=== PATIENT | female | born 1985 | race Caucasian/White ===

== ENCOUNTER 2018-04-23 00:23 | Emergency (ER) | payer BC, OTHER ==
[~2018-04-23] VITALS: Ht 160 cm; Wt 58.1 kg
--- OUTSIDE RECORDS SUMMARY | 2018-04-23 00:28 | XMS REPORT ---
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 Name Role Phone JANEDANY LawsonELE Unavailable PROBLEMS Unknown Problems ALLERGIES No Known Allergies ENCOUNTERS Encounter Location Date Diagnosis [facility] [address] [facility] [id number] [place] [address] Aug, Strep pharyngitis J02.0 and Sore throat J02.9 IMMUNIZATIONS No Known Immunizations SOCIAL HISTORY Never Assessed REASON FOR VISIT sore throat started last night JStrasserRN PLAN OF CARE Activity Details Follow Up prn Reason: VITAL SIGNS Height 63.75 in 2017-09-02 Weight 150.4 lbs 2017-09-02 Temperature 97.9 degrees Fahrenheit 2017-09-02 Heart Rate 80 bpm 2017-09-02 Respiratory Rate 20 2017-09-02 BMI 26.02 kg/m2 2017-09-02 Blood pressure systolic 128 mmHg 2017-09-02 Blood pressure diastolic 80 mmHg 2017-09-02 MEDICATIONS Medication Instructions Dosage Frequency Start Date End Date Duration Status Amoxicillin 500 mg Orally every 12 hrs 1 capsule 12h 18 Aug, 2017 Aug, 10 day(s) Active RESULTS Name Result Date Reference Range STREP A (IN HOUSE) 2017-09-02 STREP A positive Control + Lot # [id number] Exp date 08-15-2018 PROCEDURES Procedure Date Ordered Result Body Site STREP A ASSAY W/OPTIC Sep 02, 2017 INSTRUCTIONS MEDICATIONS ADMINISTERED No Known Medications
[2018-04-23 00:42] LABS: BASOPHILS % (AUTO) 1 % (0-10); EOSINOPHILS # (AUTO) 0.1 10^3/uL (0.0-0.3); EOSINOPHILS % (AUTO) 1 % (0-10); HEMATOCRIT 38 % (35-52); HEMOGLOBIN 12.7 G/DL (11.5-16.0); LYMPHOCYTES # (AUTO) 2.3 X 10^3 (1.0-4.0); LYMPHOCYTES % (AUTO) 54 % (12-44); MEAN CORPUSCULAR HEMOGLOBIN 28 PG (25-34); MEAN CORPUSCULAR HGB CONC 33 G/DL (32-36); MEAN CORPUSCULAR VOLUME 84 FL (80-99); MEAN PLATELET VOLUME 9.2 FL (7.4-10.4); MONOCYTES # (AUTO) 0.4 X 10^3 (0.0-1.0); MONOCYTES % (AUTO) 10 % (0-12); NEUTROPHILS # (AUTO) 1.5 X 10^3 (1.8-7.8); NEUTROPHILS % (AUTO) 35 % (42-75); PLATELET COUNT 212 10^3/uL (130-400); RED BLOOD COUNT 4.53 10^6/uL (4.35-5.85); RED CELL DISTRIBUTION WIDTH 18.8 % (10.0-14.5); WHITE BLOOD COUNT 4.2 10^3/uL (4.3-11.0)
[2018-04-23] MEDS ORDERED: PANTOPRAZOLE 40 MG/10 ML (PROTONIX) VIAL IV ONE (00:45)
[2018-04-23] MEDS ORDERED: HYOSCYAMINE 0.125 MG (LEVSIN) TAB PO ONE (00:45)
[2018-04-23] MEDS ORDERED: KETOROLAC 30 MG/ML VIAL IVP STA (00:45)
[2018-04-23] MEDS ORDERED: LEVO75TA6 PO (00:57)
[2018-04-23 01:03] LABS: PROTHROMBIN TIME PATIENT 12.8 SEC (12.2-14.7)
[2018-04-23 01:10] LABS: ALANINE AMINOTRANSFERASE 53 U/L (0-55); ALBUMIN 4.6 GM/DL (3.2-4.5); ALKALINE PHOSPHATASE 62 U/L (40-136); AMYLASE 61 U/L (25-125); BILIRUBIN,TOTAL 0.4 MG/DL (0.1-1.0); BUN/CREATININE RATIO 11; CALCIUM 9.6 MG/DL (8.5-10.1); CARBON DIOXIDE 27 MMOL/L (21-32); CHLORIDE 101 MMOL/L (98-107); CREATINE KINASE 45 U/L (29-168); GFR ESTIMATED 57; GLUCOSE 97 MG/DL (70-105); LIPASE 40 U/L (8-78); MAGNESIUM 1.9 MG/DL (1.8-2.4); POTASSIUM 3.5 MMOL/L (3.6-5.0); SODIUM 141 MMOL/L (135-145); TOTAL PROTEIN 7.2 GM/DL (6.4-8.2)
[2018-04-23 01:18] LABS: CREATINE KINASE MB 0.7 NG/ML (<6.6); MYOGLOBIN SERUM 19.6 NG/ML (10.0-92.0)
[2018-04-23] MEDS ORDERED: NS 250 ML (IVPB) BAG IV ONE (01:30)
[2018-04-23] MEDS ORDERED: IOHEXOL 350 MG/ML 150 ML (OMNIPAQUE 350) VIAL IV ONE (01:30)
[2018-04-23] MEDS ORDERED: RX-HYOSCYAMINE 0.125 MG SL (LEVSIN) PPK#6 SL STA (02:41)
[2018-04-23] MEDS ORDERED: RX-ONDANSETRON 4 MG ODT (ZOFRAN) PPK #4 PO STA (02:41)
[2018-04-23] MEDS ORDERED: RX-HYDROCODONE/APAP 5/325 MG #4 TAB PK PO PRN (02:45)
[2018-04-23] MEDS ORDERED: ACHD5005 PO (02:47)
[2018-04-23] MEDS ORDERED: PANT40TA2 PO (02:47)
[2018-04-23] MEDS ORDERED: HYOS0.1283 SL (02:47)
[2018-04-23] MEDS ORDERED: ONDA4TAB8 PO (02:47)
--- NOTE | 2018-04-23 02:47 | ED Chest Pain ---
General Chief Complaint: Chest Pain Stated Complaint: CP Nursing Triage Note: TO ED AMB WITH REPORT OF CP STARTING AFTER EATING MEAL OF FRIED FOOD AT 2130. PT W/ SUBSTERNAL CP AND EPIGASTRIC TENDERNESS. PAIN WAS "10" AND NOW "3-4" Nursing Sepsis Screen: No Definite Risk Allergies and Home Medications Allergies Uncoded Allergies: NEOSPORIN (Adverse Reaction, Unknown, 04/23/18) Home Medications Levothyroxine Sodium 75 Mcg Tablet, 75 MCG PO DAILY, (Reported) Past Sptpwxc-Ozdapw-Mjsciz Hx Patient Social History Alcohol Use: Denies Use Recreational Drug Use: No Smoking Status: Never a Smoker Recent Foreign Travel: No Contact w/Someone Who Travel: No Recent Infectious Disease Expo: No Recent Hopitalizations: Yes ( 03/08/18) Seasonal Allergies Seasonal Allergies: No Past Medical History Surgeries: Yes (D&C, X 4) Section Respiratory: Yes (HX CHILDHOOD ASTHMA) Asthma Neurological: No : No Hx : 8 Hx Para: 5 Hx Total # of Abortions (Sp): 4 Genitourinary: No Gastrointestinal: No Musculoskeletal: No Endocrine: Yes (THYROIDITIS-TX RADIOACTIVE IODINE) HEENT: No Cancer: No Psychosocial: No Integumentary: No (STAPH INFECTION INCISION AFTER ) Blood Disorders: No Physical Exam Vital Signs Vital Signs - First Documented 04/23/18 00:26 Temp 98.4 Pulse 78 Resp 20 B/P (MAP) 157/80 (105) Pulse Ox 96 O2 Delivery Room Air Capillary Refill : Less Than 3 Seconds Height, Weight, BMI Height: 5'3.00" Weight: 128lbs. oz. 58.219430lf; BMI Method:Stated Progress/Results/Core Measures Results/Orders Lab Results Laboratory Tests Test 04/23/18 00:35 Range/Units White Blood Count 4.2 L 4.3-11.0 10^3/uL Red Blood Count 4.53 4.35-5.85 10^6/uL Hemoglobin 12.7 11.5-16.0 G/DL Hematocrit 38 35-52 % Mean Corpuscular Volume 84 80-99 FL Mean Corpuscular Hemoglobin 28 25-34 PG Mean Corpuscular Hemoglobin Concent 33 32-36 G/DL Red Cell Distribution Width 18.8 H 10.0-14.5 % Platelet Count 212 130-400 10^3/uL Mean Platelet Volume 9.2 7.4-10.4 FL Neutrophils (%) (Auto) 35 L 42-75 % Lymphocytes (%) (Auto) 54 H 12-44 % Monocytes (%) (Auto) 10 0-12 % Eosinophils (%) (Auto) 1 0-10 % Basophils (%) (Auto) 1 0-10 % Neutrophils # (Auto) 1.5 L 1.8-7.8 X 10^3 Lymphocytes # (Auto) 2.3 1.0-4.0 X 10^3 Monocytes # (Auto) 0.4 0.0-1.0 X 10^3 Eosinophils # (Auto) 0.1 0.0-0.3 10^3/uL Basophils # (Auto) 0.0 0.0-0.1 10^3/uL Prothrombin Time 12.8 12.2-14.7 SEC INR Comment 1.0 0.8-1.4 Activated Partial Thromboplast Time 28 24-35 SEC Sodium Level 141 135-145 MMOL/L Potassium Level 3.5 L 3.6-5.0 MMOL/L Chloride Level 101 98-107 MMOL/L Carbon Dioxide Level 27 21-32 MMOL/L Anion Gap 13 5-14 MMOL/L Blood Urea Nitrogen 12 7-18 MG/DL Creatinine 1.10 0.60-1.30 MG/DL Estimat Glomerular Filtration Rate 57 BUN/Creatinine Ratio 11 Glucose Level 97 70-105 MG/DL Calcium Level 9.6 8.5-10.1 MG/DL Corrected Calcium 8.5-10.1 MG/DL Magnesium Level 1.9 1.8-2.4 MG/DL Total Bilirubin 0.4 0.1-1.0 MG/DL Aspartate Amino Transf (AST/SGOT) 54 H 5-34 U/L Alanine Aminotransferase (ALT/SGPT) 53 0-55 U/L Alkaline Phosphatase 62 40-136 U/L Total Creatine Kinase 45 29-168 U/L Creatine Kinase MB 0.7 <6.6 NG/ML Myoglobin 19.6 10.0-92.0 NG/ML Troponin I < 0.30 <0.30 NG/ML B-Type Natriuretic Peptide 13.6 <100.0 PG/ML Total Protein 7.2 6.4-8.2 GM/DL Albumin 4.6 H 3.2-4.5 GM/DL Amylase Level 61 25-125 U/L Lipase 40 8-78 U/L Serum Test, Qualitative NEGATIVE NEGATIVE My Orders Orders - CARLITOS DUNNE DO Cbc With Automated Diff (04/23/18 00:34) Magnesium (04/23/18 00:34) Chest 1 View, Ap/Pa Only (04/23/18 00:34) Ekg Tracing (04/23/18:34) Cardiac Profile 1 (04/23/18:34) Comprehensive Metabolic Panel (04/23/18:34) Myoglobin Serum (04/23/18:34) Protime With Inr (04/23/18:34) Partial Thromboplastin Time (04/23/18:34) O2 (04/23/18:34) Monitor-Rhythm Ecg Trace Only (04/23/18:34) Lipid Panel (04/24/18 06:00) Saline Lock/Iv-Start (04/23/18:34) Creatine Kinase (04/23/18:34) Creatine Kinase Mb (04/23/18:34) Lipase (04/23/18 00:34) Amylase (04/23/18:34) BNP (04/23/18:34) Hcg,Qualitative Serum (04/23/18:34) Ct Angio Chst/Abd/Pelv W (04/23/18 00:45) Ketorolac Injection (Toradol Injection) (04/23/18 00:45) Hyoscyamine Sl Tablet (Levsin Sl Tablet) (04/23/18 00:45) Pantoprazole Injection (Protonix Injecti (04/23/18 00:45) Iohexol Injection (Omnipaque 350 Mg/Ml 1 (04/23/18 01:30) Ns (Ivpb) (Sodium Chloride 0.9%) (04/23/18 01:30) Rx-Hydrocodone/Apap 5-325 Mg (Rx-Vicodin (04/23/18 02:45) Rx-Hyoscyamine Tab (Rx-Levsin Sl) (04/23/18 02:41) Rx-Ondansetron Po (Rx-Zofran Po) (04/23/18 02:41) Medications Given in ED Current Medications Medications Dose Ordered Sig/Suzanna Route Start Time Stop Time Status Last Admin Dose Admin Hyoscyamine Sulfate 0.25 mg ONCE ONCE PO 04/23/18 00:45 04/23/18 00:48 DC 04/23/18 00:59 0.25 MG Iohexol 150 ml ONCE ONCE IV 04/23/18 01:30 04/23/18 01:31 DC 04/23/18 01:26 125 ML Pantoprazole 40 mg ONCE ONCE IV 04/23/18 00:45 04/23/18 00:48 DC 04/23/18 01:00 40 MG Sodium Chloride 250 ml ONCE ONCE IV 04/23/18 01:30 04/23/18 01:31 DC 04/23/18 01:26 80 ML Vital Signs/I&O 04/23/18 04/23/18 04/23/18 00:26 00:26 00:59 Temp 98.4 98.4 Pulse 78 Resp 20 B/P (MAP) 157/80 (105) Pulse Ox 96 O2 Delivery Room Air Room Air Blood Pressure Mean: 105 Departure Impression Primary Impression: Biliary colic Disposition: HOME, SELF-CARE Condition: Improved Departure-Patient Inst. Referrals: SHALA BUNN DO UNKNOWN (PCP) Primary Care Physician Patient Instructions: POSS GALLSTONE-W/BILIARY COLIC Add. Discharge Instructions: CLEAR LIQUIDS FOR 1-2 DAYS--WATER, BROTH, JELLO, GATORADE WHEN YOU ARE FEELING BETTER, ADD BRATS DIET TO CLEAR LIQUIDS--BANANAS, RICE, APPLESAUCE, TOAST. SALTINES THEN YOU MAY FOLLOW A BLAND DIET AFTER THAT FOLLOW UP WITH DR. BANKS TOMORROW SCHEDULED FOLLOW UP WITH DR. BUNN OR SURGEON OF CHOICE FOR GALLBLADDER AND POSSIBLE ABSCESS/FLUID AROUND SCAR All discharge instructions reviewed with patient and/or family. Voiced understanding. Scripts Hydrocodone Bit/Acetaminophen (Hydrocodone/Acetaminophen 5/325mg Tablet) 1 Tab Tab 1 EACH PO Q4H, #20 TAB Prov: CARLITOS DUNNE DO 04/23/18 Ondansetron (Zofran Odt) 4 Mg Tab.rapdis 4 MG PO Q4H for Nausea/Vomiting, #10 TAB Prov: KELLIE DUNNEA K DO 04/23/18 Hyoscyamine Sulfate (Levsin-Sl) 0.125 Mg Tab.subl 1-2 TAB SL Q4H for Abdominal Pain, #15 TAB Prov: CARLITOS DUNNE DO 04/23/18 Pantoprazole Sodium (Protonix) 40 Mg Tablet.dr 40 MG PO DAILY, #15 TAB Prov: CARLITOS DUNNE DO 04/23/18 CARLITOS DUNNE DO Apr 23, 2018 02:47
[2018-04-23 03:15] VITALS: BP 113/82
--- NOTE | 2018-04-23 07:41 | Diagnostic Imaging Report ---
EXAMINATION: Chest radiograph, portable AP view. DATE: April 23, 2018 at 01:30 hours. INDICATION: 33-year-old female, epigastric pain. COMPARISON: None. FINDINGS: Heart size and mediastinal contours are unremarkable. There is no identified pneumothorax. There is no large pleural effusion. There are linear opacities in the mid to lower lung zones most likely reflecting scarring and chronic lung changes. There is no focal airspace consolidation. IMPRESSION: 1. Changes of chronic lung disease which are most prominent in the xjy-xs-xwnwd lung zones. 2. No identified acute cardiopulmonary abnormality. Dictated by: Dictated on workstation # [id number]
--- NOTE | 2018-04-23 08:49 | Diagnostic Imaging Report ---
PROCEDURE: CT angiography of the chest with contrast and CT abdomen and pelvis with contrast. TECHNIQUE: Multiple contiguous axial images were obtained through the chest, abdomen and pelvis after administration of intravenous contrast. Reconstructed MIP CT angiography acquisitions of the aorta were then performed. DATE: April 23, 2018. COMPARISON: Chest radiograph April 23, 2018. INDICATION: 33-year-old female, epigastric pain after eating fried food. FINDINGS: There are linear opacities with associated distortion in the right upper lobe, right middle lobe, right lower lobe, left upper lobe, and left lower lobe compatible with areas of scarring. There are foci of bronchiectasis. There is somewhat mosaic lung attenuation. There is no pulmonary nodule or mass. There are somewhat dilated right lower lobe pulmonary artery branches. There is no additional focal airspace consolidation. There is no pneumothorax. There is no pleural effusion. The central airways are patent. There is no identified pulmonary embolus. The heart is not enlarged. There is no pericardial effusion. There is pectus excavatum. There is no abnormally enlarged mediastinal, hilar, or axillary lymph node which meets CT size criteria for adenopathy. There is no CT apparent esophageal wall thickening. There is no visible foreign body. The liver is unremarkable in size and contour. There is no identified liver lesion. The main, right, and left portal veins are patent. There is low attenuation on both sides of the portal triads likely reflecting mild periportal edema. The gallbladder is mildly distended. There is no CT apparent gallstone. There is no evidence of acute cholecystitis. There is no intrahepatic or extrahepatic bile duct dilation. The main pancreatic duct is not abnormally dilated. The pancreatic parenchyma is unremarkable. The spleen is normal in size. There is an accessory splenule on axial image 34. The adrenal glands are unremarkable. Unremarkable appearance of the renal parenchyma. The urinary collecting systems are not distended. There is no identified renal or ureteral stone. The urinary bladder is unremarkable in appearance. There is very heterogeneous attenuation of the uterus which is prominent in size. There is low attenuation within the central aspect of the uterus which may potentially reflect fluid within the endometrial canal. There is a oval fat-containing focus in the left adnexa potentially relating to a small dermoid measuring 7 mm in size on axial image 69. The intestinal tract is not distended. There are no findings to specifically suggest acute appendicitis. There is a small fat-containing umbilical hernia. There is no free intraperitoneal air. There is a akvtq-mp-slbfd amount of free pelvic fluid. There is a peripherally enhancing area of fluid in the lower anterior abdominal wall subcutaneous tissues measuring 4.0 x 1.2 cm in size. There is no identified abnormally enlarged lymph node within the abdomen or pelvis which meets CT size criteria for adenopathy. There is no identified acute bony abnormality. IMPRESSION: CT CHEST, ABDOMEN, AND PELVIS: 1. Multifocal scarring and fibrotic changes within the lungs bilaterally with areas of mild bronchiectasis in mosaic lung attenuation most likely reflecting small airways disease and air-trapping. 2. No identified acute cardiopulmonary abnormality. 3. Peripherally enhancing fluid collection within the lower anterior abdominal wall subcutaneous tissues which may potentially reflect abscess, hematoma, or seroma measuring 4.0 x 1.2 cm in size. Recommend correlation clinically. 4. Very heterogeneous appearance of the uterus which is enlarged with fluid in the endometrial canal. This is entirely nonspecific in appearance. Gynecologic evaluation may be helpful. 5. A 7 mm round fat attenuation focus in the left adnexa which may potentially reflect a small dermoid. 6. Eetsc-or-ldoqg volume of free pelvic fluid. Dictated by: Dictated on workstation # [id number]
== END 2018-04-23 03:15 | disposition home or self-care (01) ==
LOC: ER 00:24
DX: K80.50 Calculus of bile duct without cholangitis or cholecystitis without obstruction (principal); J45.909 Unspecified asthma, uncomplicated; Z88.1 Allergy status to other antibiotic agents
CPT/HCPCS: 36415; 71045; 71275; 74174; 80053; 82150; 82550; 82553; 83690; 83735; 83874; 83880; 84484; 84703; 85025; 85610; 85730; 93005; 93041; 96374; 96375

== ENCOUNTER 2018-06-20 06:41 | Outpatient (CLI) | payer BC ==
[~2018-06-20] VITALS: Ht 160 cm; Wt 59.0 kg
[~2018-06-20 06:41] MED LIST: ACHD5005 PO; HYOS0.1283 SL; LEVO75TA6 PO; ONDA4TAB8 PO; PANT40TA2 PO
[2018-06-20] MEDS ORDERED: bcp PO (12:37)
[2018-06-23] MEDS ORDERED: ACHD5005 PO (10:01)
== END 2018-06-20 12:43 | disposition home or self-care (01) ==
LOC: PREOP 06:41
PROVIDERS: ATTEND Surgery
DX: Z01.818 Encounter for other preprocedural examination (principal)

== ENCOUNTER 2018-06-23 07:20 | Day surgery (SDC) | payer BC ==
[~2018-06-23] VITALS: Ht 160 cm; Wt 59.0 kg
[~2018-06-23 07:20] MED LIST changes: +bcp PO
[2018-06-23 07:24] VITALS: BP 126/86
[2018-06-23] MEDS ORDERED: LIDOCAINE/EPI 1%-1:200,000 (XYLOCAINE) 10 ML VIAL ONE (07:28)
[2018-06-23] MEDS ORDERED: ceFAZolin 2 GM IV Premixed 50 ML IV ONE (07:30)
[2018-06-23] MEDS: LACTATED RINGERS 1,000 ML IV PRN ×2 (07:40→10:03)
[2018-06-23 07:47] LABS: BASOPHILS % (AUTO) 1 % (0-10); EOSINOPHILS # (AUTO) 0.1 10^3/uL (0.0-0.3); EOSINOPHILS % (AUTO) 1 % (0-10); HEMATOCRIT 37 % (35-52); HEMOGLOBIN 13.1 G/DL (11.5-16.0); LYMPHOCYTES # (AUTO) 1.8 X 10^3 (1.0-4.0); LYMPHOCYTES % (AUTO) 41 % (12-44); MEAN CORPUSCULAR HEMOGLOBIN 31 PG (25-34); MEAN CORPUSCULAR HGB CONC 35 G/DL (32-36); MEAN CORPUSCULAR VOLUME 89 FL (80-99); MEAN PLATELET VOLUME 9.6 FL (7.4-10.4); MONOCYTES # (AUTO) 0.4 X 10^3 (0.0-1.0); MONOCYTES % (AUTO) 9 % (0-12); NEUTROPHILS # (AUTO) 2.1 X 10^3 (1.8-7.8); NEUTROPHILS % (AUTO) 48 % (42-75); PLATELET COUNT 185 10^3/uL (130-400); RED BLOOD COUNT 4.17 10^6/uL (4.35-5.85); RED CELL DISTRIBUTION WIDTH 12.5 % (10.0-14.5); WHITE BLOOD COUNT 4.4 10^3/uL (4.3-11.0)
[2018-06-23] MEDS ORDERED: SEVOFLURANE (ULTANE) 15 ML INHAL SOLN ONE ×2 (08:33→09:41)
[2018-06-23] MEDS ORDERED: DEXAMETHASONE 10 MG/ML (DECADRON) 1 ML VIAL ONE (08:33)
[2018-06-23] MEDS ORDERED: proPOfol 200 MG/20 ML (DIPRIVAN) VIAL IV ONE (08:33)
[2018-06-23] MEDS ORDERED: ROCURONIUM 10 MG/ML 5 ML SYRINGE IV ONE (08:33)
[2018-06-23] MEDS ORDERED: ONDANSETRON 4 MG/2 ML (SDV) Z0FRAN ONE (08:33)
[2018-06-23] MEDS ORDERED: MIDAZOLAM 2 MG/2 ML (VERSED) VIAL ONE (08:33)
[2018-06-23] MEDS ORDERED: fentaNYL INJECTION 100 MCG/2 ML AMP ONE ×2 (08:33→09:26)
--- NOTE | 2018-06-23 09:01 | Progress Note-Pre Operative ---
Pre-Operative Progress Note H&P Reviewed The H&P was reviewed, patient examined and no changes noted. Time Seen by Provider: 08:56 Date H&P Reviewed: Jun 23, 2018 Time H&P Reviewed: 08:57 Pre-Operative Diagnosis: Rosalinda/Rosalinda RYLIE ARIAS DO Jun 23, 2018 09:01
[2018-06-23] MEDS ORDERED: GLYCOPYRROLATE 0.2 MG/ML (ROBINUL) 2 ML VIAL ONE ×2 (09:14→09:22)
[2018-06-23] MEDS ORDERED: NEOSTIGMINE 1 MG/ML 5 ML SYRINGE ONE (09:22)
[2018-06-23] MEDS ORDERED: KETOROLAC 30 MG/ML VIAL ONE (09:49)
--- NOTE | 2018-06-23 10:00 | Progress Note-Post Operative ---
Post-Operative Progess Note Surgeon (s)/Intermediate Manager (s) Surgeon RYLIE ARIAS DO Intermediate Manager: Miguel Pre-Operative Diagnosis Dario/Dario Post-Operative Diagnosis same pending pathology Procedure & Operative Findings Date of Procedure 06/23/18 Procedure Performed/Findings Lap dario with IOC Anesthesia Type GET Estimated Blood Loss Estimated blood loss (mL): scant Specimens/Packing Specimens Removed GB and contents RYLIE ARIAS DO Jun 23, 2018 10:00
[2018-06-23] MEDS ORDERED: ACHD5005 PO (10:01)
--- NOTE | 2018-06-23 10:03 | Discharge Inst-Surgical ---
Discharge Inst-Surgical Depart Medication/Instructions New, Converted or Re-Newed RX: RX Given to Pt/Family Patient Instructions Follow up Appt: Make appointment for 1 week; [phone]. Instructions: No lifting greater than 10 pounds. No strenuous activity. May shower in 24 hours, no tub bath or soaking. Use incentive spirometer at home as directed. No Smoking Skin/Wound Care: May remove bandages in am. You need to leave the Dermabond on over incision it will fall off on its own. Symptoms to Report: Appetite Changes, Extremity Discoloration, Numbness/Tingling, Swelling Increased , Bleeding Excessive, Eyesight Changes, Pain Increased, Urine Color Change, Constipation(Persistent), Fever over 101 degree F, Pain/Pressure in chest, Urinating Difficulty, Cough Up/Vomit Blood, Heart Beat Irreg/Pounding, Pain/ Pressure in jaw, Vaginal Bleeding Increase, Cramps in feet or legs, Lightheadedness, Pain/Pressure in shoulder, Diarrhea(Persistent), Memory Changes Suddenly, Questions/Concerns, Weight gain consecutive days, Dizziness/ Fainting, Nausea/Vomiting, Shortness of Breath, Weight gain over 2 pounds. If eyes or skin turn yellow notify physician. If questions or concerns contact your physician Or seek help at emergency department. Activity Activity Instructions: Avoid Stress to Incision Driving Instructions: No Driving/Refer to Diet Discharge Diet: Avoid Fatty Foods (no fried foods), Low Fat/Low Cholesterol Diet After 24 Hours: Clear Liquid if Nauseous If Any Problems/Questions/Issu: Contact Your Physician, Go to Emergency Room Skin/Wound Care Infection Signs and Symptoms: Increased Redness, Foul Odor of Wound, Increased Drainage, Skin Itchy or Has a Rash, Increased Swelling, Temperature Above 101 F Wound Care Comment: Heating pad to neck or shoulder tonight for pain Bathing Instructions: Shower Stitches/Juanita/Dermabond Dis: Dermabond Ice Pack: Ice On and Off Site (as needed for pain) RYLIE ARIAS DO Jun 23, 2018 10:03
[2018-06-23] MEDS ORDERED: HYDROmorphone 2 MG/ML VIAL (DILAUDID) IV ONE (10:30)
[2018-06-23] MEDS ORDERED: MEPERIDINE (DEMEROL) INJ 50 MG/ML IVP ONE (10:30)
[2018-06-23] MEDS ORDERED: ONDANSETRON 4 MG/2 ML (SDV) Z0FRAN IVP PRN (10:30)
[2018-06-23] MEDS ORDERED: fentaNYL INJECTION 100 MCG/2 ML AMP IVP ONE (10:30)
[2018-06-23 11:10] VITALS: BP 123/77
[2018-06-23 11:40] VITALS: BP 108/74
[2018-06-23] MEDS ORDERED: ONDANSETRON 4 MG/2 ML (SDV) Z0FRAN IVP ONE (12:00)
[2018-06-23] MEDS ORDERED: HYDROcodone/APAP 5 MG/325 MG (LORTAB) TAB PO ONE (12:15)
[2018-06-23 12:50] VITALS: BP 112/78
--- NOTE | 2018-06-23 13:02 | Diagnostic Imaging Report ---
INDICATION: Gallbladder disease. FINDINGS: The intraoperative cholangiogram demonstrates normal caliber of the intrahepatic and extrahepatic biliary ducts. No intrinsic or extrinsic filling defects are appreciated. There is free spill of contrast into the duodenum. There is no pathological extravasation of contrast. IMPRESSION: Unremarkable intraoperative cholangiogram status post cholecystectomy. Please correlate with the formal operative report. Dictated by: Dictated on workstation # [id number]
[2018-06-23 13:14] VITALS: BP 112/78
--- NOTE | 2018-06-23 14:52 | Anesthesia-General Post-Op ---
General Patient Condition Mental Status/LOC: Same as Preop Cardiovascular: Satisfactory Nausea/Vomiting: Absent Respiratory: Satisfactory Pain: Controlled Complications: Absent Post Op Complications Complications None Follow Up Care/Instructions Patient Instructions None needed. Anesthesia/Patient Condition Patient Condition Patient is doing well, no complaints, stable vital signs, no apparent adverse anesthesia problems. No complications reported per nursing. SIERRA STORY CRNA Jun 23, 2018 14:52
--- NOTE | 2018-06-23 19:21 | OPERATIVE REPORT ---
DATE OF SERVICE: PREOPERATIVE DIAGNOSES: Cholelithiasis, cholecystitis. POSTOPERATIVE DIAGNOSES: Cholelithiasis, cholecystitis, pending pathology. PROCEDURE: Laparoscopic cholecystectomy with intraoperative cholangiogram. SURGEON: Karel Arias DO. RN VASCULAR: Henrique Rivera DO. ANESTHESIA: General endotracheal tube. SPECIMEN: Gallbladder and contents. BLOOD LOSS: Scant. FLUIDS: Per anesthesia. POSTOPERATIVE CONDITION: Stable. INDICATION FOR PROCEDURE: The patient is a 33-year-old female who was having some right upper quadrant pain usually associated with fried and fatty foods and as an outpatient actually during a ultrasound, was found to have gallstones according to the report. The patient sounds classic for cholecystitis. Elected to have surgery. FINDINGS: The patient had some mild adhesions to the liver, none really to the gallbladder. Cholangiogram showed no stones in the duct. PROCEDURE NOTE: After informed consent was obtained, the patient was brought to the operating room, placed on the table in supine position. She was sterilely prepped and draped in normal fashion. Local lidocaine used to infiltrate the skin above the umbilicus. I made an incision with #11 blade, carried down through the skin into subcutaneous tissue and deepened down subcutaneous tissue with Bovie electrocautery down to the fascia. Fascia was incised with Bovie electrocautery and bluntly entered the abdomen, swept the finger around, placed 0 Vicryl [id number]-kzrnm suture and placed an 11 mm trocar port under direct visualization. Created pneumoperitoneum and then placed 3 more ports in normal fashion using local lidocaine, 11 blade for stab incision and Versed system, all done under direct visualization, one subxiphoid and 2 in the right upper quadrant. The patient then placed in reverse Trendelenburg and rotated to left, able to grasp the gallbladder fundus, taken in superior direction. The ghosh were mildly thickened and there were some adhesions of omentum to the liver, but not to the gallbladder. Able to grasp the gallbladder, Stewart's pouch and then noted that the artery was on top, able to get around the artery with the [place] that clipped once proximally and twice distally and then cut with Metzenbaum scissors. There was a little bleeding, looked like one of the clips was not all the way clipped down, so clipped another clip and then used a little bit of Bovie electrocautery to stop the bleeding and started dissecting out the cystic duct, able to get down to cystic duct. It was a little bit larger than normal. Placed one clip distally and then cut senior living through Metzenbaum scissors. Placed a cholangiogram catheter and shot a cholangiogram. Good spillage of dye down the cystic duct and into the common bile duct down the small intestine as well as up in the common hepatic and right and left hepatics. I then removed the cholangiogram catheter, placed 2 clips proximally on the cystic duct and cut the cystic duct with Metzenbaum. I removed the gallbladder from the bed of liver with L-hook cautery. Once this was completely removed, I placed a bag in the abdomen, placed the gallbladder in a bag and removed this through the supraumbilical incision. Placed the port back in the abdomen, copiously irrigated with normal saline, suctioned all this out, looked around. I do not see any obvious pathology. At this point, the patient was then placed supine, removed all ports under inflation visualization and allowed the pneumoperitoneum to escape. Closed the supraumbilical incision with 0 Vicryl vufiri-ba-dbgqg suture, then closed the three 5 mm incisions with a single interrupted 4-0 undyed Monocryl subcuticular stitch. Closed the supraumbilical incision with 3 interrupted 4-0 undyed Monocryl subcuticular stitches. Area was cleaned and dried and Dermabond used, Band-Aid was placed and the patient then transferred to recovery room in stable condition. Sponge and needle counts correct at the end of the case. Dr. Rivera assisted in this case helping to make incisions close incisions, hold the anatomy out of the way and identified anatomy. Job ID: [id number] DocumentID: [id number] Dictated Date: 06/23/2018 10:44:26 Line Crew Supervisor Date: 06/23/2018 17:22:14 Dictated By: KAREL ARIAS DO
== END 2018-06-23 13:14 | disposition home or self-care (01) ==
LOC: SDC 07:20
PROVIDERS: ATTEND Surgery
DX: K81.1 Chronic cholecystitis (principal); Z11.2 Encounter for screening for other bacterial diseases
CPT/HCPCS: 36415; 84703; 85025; 87081

== ENCOUNTER 2018-10-01 01:09 | Inpatient (IN) | payer BC ==
[~2018-10-01] VITALS: Ht 162.6 cm; Wt 70.8 kg
[2018-10-01] VITALS (21 sets, daily range): BP systolic 81–133; BP diastolic 55–87
--- OUTSIDE RECORDS SUMMARY | 2018-10-01 01:17 | XMS REPORT ---
Author Author RENATE RUDD [facility] Address [address] [place] [address] Care Team Providers Care Network Support Analyst Name Role Phone RENATE RUDD Unavailable PROBLEMS Unknown Problems ALLERGIES Substance Reaction Event Type Date Status Neosporin rash Drug Allergy Aug, Active ENCOUNTERS Encounter Location Date [facility] [address] [facility] [id number] [address] Aug, Dysuria R30.0 and Urinary tract infection without hematuria , site unspecified N39.0 [facility] [address] [facility] [id number] [address] Aug, Strep pharyngitis J02.0 and Sore throat J02.9 IMMUNIZATIONS No Known Immunizations SOCIAL HISTORY Never Assessed REASON FOR VISIT Burning started yesterday JStrasserRN PLAN OF CARE Activity Details Follow Up if not improving or regular follow up with pcp Reason: VITAL SIGNS Height 63.75 in 2018-08-30 Weight 137.0 lbs 2018-08-30 Temperature 98.2 degrees Fahrenheit 2018-08-30 Heart Rate 76 bpm 2018-08-30 Respiratory Rate 20 2018-08-30 BMI 23.70 kg/m2 2018-08-30 Blood pressure systolic 120 mmHg 2018-08-30 Blood pressure diastolic 80 mmHg 2018-08-30 MEDICATIONS Medication Instructions Dosage Frequency Start Date End Date Duration Status Nitrofurantoin Monohyd Macro 100 mg Orally every 12 hrs 1 capsule with food 12h Aug, 5 days Active Levothyroxine Sodium 75 MCG Orally Once a day 1 tablet on an empty stomach in the morning 24h 30 day(s) Active RESULTS No Results PROCEDURES Procedure Date Ordered Result Body Site URINALYSIS, AUTO, W/O SCOPE Aug 30, 2018 URINE CULTURE/COLONY COUNT Aug 30, 2018 INSTRUCTIONS MEDICATIONS ADMINISTERED No Known Medications MEDICAL (GENERAL) HISTORY Type Description Date Surgical History section Surgical History cholecystectomy Hospitalization History surgery
[2018-10-01] MEDS ORDERED: ACETAMINOPHEN 500 MG TAB (TYLENOL) PO ONE (02:30)
[2018-10-01] MEDS ORDERED: PIPERACILLIN SODIUM/TAZOBACTAM 4.5 GM in NS (IVPB) 100 ML IV ONE (02:30)
[2018-10-01] MEDS ORDERED: KETOROLAC 30 MG/ML VIAL IVP ONE (02:30)
[2018-10-01 02:52] LABS: BASOPHILS % (AUTO) 0 % (0-10); EOSINOPHILS % (AUTO) 0 % (0-10); HEMATOCRIT 39 % (35-52); HEMOGLOBIN 13.7 G/DL (11.5-16.0); LYMPHOCYTES # (AUTO) 0.3 X 10^3 (1.0-4.0); LYMPHOCYTES % (AUTO) 2 % (12-44); MEAN CORPUSCULAR HEMOGLOBIN 31 PG (25-34); MEAN CORPUSCULAR HGB CONC 35 G/DL (32-36); MEAN CORPUSCULAR VOLUME 89 FL (80-99); MEAN PLATELET VOLUME 9.8 FL (7.4-10.4); MONOCYTES # (AUTO) 0.8 X 10^3 (0.0-1.0); MONOCYTES % (AUTO) 4 % (0-12); NEUTROPHILS # (AUTO) 18.9 X 10^3 (1.8-7.8); NEUTROPHILS % (AUTO) 94 % (42-75); PLATELET COUNT 163 10^3/uL (130-400); RED BLOOD COUNT 4.42 10^6/uL (4.35-5.85); RED CELL DISTRIBUTION WIDTH 12.9 % (10.0-14.5); WHITE BLOOD COUNT 20.1 10^3/uL (4.3-11.0)
[2018-10-01 03:01] LABS: INR 1.3 (0.8-1.4); PROTHROMBIN TIME PATIENT 16.6 SEC (12.2-14.7)
[2018-10-01 03:08] LABS: ALBUMIN 4.2 GM/DL (3.2-4.5); BILIRUBIN,TOTAL 1.5 MG/DL (0.1-1.0); CALCIUM 8.5 MG/DL (8.5-10.1); CREATININE SERUM 1.07 MG/DL (0.60-1.30); POTASSIUM 3.8 MMOL/L (3.6-5.0); TOTAL PROTEIN 6.9 GM/DL (6.4-8.2)
[2018-10-01 03:21] LABS: BAND NEUTROPHILS 30 %; LYMPHOCYTES % (MANUAL) 2 %; MONOCYTES % (MANUAL) 1 %; NEUTROPHILS % (MANUAL) 67 %; RBC MORPH NORMAL
[2018-10-01] MEDS ORDERED: NS IV 1000 ML 1,000 ML IV ONE ×3 (03:27→04:30)
--- NOTE | 2018-10-01 04:18 | ED General ---
General Chief Complaint: Respiratory Problems Stated Complaint: BACK HURTS WHEN PT BREATHES,CHILLS Nursing Triage Note: painful inspiration x1 day, soa Nursing Sepsis Screen: No Definite Risk Source of Information: Patient Exam Limitations: No Limitations History of Present Illness Date Seen by Provider: Oct 01, 2018 Time Seen by Provider: 01:52 Initial Comments This 33-year-old woman presents to the emergency room with complaints of pain in the left lower chest especially with inspiration. She became ill on Saturday ( this is Sat) with subjective fever and chills. She had associated nausea without vomiting. She felt very weak and stayed on the couch. She took Zofran and ibuprofen yesterday to treat her symptoms. She has had minimal cough. LMP was September 07 and she denies . Patient denies ever being a smoker. She is notably tachycardic on the monitor and her oxygen saturation is 93 percent on room air. Allergies and Home Medications Allergies Uncoded Allergies: NEOSPORIN (Adverse Reaction, Unknown, 04/23/18) Home Medications Levothyroxine Sodium 75 Mcg Tablet, 75 MCG PO DAILY, (Reported) Patient Home Medication List Home Medication List Reviewed: Yes Review of Systems Review of Systems Constitutional: see HPI EENTM: no symptoms reported Respiratory: see HPI Cardiovascular: no symptoms reported Gastrointestinal: see HPI Genitourinary: no symptoms reported Musculoskeletal: no symptoms reported Skin: no symptoms reported Psychiatric/Neurological: No Symptoms Reported Hematologic/Lymphatic: No Symptoms Reported Immunological/Allergic: no symptoms reported Past Kxnimbd-Hkrltm-Pmmjmn Hx Past Med/Social Hx: Reviewed Nursing Past Med/Soc Hx Patient Social History Alcohol Use: Denies Use Recreational Drug Use: No Smoking Status: Never a Smoker 2nd Hand Smoke Exposure: No Recent Foreign Travel: No Contact w/Someone Who Travel: No Recent Infectious Disease Expo: No Recent Hopitalizations: No Immunizations Up To Date Tetanus Booster (TDap): Unknown Seasonal Allergies Seasonal Allergies: No Past Medical History Surgeries: Yes (D&C, X 4) Section, Gallbladder Respiratory: Yes (HX CHILDHOOD ASTHMA) Asthma Cardiac: No Neurological: No : No Last Menstrual Period: Sep 07, 2018 Reproductive Disorders: No Female Reproductive Disorders: Denies Genitourinary: No Gastrointestinal: Yes Gall Bladder Disease Musculoskeletal: No Endocrine: Yes Hypothyroidsim HEENT: No Cancer: No Psychosocial: No Integumentary: No Blood Disorders: No Physical Exam-Suspected Sepsis Physical Exam Vital Signs Vital Signs - First Documented 10/01/18 01:41 Temp 98.6 Pulse 139 Resp 18 B/P (MAP) 105/74 (84) Pulse Ox 94 O2 Delivery Nasal Cannula O2 Flow Rate 2.00 Capillary Refill : Less Than 3 Seconds Blood Pressure Mean: 84 Height, Weight, BMI Height: 5'4.00" Weight: 130lbs. 0.0oz. 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 Norm as Tested Skin: normal color, warm/dry Focused Exam Sepsis Stage: Septic Shock Possible Source: Pulmonary Lactate Level 10/01/18 02:40: Lactic Acid Level 3.51*H 10/01/18 05:17: Lactic Acid Level 2.07*H Time of Focused Exam: 04:55 Respiratory: No Accessory Muscle Use, No Respiratory Distress, Crackles ( bilateral bases, left greater than right) Cardiovascular: Regular Rate, Rhythm, No Edema, No Murmur, Normal Peripheral Pulses Capillary Refill: Less Than 3 Seconds Skin: normal color, warm/dry Lactic Acid Level Laboratory Tests Test 10/01/18 05:17 Lactic Acid Level 2.07 MMOL/L (0.50-2.00) *H Within 3hrs of presentation: Admin fluids, Admin ABX, Blood cultures prior to ABX's, Focus exam, Lactate level Progress/Results/Core Measures Suspected Sepsis Recent Fever Within 48 Hours: No Infection Criteria Present: None New/Unexplained Altered Menta: No Sepsis Screen: No Definite Risk SIRS Temperature:98.6 Pulse: 139 Respiratory Rate: 18 Laboratory Tests 10/01/18 02:40: White Blood Count 20.1H Blood Pressure 105 /74 Mean: 84 10/01/18 02:40: Lactic Acid Level 3.51*H 10/01/18 05:17: Lactic Acid Level 2.07*H Laboratory Tests 10/01/18 02:40: Creatinine 1.07, INR Comment 1.3, Platelet Count 163, Total Bilirubin 1.5H Results/Orders Lab Results Laboratory Tests Test 10/01/18 02:40 10/01/18 04:25 10/01/18 05:17 Range/Units White Blood Count 20.1 H 4.3-11.0 10^3/uL Red Blood Count 4.42 4.35-5.85 10^6/uL Hemoglobin 13.7 11.5-16.0 G/DL Hematocrit 39 35-52 % Mean Corpuscular Volume 89 80-99 FL Mean Corpuscular Hemoglobin 31 25-34 PG Mean Corpuscular Hemoglobin Concent 35 32-36 G/DL Red Cell Distribution Width 12.9 10.0-14.5 % Platelet Count 163 130-400 10^3/uL Mean Platelet Volume 9.8 7.4-10.4 FL Neutrophils (%) (Auto) 94 H 42-75 % Lymphocytes (%) (Auto) 2 L 12-44 % Monocytes (%) (Auto) 4 0-12 % Eosinophils (%) (Auto) 0 0-10 % Basophils (%) (Auto) 0 0-10 % Neutrophils # (Auto) 18.9 H 1.8-7.8 X 10^3 Lymphocytes # (Auto) 0.3 L 1.0-4.0 X 10^3 Monocytes # (Auto) 0.8 0.0-1.0 X 10^3 Eosinophils # (Auto) 0.0 0.0-0.3 10^3/uL Basophils # (Auto) 0.0 0.0-0.1 10^3/uL Neutrophils % (Manual) 67 % Lymphocytes % (Manual) 2 % Monocytes % (Manual) 1 % Band Neutrophils 30 % Blood Morphology Comment NORMAL Prothrombin Time 16.6 H 12.2-14.7 SEC INR Comment 1.3 0.8-1.4 Activated Partial Thromboplast Time 35 24-35 SEC Sodium Level 135 135-145 MMOL/L Potassium Level 3.8 3.6-5.0 MMOL/L Chloride Level 100 98-107 MMOL/L Carbon Dioxide Level 21 21-32 MMOL/L Anion Gap 14 5-14 MMOL/L Blood Urea Nitrogen 16 7-18 MG/DL Creatinine 1.07 0.60-1.30 MG/DL Estimat Glomerular Filtration Rate 59 BUN/Creatinine Ratio 15 Glucose Level 147 H 70-105 MG/DL Lactic Acid Level 3.51 *H 2.07 *H 0.50-2.00 MMOL/L Calcium Level 8.5 8.5-10.1 MG/DL Corrected Calcium 8.3 L 8.5-10.1 MG/DL Total Bilirubin 1.5 H 0.1-1.0 MG/DL Aspartate Amino Transf (AST/SGOT) 16 5-34 U/L Alanine Aminotransferase (ALT/SGPT) 20 0-55 U/L Alkaline Phosphatase 60 40-136 U/L Total Protein 6.9 6.4-8.2 GM/DL Albumin 4.2 3.2-4.5 GM/DL Thyroid Stimulating Hormone (TSH) 2.71 0.35-4.94 UIU/ML Free Thyroxine 0.79 0.70-1.48 NG/DL Serum Test, Qualitative NEGATIVE NEGATIVE Urine Color YELLOW Urine Clarity CLEAR Urine pH 5 5-9 Urine Specific [place] 1.015 L 1.016-1.022 Urine Protein 2+ H NEGATIVE Urine Glucose (UA) NEGATIVE NEGATIVE Urine Ketones NEGATIVE NEGATIVE Urine Nitrite NEGATIVE NEGATIVE Urine Bilirubin NEGATIVE NEGATIVE Urine Urobilinogen NORMAL NORMAL MG/DL Urine Leukocyte Esterase NEGATIVE NEGATIVE Urine RBC (Auto) 1+ H NEGATIVE Urine RBC 0-2 /HPF Urine WBC NONE /HPF Urine Squamous Epithelial Cells 10-25 H /HPF Urine Crystals NONE /LPF Urine Bacteria TRACE /HPF Urine Casts PRESENT /LPF Urine Hyaline Casts 10-25 H /LPF Urine Mucus NEGATIVE /LPF Urine Culture Indicated CULTURE PENDING My Orders Orders - SP DIXON MD Chest Pa/Lat (2 View) (10/01/18 01:52) Cbc With Automated Diff (10/01/18 02:28) Comprehensive Metabolic Panel (10/01/18 02:28) Blood Culture (10/01/18 02:28) Sputum Culture (10/01/18 02:28) Urinalysis (10/01/18 02:28) Urine Culture (10/01/18 02:28) Protime With Inr (10/01/18 02:28) Partial Thromboplastin Time (10/01/18 02:28) Saline Lock/Iv-Start (10/01/18 02:28) Saline Lock/Iv-Start (10/01/18 02:28) Vital Signs Adult Sepsis Patie Q15M (10/01/18 02:28) O2 (10/01/18 02:28) Remove Rings In Anticipation O (10/01/18 02:28) Lactic Acid Analyzer (10/01/18 02:28) Piperacillin Sodium/Tazobactam (Zosyn Vi (10/01/18 02:30) Ketorolac Injection (Toradol Injection) (10/01/18 02:30) Acetaminophen Tablet (Tylenol Tablet) (10/01/18 02:30) Hcg,Qualitative Serum (10/01/18 02:50) Manual Differential (10/01/18 02:40) Ns Iv 1000 Ml (Sodium Chloride 0.9%) (10/01/18 03:27) Ns Iv 1000 Ml (Sodium Chloride 0.9%) (10/01/18 03:29) Saline Lock/Iv-Start (10/01/18 04:30) Ns Iv 1000 Ml (Sodium Chloride 0.9%) (10/01/18 04:30) Ct Chest W (10/01/18 04:30) Thyroid Stimulating Hormone (10/01/18 06:05) Free T4 (Free Thyroxine) (10/01/18 06:05) Medications Given in ED Current Medications Medications Dose Ordered Sig/Suzanna Route Start Time Stop Time Status Last Admin Dose Admin Acetaminophen 1,000 mg ONCE ONCE PO 10/01/18 02:30 10/01/18 02:31 DC 10/01/18 02:41 1,000 MG Ketorolac Tromethamine 15 mg ONCE ONCE IVP 10/01/18 02:30 10/01/18 02:31 DC 10/01/18 02:41 15 MG Piperacillin Sod/ Tazobactam Sod 4.5 gm/Sodium Chloride 100 ml @ 200 mls/hr ONCE ONCE IV 10/01/18 02:30 10/01/18 02:59 DC 10/01/18 03:04 200 MLS/HR Sodium Chloride 1,000 ml @ 0 mls/hr Q0M ONCE IV 10/01/18 03:27 10/01/18 03:28 DC 10/01/18 03:31 0 MLS/HR Sodium Chloride 1,000 ml @ 0 mls/hr Q0M ONCE IV 10/01/18 03:29 10/01/18 03:30 DC 10/01/18 03:33 0 MLS/HR Sodium Chloride 1,000 ml @ 0 mls/hr Q0M ONCE IV 10/01/18 04:30 10/01/18 04:31 DC 10/01/18 04:39 0 MLS/HR Vital Signs/I&O 10/01/18 10/01/18 10/01/18 10/01/18 01:41 01:41 06:05 06:15 Temp 98.6 98.8 98.2 Pulse 139 105 121 Resp 18 18 26 B/P (MAP) 105/74 (84) 84/56 (65) 85/61 (69) Pulse Ox 94 94 97 97 O2 Delivery Nasal Cannula Nasal Cannula Nasal Cannula Nasal Cannula O2 Flow Rate 2.00 2.00 2.00 2.00 10/01/18 10/01/18 10/01/18 10/01/18 06:17 06:30 06:40 06:45 Pulse 122 117 112 Resp 23 22 B/P (MAP) 84/55 (65) 85/61 (69) Pulse Ox 96 95 O2 Delivery Nasal Cannula Nasal Cannula Nasal Cannula O2 Flow Rate 2.00 2.00 2.00 10/01/18 07:00 Pulse 112 Resp 26 B/P (MAP) 82/58 (66) Pulse Ox 95 O2 Delivery Nasal Cannula O2 Flow Rate 2.00 Capillary Refill : Less Than 3 Seconds Blood Pressure Mean: 84 Progress Note #1: Time: 04:12 Progress Note Patient was worked up for sepsis after assessment. Patient does meet sepsis criteria with left lower lobe pneumonia as the source. So far, patient has not met severe sepsis criteria although she has had marginal oxygen saturation on room air and marginal blood pressure. She did have one hypotensive blood pressure measurement with a systolic blood pressure of 88, but her arm was bent over her chest at the time of the blood pressure. Blood pressure was normal after her arm was straightened. Toradol was given for pain. Tylenol was given for subjective fever. 2 L of IV fluids are infusing. Zosyn was given for initial antibiotic therapy. I will await a brief time longer to see how patient responds to antibiotics and IV fluids. Disposition to stepdown status versus ICU has yet to be determined. Patient is wearing oxygen by nasal cannula at 2 L/m for comfort. Progress Note #2: Time: 04:25 Progress Note Patient just completed 2 L of IV fluid. She had a systolic blood pressure measurement of 89. Patient now meets criteria for septic shock and will need ICU admission. If she has recurrent hypertensive measurements, we will start Levophed. Progress Note #3: Time: 05:14 Progress Note A second look at the chest x-ray raised concern for a possible cavitary area in the left lower lobe. X-ray was reviewed with Dr. Perez who agrees this area should be assessed further. CT of the chest with contrast was ordered and compared with prior. Patient has diffuse chronic lung changes including blebs. This area of concern appears to be a progression of bleb rather than a true cavitary lesion. Additionally, patient was screened for risk factors for tuberculosis. She denies foreign travel, incarceration, international service, drug or alcohol abuse, or exposure to known travelers or known carriers of tuberculosis. Her sister lives in [place] but has not been to visit in over a year and a half. CT was reviewed also by Dr. Perez. He intends to pursue a cystic lung disease workup. Progress Note #4: Time: 05:27 Progress Note Patient is still hypotensive after a third liter of IV fluid. Pressors will need to be initiated. We will start this in her peripheral IV and establish a central line. Progress Note #5: Progress Note Dr. Perez agreed to place a central line in the ICU. Patient was transferred to the ICU. Blood pressures rallied to a low-normal range in the meantime. Patient's CT scan was unusual for a nonsmoker of her age. There were fibrotic changes with blebs present. Dr. Perez will perform a cystic lung workup. Diagnostic Imaging Diagonstic Imaging: Xray Plain Films/CT/US/NM/MRI: chest Comments Chest x-ray viewed by me and report not yet available. There is a significant consolidation in the left lower lung with concern for cavitary lesion just above the diaphragm on the left. Diagonstic Imaging: CT Plain Films/CT/US/NM/MRI: chest Comments CT chest viewed by me and [facility] report reviewed. Compared with prior. Previously noted fibrotic changes involving both lungs with scattered areas of presumed air trapping is similar to exam in April. There are areas of consolidative airspace disease involving the inferior left upper lobe and the left lower lobe with suggestion of internal air bronchograms noted. Primary considerations are pneumonia or aspiration. Departure Communication (Admissions) Time/Spoke to Admitting Phy: 05:35 Dr. Pederson Time/Spoke to Consulting Phy: 04:15 Dr. Perez Impression Primary Impression: Septic shock Additional Impression: Left lower lobe pneumonia Qualified Codes: J18.1 - Lobar pneumonia, unspecified organism Disposition: ADMITTED INPATIENT Condition: Improved Admissions Decision to Admit Reason: Admit from ER (General) Decision to Admit/Date: Oct 01, 2018 Time/Decision to Admit Time: 02:30 Departure-Patient Inst. Referrals: SABA BANKS MD (PCP/Family) Primary Care Physician SP DIXON MD Oct 01, 2018 04:18
[2018-10-01 04:47] LABS: BACTERIA,URINE TRACE /HPF; BILIRUBIN,URINE NEGATIVE (NEGATIVE); CLARITY,URINE CLEAR; COLOR,URINE YELLOW; GLUCOSE, URINE (UA) NEGATIVE (NEGATIVE); KETONES,URINE NEGATIVE (NEGATIVE); LEUKOCYTE ESTERASE ,URINE NEGATIVE (NEGATIVE); NITRITE,URINE NEGATIVE (NEGATIVE); PH,URINE 5 (5-9); PROTEIN,URINE 2+ (NEGATIVE); RBC,URINE 0-2 /HPF; UROBILINOGEN,URINE NORMAL (NORMAL)
[2018-10-01 06:43] LABS: FREE T4 (FREE THYROXINE) 0.79 NG/DL (0.70-1.48)
[2018-10-01] MEDS ORDERED: NS IV 1000 ML 1,000 ML ONE (06:43)
--- NOTE | 2018-10-01 06:50 | NUR ---
ALBERT GARCES admitted to room CU5-1, with an admitting diagnosis of Sepsis, Pneumonia, on 10/01/18 from ED via stretcher, accompanied by staff.ALBERT GARCES introduced to surroundings, call light, bed controls, phone, TV, temperature control, lights, meal times, smoking policy, visitor policy, side rail policy, bathrooms and showers. Patient Rights given to patient in the handbook. ALBERT GARCES verbalizes understanding that [facility] is not responsible for the loss or damage to any personal effects or valuables that are kept in the patients possession during their hospitalization. The following Patient Care Plans were discussed with the patient: Discharge Planning, pain management, and activity intolerance. ALBERT GARCES verbalizes understanding of Interdisciplinary Patient Education. Patient and/or family were informed about the Rapid Response Team and its purpose.
[2018-10-01] MEDS ORDERED: MIDAZOLAM 5 MG/5 ML (VERSED) VIAL ONE (06:53)
[2018-10-01] MEDS ORDERED: fentaNYL INJECTION 100 MCG/2 ML AMP ONE (06:53)
[2018-10-01] MEDS ORDERED: NS IV ONE (07:00)
[2018-10-01] MEDS ORDERED: EPINEPHrine 1 MG INJECTION 5 MG in NS (IVPB) 250 ML IV SCH (07:00)
[2018-10-01] MEDS ORDERED: fentaNYL INJECTION 100 MCG/2 ML AMP IV PRN (07:00)
[2018-10-01] MEDS ORDERED: ACETAMINOPHEN 500 MG TAB (TYLENOL) PO PRN (07:00)
[2018-10-01] MEDS ORDERED: MIDAZOLAM 10 MG/2 ML (VERSED) VIAL IVP PRN (07:00)
[2018-10-01] MEDS ORDERED: fentaNYL INJECTION 100 MCG/2 ML AMP IVP PRN (07:00)
--- NOTE | 2018-10-01 07:19 | Diagnostic Imaging Report ---
INDICATION: Chest pain. Comparison with 04/23/2018. FINDINGS: There is a dense consolidated infiltrate in the left lower lung which has developed since previous exam. Right lung shows mild hyperaeration. The upper lungs are clear. The heart is not enlarged. There is no evidence of pulmonary edema. No pneumothorax or pleural effusion. IMPRESSION: 1. Dense consolidated pneumonia present left lower lung. This has developed since previous exam. Dictated by: Dictated on workstation # [id number]
[2018-10-01] MEDS ORDERED: NS IV 500 ML 500 ML IV SCH (07:30)
[2018-10-01] MEDS: NOREPINEPHRINE 4 MG in NS (IVPB) 250 ML IV SCH ×2 (08:11→18:55)
--- NOTE | 2018-10-01 08:13 | Diagnostic Imaging Report ---
PROCEDURE: CT chest with contrast only. TECHNIQUE: Multiple contiguous axial images were obtained through the chest after administration of intravenous contrast. INDICATION: Chest pain and shortness of air. Comparison is made with prior CT chest from 04/23/2018. No axillary lymphadenopathy is detected. No definite mediastinal or hilar lymphadenopathy is seen. No pericardial or pleural fluid is detected. Previously noted regions of linear parenchymal density bilateral upper lobes and lower lobes are again noted consistent with fibrotic scarring. Patient has developed areas of airspace consolidation in the posterior left upper lobe and left lower lobe since prior exam suggestive of pneumonia. Mosaic attenuation similar to prior exam, suggestive of air trapping and small airway disease. Upper abdomen is unremarkable. IMPRESSION: Chronic fibrotic changes in both lungs, similar to exam from 04/23/2018, however, patient has developed airspace consolidation in the posterior left upper lobe and portions of the left lower lobe, likely on the basis of pneumonia. No pleural fluid is seen. No other significant abnormality is detected. Dictated by: Dictated on workstation # [id number]
--- NOTE | 2018-10-01 08:19 | Diagnostic Imaging Report ---
INDICATION: Central line placement. Frontal chest obtained at 7:39 a.m. and compared to same day at 2:36 a.m. FINDINGS: There is a new right IJ central catheter tip overlying the low SVC. There is no pneumothorax following line placement. There is worsening consolidation in the left midlung and base with unchanged infiltrate in the right base. There is no other new finding. IMPRESSION: New right IJ central catheter tip overlies low SVC. There is no pneumothorax following line placement. There is worsening consolidation in the left midlung and base. There is unchanged infiltrate in the right base. Dictated by: Dictated on workstation # [id number]
--- NOTE | 2018-10-01 08:29 | History & Physical-Hospitalist ---
History of Present Illness HPI/Chief Complaint Pt is a 33yoCF with a PMH of hypothyroidism who presented to the ER due to difficulty breathing and shortness of breath. She states it started yesterday. She was very tried with decreased appetite all day yesterday and had a mild cough without sputum production. This progressed and she started to developed left sided chest pain with inspiration prompting her to seek evaluation in the ER. She was found to have LLL pneumonia with cystic appearances and possible cavitary lesion. Review by lisa Cooper, and not felt to be consistent with TB. Unfortunately she developed profound hypotension in the ER despite fluid resuscitation and was admitted to the ICU for further management of septic shock. Source: patient Date Seen 10/01/18 Time Seen by a Provider: 08:26 Attending Physician Shila Pederson MD PCP Roselyn Hobson MD Referring Physician Date of Admission Oct 01, 2018 at 05:52 Home Medications & Allergies Home Medications Reviewed patient Home Medication Reconciliation performed by pharmacy medication reconciliations submarine cable equipment technician and/or nursing. Patients Allergies have been reviewed. Allergies Allergies Uncoded Allergies NEOSPORIN ( Adverse Reaction, Unknown, 04/23/18) Past Lplqacx-Fppnmc-Dnazif Hx Past Med/Social Hx: Reviewed Nursing Past Med/Soc Hx Patient Social History Marrital Status: Employed/Student: employed Alcohol Use: Denies Use Recreational Drug Use: No Smoking Status: Never a Smoker 2nd Hand Smoke Exposure: No Physical Abuse Screen: No Sexual Abuse: No Recent Foreign Travel: No Contact w/other who traveled: No Recent Hopitalizations: No Recent Infectious Disease Expo: No Immunizations Up To Date Tetanus Booster (TDap): Unknown Pediatric: No Date of Influenza Vaccine: Jul 01, 2018 Seasonal Allergies Seasonal Allergies: No Past Medical History Surgeries: Section, Gallbladder, Thyroidectomy Currently Using CPAP: No Currently Using BIPAP: No : No Reproductive: No Female Reproductive Disorders: Denies Gastrointestinal: Gall Bladder Disease Endocrine: Hypothyroidsim Loss of Vision: Denies Hearing Impairment: Denies History of Blood Disorders: No Family History Reviewed and Corrections made Cardiovascular disease 19 MOTHER, Onset:50's - 60 Diabetes mellitus 19 FATHER, Onset:25's - 30 FH: prostate cancer 19 FATHER, Onset:50's - 60 Myocardial infarction 19 MOTHER, Onset:50's - 60 Heart Disease, Diabetes Review of Systems Constitutional: chills, fever, malaise, weakness Respiratory: cough; No phlegm Cardiovascular: chest pain Gastrointestinal: No abdominal pain; loss of appetite; No nausea, No vomiting All Other Systems Reviewed Negative Unless Noted: Yes (Negative excepted noted.) Physical Exam Physical Exam Vital Signs Vital Signs - First Documented 10/01/18 10/01/18 01:41 12:37 Temp 98.6 Pulse 139 Resp 18 B/P (MAP) 105/74 (84) Pulse Ox 94 O2 Delivery Nasal Cannula O2 Flow Rate 2.00 FiO2 32 Capillary Refill : Less Than 3 Seconds Height, Weight, BMI Height: 5'4.00" Weight: 144lbs. 0.0oz. [id number]; 24.7 BMI Method:Stated General Appearance: No Apparent Distress, WD/WN HEENT: PERRL/EOMI, Moist Mucous Membranes Neck: Non Tender, Supple Respiratory: No Respiratory Distress, Crackles (Left base) Cardiovascular: Regular Rate, Rhythm, No Murmur Gastrointestinal: Normal Bowel Sounds, Non Tender, Soft Extremity: Normal Capillary Refill, No Calf Tenderness Neurologic/Psychiatric: Alert, Oriented x3, Normal Mood/Affect Skin: Normal Color, Warm/Dry Comments Focused exam done Results Results/Procedures Labs Laboratory Tests 10/02/18 03:20 10/03/18 04:45 Patient resulted labs reviewed. Imaging: Reviewed Imaging Report Assessment/Plan Admission Diagnosis Septic Shock Admission Status: Inpatient Order (span 2 midnights) Reason for Inpatient Admission: Needs ICU admission for treatment of pna and vasopressors for BP support Diagnosis/Problems Diagnosis/Problems (1) Septic shock Status: Resolved Assessment & Plan: Tachycardia, tachypnea, and leukocytosis with left sided infiltrate on CT chest Hypotensive on arrival with lactic acidosis Received 30cc/kg bolus and remianed hypotension Central line placed by Dr Perez Start on Pressors Continue IV abx Await cultures Resolution Date/Time: 10/03/18 @ 12:59 (2) Left lower lobe pneumonia Status: Acute Assessment & Plan: Continue Zosyn as above Dr Perez consulted given appearance of CT chest may need bronchoscopy Qualifiers: Pneumonia type: due to unspecified organism Qualified Codes: J18.1 - Lobar pneumonia, unspecified organism (3) Hypothyroidism Status: Chronic Assessment & Plan: Continue home supplement TSH WNL Qualifiers: Hypothyroidism type: postablative Qualified Codes: E89.0 - Postprocedural hypothyroidism Clinical Quality Measures DVT/VTE Risk/Contraindication: RFS Level Per Nursing on Admit: 1=Low/No VTE PPX HSILA PEDERSON MD Oct 01, 2018 08:29
--- NOTE | 2018-10-01 09:18 | Pulmonary Consultation ---
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 She has had a nonproductive cough and left sided pleuritic nonradiating CP. Upon ED admission she was found to have a LLL pneumonia and hypoxia. While in the ICU she received 30cc/kg of IVF per severe sepsis protocol however she became hypotensive. She was transferred to ICU with IV Abx. Allergies and Home Medications Allergies Uncoded Allergies: NEOSPORIN (Adverse Reaction, Unknown, 04/23/18) Home Medications Levothyroxine Sodium 75 Mcg Tablet, 75 MCG PO DAILY, (Reported) Past Ffdkptc-Quatir-Xklrdv Hx Past Med/Social Hx: Reviewed Nursing Past Med/Soc Hx Patient Social History Alcohol Use: Denies Use Recreational Drug Use: No Smoking Status: Never a Smoker 2nd Hand Smoke Exposure: No Recent Foreign Travel: No Contact w/Someone Who Travel: No Recent Infectious Disease Expo: No Recent Hopitalizations: No Immunizations Up To Date Tetanus Booster (TDap): Unknown PED Vaccines UTD: No Date of Influenza Vaccine: Jul 01, 2018 Seasonal Allergies Seasonal Allergies: No Past Medical History Surgeries: Yes (D&C, X 4) Section, Gallbladder, Thyroidectomy Respiratory: Yes (HX CHILDHOOD ASTHMA) Asthma Currently Using CPAP: No Currently Using BIPAP: No Cardiac: No Neurological: No : No Last Menstrual Period: Sep 07, 2018 Reproductive Disorders: No Female Reproductive Disorders: Denies Genitourinary: No Gastrointestinal: Yes Gall Bladder Disease Musculoskeletal: No Endocrine: Yes Hypothyroidsim HEENT: No Loss of Vision: Denies Hearing Impairment: Denies Cancer: No Psychosocial: No Integumentary: No Blood Disorders: No Family Medical History Reviewed and Corrections made Cardiovascular disease 19 MOTHER, Onset:50's - 60 Diabetes mellitus 19 FATHER, Onset:25's - 30 FH: prostate cancer 19 FATHER, Onset:50's - 60 Myocardial infarction 19 MOTHER, Onset:50's - 60 Heart Disease, Diabetes Sepsis Event Evaluation Height, Weight, BMI Height: 5'4.00" Weight: 144lbs. 0.0oz. 65.573638mp; 24.7 BMI Method:Stated Exam Exam Vital Signs Date Time Temp Pulse Resp B/P (MAP) Pulse Ox O2 Delivery O2 Flow Rate FiO2 10/01/18 07:53 97.9 Nasal Cannula 3.00 10/01/18 07:47 94 Nasal Cannula 3.00 10/01/18 07:00 112 26 82/58 (66) 95 Nasal Cannula 2.00 10/01/18 06:45 112 22 85/61 (69) 95 Nasal Cannula 2.00 10/01/18 06:40 Nasal Cannula 2.00 10/01/18 06:30 117 23 84/55 (65) 96 Nasal Cannula 2.00 10/01/18 06:17 122 10/01/18 06:15 98.2 121 26 85/61 (69) 97 Nasal Cannula 2.00 10/01/18 06:05 98.8 105 18 84/56 (65) 97 Nasal Cannula 2.00 10/01/18 01:41 98.6 139 18 105/74 (84) 94 Nasal Cannula 2.00 10/01/18 01:41 94 Nasal Cannula 2.00 I & O 10/01/18 07:00 Intake Total 3100 ml Balance 3100 ml Height & Weight Height: 5'4.00" Weight: 144lbs. 0.0oz. 65.910732rb; 24.7 BMI Method:Stated General Appearance: No Apparent Distress, WD/WN HEENT: PERRL/EOMI, Moist Mucous Membranes Neck: Non Tender, Supple Respiratory: No Respiratory Distress, Crackles (Left base) Cardiovascular: Regular Rate, Rhythm, No Murmur Capillary Refill: Less Than 3 Seconds Extremity: Normal Capillary Refill, No Calf Tenderness Neurologic/Psychiatric: Alert, Oriented x3, Normal Mood/Affect Skin: Normal Color, Warm/Dry Results Lab Laboratory Tests 10/01/18 02:40 Assessment/Plan Assessment/Plan LLL PNA with severe septic shock -Continue Zosyn -MRSA nose swab -Levophed -I placed central line upon arrival to ICU -CVP monitoring -Start Solucortef 100mg IV Q 8 -may need bronchoscopy Metabolic lactic acidosis -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
--- NOTE | 2018-10-01 09:44 | NUR ---
PATIENT STATES THE ONLY MEDICATION SHE IS CURRENTLY TAKING IS THE LEVOTHYROXINE. SHE DOES NOT TAKE ANYTHING OTC.
[2018-10-01] MEDS: NS IV 1000 ML 1,000 ML IV SCH ×5 (09:59→21:41)
[2018-10-01] MEDS: PIPERACILLIN SODIUM/TAZOBACTAM 4.5 GM in NS (IVPB) 100 ML IV SCH ×3 (10:13→23:49)
[2018-10-01] MEDS: HYDROCORTISONE 100 MG/2 ML (Solu-CORTEF) VIAL IV SCH ×2 (11:07→21:38)
[2018-10-01] MEDS: VASOPRESSIN INJECTION 20 UNIT in NS (IVPB) 100 ML IV SCH ×3 (11:35→23:41)
[2018-10-01] MEDS ORDERED: RT-ALBUTEROL/IPRATROPIUM 3 ML (DUONEB) VIAL INH PRN (12:45)
--- NOTE | 2018-10-01 14:31 | NUR ---
Pt is [employer]. declines sacraments but open to prayer. Women Specialist prayed w/ t and her parents.
[2018-10-01] MEDS: RT-ALBUTEROL/IPRATROPIUM 3 ML (DUONEB) VIAL INH SCH ×2 (15:21→21:43)
[2018-10-01] MEDS: IBUPROFEN 600 MG (MOTRIN) TAB PO PRN (19:00)
[2018-10-01] MEDS: ONDANSETRON 4 MG/2 ML (SDV) Z0FRAN IV PRN (23:47)
[2018-10-02] VITALS (17 sets, daily range): BP systolic 92–136; BP diastolic 64–86
[2018-10-02] MEDS: NS IV 1000 ML 1,000 ML IV SCH ×3 (01:22→16:55)
[2018-10-02] MEDS: RT-ALBUTEROL/IPRATROPIUM 3 ML (DUONEB) VIAL INH SCH ×3 (01:57→20:16)
[2018-10-02 03:26] LABS: BASOPHILS % (AUTO) 0 % (0-10); EOSINOPHILS % (AUTO) 0 % (0-10); HEMATOCRIT 32 % (35-52); HEMOGLOBIN 10.8 G/DL (11.5-16.0); LYMPHOCYTES # (AUTO) 0.4 X 10^3 (1.0-4.0); LYMPHOCYTES % (AUTO) 3 % (12-44); MEAN CORPUSCULAR HEMOGLOBIN 31 PG (25-34); MEAN CORPUSCULAR HGB CONC 34 G/DL (32-36); MEAN CORPUSCULAR VOLUME 91 FL (80-99); MEAN PLATELET VOLUME 9.9 FL (7.4-10.4); MONOCYTES # (AUTO) 0.4 X 10^3 (0.0-1.0); MONOCYTES % (AUTO) 2 % (0-12); NEUTROPHILS # (AUTO) 17.1 X 10^3 (1.8-7.8); NEUTROPHILS % (AUTO) 95 % (42-75); PLATELET COUNT 139 10^3/uL (130-400); RED BLOOD COUNT 3.53 10^6/uL (4.35-5.85); RED CELL DISTRIBUTION WIDTH 13.1 % (10.0-14.5); WHITE BLOOD COUNT 17.9 10^3/uL (4.3-11.0)
[2018-10-02 03:46] LABS: ALANINE AMINOTRANSFERASE 15 U/L (0-55); ALKALINE PHOSPHATASE 47 U/L (40-136); BILIRUBIN,TOTAL 0.9 MG/DL (0.1-1.0); BUN/CREATININE RATIO 11; CALCIUM 7.1 MG/DL (8.5-10.1); CARBON DIOXIDE 19 MMOL/L (21-32); CHLORIDE 111 MMOL/L (98-107); CREATININE SERUM 0.64 MG/DL (0.60-1.30); GFR ESTIMATED > 60; GLUCOSE 121 MG/DL (70-105); MAGNESIUM 1.5 MG/DL (1.8-2.4); PHOSPHORUS 1.5 MG/DL (2.3-4.7); POTASSIUM 3.4 MMOL/L (3.6-5.0); SODIUM 139 MMOL/L (135-145)
[2018-10-02] MEDS: VASOPRESSIN INJECTION 20 UNIT in NS (IVPB) 100 ML IV SCH (04:11)
[2018-10-02] MEDS ORDERED: KCL 20 MEQ TAB (K-DUR) PO ONE (04:15)
[2018-10-02] MEDS: LEVOTHYROXINE 75 MCG (LEVOTHROID) TABLET PO SCH (04:17)
[2018-10-02] MEDS: HYDROCORTISONE 100 MG/2 ML (Solu-CORTEF) VIAL IV SCH ×3 (04:17→22:37)
[2018-10-02] MEDS: MAGNESIUM 1 GM/100 ML IVPB 100 ML IV SCH ×2 (04:18→05:11)
--- NOTE | 2018-10-02 04:28 | Pulmonary Progress Note ---
Sepsis Event Evaluation Height, Weight, BMI Height: 5'4.00" Weight: 144lbs. 0.0oz. 65.321912lu; 24.7 BMI Method:Stated Focused Exam Lactate Level 10/01/18 02:40: Lactic Acid Level 3.51*H 10/01/18 05:17: Lactic Acid Level 2.07*H 10/01/18 08:55: Lactic Acid Level 1.19 Time of Focused Exam: 04:55 Exam Exam Vital Signs Date Time Temp Pulse Resp B/P (MAP) Pulse Ox O2 Delivery O2 Flow Rate FiO2 10/02/18 04:00 92 17 98/68 (78) 92 Room Air 10/02/18 03:11 98.0 10/02/18 03:10 93 Room Air 10/02/18 03:00 92 15 103/76 (85) 91 Room Air 10/02/18 02:00 69 12 102/74 (83) 99 Room Air 10/02/18 01:57 93 Room Air 10/02/18 01:00 87 10/02/18 01:00 87 21 101/69 (80) 93 Room Air 10/02/18 00:15 99 27 100/68 (79) 90 Room Air 10/01/18 23:50 93 Room Air 10/01/18 23:40 99.0 10/01/18 23:00 91 16 106/71 (83) 93 Room Air 10/01/18 22:00 88 30 107/78 (88) 92 Room Air 10/01/18 21:43 93 Room Air 10/01/18 21:00 75 28 110/70 (83) 94 Room Air 10/01/18 20:00 99.8 79 21 103/72 (82) 95 Room Air 10/01/18 20:00 95 Room Air 10/01/18 19:00 92 10/01/18 19:00 92 22 120/82 (95) 97 Room Air 10/01/18 18:00 80 27 112/77 (89) 97 Room Air 10/01/18 17:00 80 22 112/80 (91) 92 Room Air 10/01/18 16:00 95 Room Air 10/01/18 16:00 80 28 119/85 (96) 91 Room Air 10/01/18 16:00 98.6 10/01/18 15:21 92 Room Air 10/01/18 15:00 80 22 116/82 (93) 91 Room Air 10/01/18 14:00 96 18 133/87 (102) 90 Room Air 10/01/18 13:00 82 10/01/18 13:00 80 14 103/72 (82) 97 Nasal Cannula 3.00 10/01/18 12:37 103 97 32 10/01/18 12:00 89 16 97/66 (76) 96 Nasal Cannula 3.00 10/01/18 12:00 94 Nasal Cannula 3.00 10/01/18 11:00 103 19 89/66 (74) 97 Nasal Cannula 3.00 10/01/18 10:00 94 24 95/70 (78) 97 Nasal Cannula 3.00 10/01/18 09:00 109 21 86/61 (69) 97 Nasal Cannula 3.00 10/01/18 08:00 109 15 81/63 (69) 97 Nasal Cannula 3.00 10/01/18 07:53 97.9 Nasal Cannula 3.00 10/01/18 07:47 94 Nasal Cannula 3.00 10/01/18 07:00 112 26 82/58 (66) 95 Nasal Cannula 2.00 10/01/18 07:00 112 10/01/18 06:45 112 22 85/61 (69) 95 Nasal Cannula 2.00 10/01/18 06:40 Nasal Cannula 2.00 10/01/18 06:30 117 23 84/55 (65) 96 Nasal Cannula 2.00 10/01/18 06:17 122 10/01/18 06:15 98.2 121 26 85/61 (69) 97 Nasal Cannula 2.00 10/01/18 06:05 98.8 105 18 84/56 (65) 97 Nasal Cannula 2.00 I & O 10/02/18 07:00 Intake Total 5491 ml Output Total 1950 ml Balance 3541 ml Height & Weight Height: 5'4.00" Weight: 144lbs. 0.0oz. 65.896563zr; 24.7 BMI Method:Stated General Appearance: No Apparent Distress, WD/WN HEENT: PERRL/EOMI, Moist Mucous Membranes Neck: Non Tender, Supple Respiratory: No Respiratory Distress, Crackles (Left base) Cardiovascular: Regular Rate, Rhythm, No Murmur Capillary Refill: Less Than 3 Seconds Extremity: Normal Capillary Refill, No Calf Tenderness Neurologic/Psychiatric: Alert, Oriented x3, Normal Mood/Affect Skin: Normal Color, Warm/Dry Results Lab Laboratory Tests 10/01/18 02:40 10/02/18 03:20 Assessment/Plan Assessment/Plan LLL PNA with severe septic shock -Continue Zosyn -MRSA nose swab -Levophed -I placed central line upon arrival to ICU -CVP monitoring -Start Solucortef 100mg IV Q 8 -may need bronchoscopy Metabolic lactic acidosis -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
--- NOTE | 2018-10-02 05:49 | Pulmonary Progress Note ---
Subjective Time Seen by a Provider: 08:57 Subjective/Events-last exam PT is doing better. NO complications noted. Sepsis Event Evaluation Height, Weight, BMI Height: 5'4.00" Weight: 155lbs. 2.0oz. 70.312172cp; 24.7 BMI Method:Stated Focused Exam Lactate Level 10/01/18 02:40: Lactic Acid Level 3.51*H 10/01/18 05:17: Lactic Acid Level 2.07*H 10/01/18 08:55: Lactic Acid Level 1.19 Time of Focused Exam: 04:55 Exam Exam Vital Signs Date Time Temp Pulse Resp B/P (MAP) Pulse Ox O2 Delivery O2 Flow Rate FiO2 10/02/18 04:00 92 17 98/68 (78) 92 Room Air 10/02/18 03:11 98.0 10/02/18 03:10 93 Room Air 10/02/18 03:00 92 15 103/76 (85) 91 Room Air 10/02/18 02:00 69 12 102/74 (83) 99 Room Air 10/02/18 01:57 93 Room Air 10/02/18 01:00 87 10/02/18 01:00 87 21 101/69 (80) 93 Room Air 10/02/18 00:15 99 27 100/68 (79) 90 Room Air 10/01/18 23:50 93 Room Air 10/01/18 23:40 99.0 10/01/18 23:00 91 16 106/71 (83) 93 Room Air 10/01/18 22:00 88 30 107/78 (88) 92 Room Air 10/01/18 21:43 93 Room Air 10/01/18 21:00 75 28 110/70 (83) 94 Room Air 10/01/18 20:00 99.8 79 21 103/72 (82) 95 Room Air 10/01/18 20:00 95 Room Air 10/01/18 19:00 92 10/01/18 19:00 92 22 120/82 (95) 97 Room Air 10/01/18 18:00 80 27 112/77 (89) 97 Room Air 10/01/18 17:00 80 22 112/80 (91) 92 Room Air 10/01/18 16:00 95 Room Air 10/01/18 16:00 80 28 119/85 (96) 91 Room Air 10/01/18 16:00 98.6 10/01/18 15:21 92 Room Air 10/01/18 15:00 80 22 116/82 (93) 91 Room Air 10/01/18 14:00 96 18 133/87 (102) 90 Room Air 10/01/18 13:00 82 10/01/18 13:00 80 14 103/72 (82) 97 Nasal Cannula 3.00 10/01/18 12:37 103 97 32 10/01/18 12:00 89 16 97/66 (76) 96 Nasal Cannula 3.00 10/01/18 12:00 94 Nasal Cannula 3.00 10/01/18 11:00 103 19 89/66 (74) 97 Nasal Cannula 3.00 10/01/18 10:00 94 24 95/70 (78) 97 Nasal Cannula 3.00 10/01/18 09:00 109 21 86/61 (69) 97 Nasal Cannula 3.00 10/01/18 08:00 109 15 81/63 (69) 97 Nasal Cannula 3.00 10/01/18 07:53 97.9 Nasal Cannula 3.00 10/01/18 07:47 94 Nasal Cannula 3.00 10/01/18 07:00 112 26 82/58 (66) 95 Nasal Cannula 2.00 10/01/18 07:00 112 10/01/18 06:45 112 22 85/61 (69) 95 Nasal Cannula 2.00 10/01/18 06:40 Nasal Cannula 2.00 10/01/18 06:30 117 23 84/55 (65) 96 Nasal Cannula 2.00 10/01/18 06:17 122 10/01/18 06:15 98.2 121 26 85/61 (69) 97 Nasal Cannula 2.00 10/01/18 06:05 98.8 105 18 84/56 (65) 97 Nasal Cannula 2.00 I & O 10/02/18 07:00 Intake Total 5641 ml Output Total 2200 ml Balance 3441 ml Height & Weight Height: 5'4.00" Weight: 155lbs. 2.0oz. 70.107917tg; 24.7 BMI Method:Stated General Appearance: No Apparent Distress, WD/WN HEENT: PERRL/EOMI, Moist Mucous Membranes Neck: Non Tender, Supple Respiratory: No Respiratory Distress, Crackles (Left base) Cardiovascular: Regular Rate, Rhythm, No Murmur Capillary Refill: Less Than 3 Seconds Extremity: Normal Capillary Refill, No Calf Tenderness Neurologic/Psychiatric: Alert, Oriented x3, Normal Mood/Affect Skin: Normal Color, Warm/Dry Results Lab Laboratory Tests 10/01/18 02:40 10/02/18 03:20 Assessment/Plan Assessment/Plan LLL PNA with severe septic shock -Continue Zosyn -D/C vanco -CVP monitoring -D/c Solucortef 100mg IV Q 8 -CXR - repeat -may need bronchoscopy Metabolic lactic acidosis -Monitoring -repeat LA Hypotension-resolved cystic lung disease -PT will need full pulmonary out patient workup -Bronchoscopy inpatient vs out patient Hypothyroid -Synthroid SAPNA LATHAM DO Oct 02, 2018 05:49
[2018-10-02] MEDS ORDERED: MAGNESIUM 1 GM/100 ML IVPB 100 ML IV SCH (06:00)
[2018-10-02] MEDS ORDERED: KCL 20 MEQ TAB (K-DUR) PO SCH (06:00)
[2018-10-02] MEDS ORDERED: POTASSIUM CL 10MEQ/50ML IVPB 50 ML IV SCH (06:00)
[2018-10-02] MEDS ORDERED: VANCOMYCIN INJECTION 1,000 MG in NS (IVPB) 250 ML IV ONE (06:00)
[2018-10-02] MEDS ORDERED: NS (IVPB) 250 ML ONE (06:04)
[2018-10-02] MEDS ORDERED: VANCOMYCIN 1000 MG/VIAL ONE (06:04)
[2018-10-02] MEDS: PANTOPRAZOLE 40 MG (PROTONIX) VIAL IV SCH (06:14)
[2018-10-02] MEDS: ENOXAPARIN 40 MG/0.4 ML (LOVENOX) SYR SC SCH (06:14)
[2018-10-02] MEDS ORDERED: PHARMACY TO DOSE IV SCH (06:15)
--- NOTE | 2018-10-02 07:13 | Diagnostic Imaging Report ---
INDICATION: Septic shock. Portable chest 3:56 a.m. FINDINGS: Right IJ central line tip projects over the SVC. There is a consolidating infiltrate present in the left lower lung. There could be a small associated effusion. There is minimal right basilar infiltrate or atelectasis. IMPRESSION: Minimal right basilar infiltrate. Left basilar consolidation with questionable effusion. No change in appearance of chest compared to the previous day. Dictated by: Dictated on workstation # [id number]
[2018-10-02] MEDS: PIPERACILLIN SODIUM/TAZOBACTAM 4.5 GM in NS (IVPB) 100 ML IV SCH ×2 (08:05→16:54)
--- NOTE | 2018-10-02 08:40 | Progress Note-Hospitalist ---
Subjective HPI/CC On Admission Date Seen by Provider: Oct 02, 2018 Time Seen by Provider: 08:35 Pt is a 33yoCF with a PMH of hypothyroidism who presented to the ER due to difficulty breathing and shortness of breath. She states it started yesterday. She was very tried with decreased appetite all day yesterday and had a mild cough without sputum production. This progressed and she started to developed left sided chest pain with inspiration prompting her to seek evaluation in the ER. She was found to have LLL pneumonia with cystic appearances and possible cavitary lesion. Review by Dr Perez, pulm, and not felt to be consistent with TB. Unfortunately she developed profound hypotension in the ER despite fluid resuscitation and was admitted to the ICU for further management of septic shock. Subjective/Events-last exam Pt reports feeling better. Off pressors since last night. Focused Exam Lactate Level 10/01/18 05:17: Lactic Acid Level 2.07*H 10/01/18 08:55: Lactic Acid Level 1.19 10/02/18 06:20: Lactic Acid Level 1.57 Time of Focused Exam: 04:55 Lactic Acid Level Objective Exam Vital Signs Vital Signs Date Time Temp Pulse Resp B/P (MAP) Pulse Ox O2 Delivery O2 Flow Rate FiO2 10/03/18 14:13 95 Room Air 10/03/18 09:41 97.3 61 20 176/89 (118) 10/02/18 13:00 2.00 10/01/18 12:37 32 Capillary Refill : Less Than 3 Seconds General Appearance: No Apparent Distress, WD/WN Respiratory: Lungs Clear, No Respiratory Distress Cardiovascular: Regular Rate, Rhythm, No Murmur Gastrointestinal: Normal Bowel Sounds, Non Tender, Soft Extremity: No Calf Tenderness, No Pedal Edema Neurologic/Psychiatric: Alert, Oriented x3 Results/Procedures Lab Laboratory Tests 10/03/18 04:45 Patient resulted labs reviewed. Imaging: Reviewed Imaging Report Assessment/Plan Assessment and Plan Assess & Plan/Chief Complaint Septic Shock Diagnosis/Problems Diagnosis/Problems (1) Septic shock Status: Resolved Assessment & Plan: Resolving, now off pressors still on solu-cortef Continue Zosyn, vanc added this morning Blood cultures with NGTD transfer to the floor as cardiac stepdown Resolution Date/Time: 10/03/18 @ 12:59 (2) Left lower lobe pneumonia Status: Acute Assessment & Plan: Continue Zosyn as above Dr Perez consulted given appearance of CT chest may need bronchoscopy- could be done as an outpatient Qualifiers: Pneumonia type: due to unspecified organism Qualified Codes: J18.1 - Lobar pneumonia, unspecified organism (3) Hypothyroidism Status: Chronic Assessment & Plan: Continue home supplement TSH WNL Qualifiers: Hypothyroidism type: postablative Qualified Codes: E89.0 - Postprocedural hypothyroidism Clinical Quality Measures DVT/VTE Risk/Contraindication: RFS Level Per Nursing on Admit: 1=Low/No VTE PPX SHILA SILVA MD Oct 02, 2018 08:39
--- NOTE | 2018-10-02 14:00 | NUR ---
TRANSFERRED FROM ICU PER W/C. ALERT AND COOPERATIVE. AT BEDSIDE. RESP. REGULAR NON-PRODUCTIVE COUGH. RALES IN LLL LUNG AREA. DENIES SOA. ON R/A. NE=520/58 P=88 R-18 DENIES PAIN. TEMP=98 O2 SAT=98 % ON R/A. RIGHT IJ WITH NORMAL SALINE INFUSING AT 150 CC/HR. SITE CLEAR. LEFT F/A SITE CLEAR. UP TO BATHROOM, C/O OF LOOSE STOOL.
[2018-10-02] MEDS: VANCOMYCIN 750 MG/NS 250 ML IVPB IV SCH ×4 (15:21→22:37)
[2018-10-02] MEDS: LACTOBACILLUS ACIDOPHILUS (PROBIOTIC) CAPSULE PO SCH (17:11)
[2018-10-03] VITALS (8 sets, daily range): BP systolic 111–176; BP diastolic 71–89
[2018-10-03] MEDS: PIPERACILLIN SODIUM/TAZOBACTAM 4.5 GM in NS (IVPB) 100 ML IV SCH ×3 (00:25→17:06)
[2018-10-03] MEDS: NS IV 1000 ML 1,000 ML IV SCH (00:57)
[2018-10-03] MEDS: RT-ALBUTEROL/IPRATROPIUM 3 ML (DUONEB) VIAL INH SCH ×4 (02:34→19:31)
[2018-10-03] MEDS ORDERED: TROUGH ORDER-PHARMACY XX ONE (05:00)
[2018-10-03 05:09] LABS: BASOPHILS % (AUTO) 0 % (0-10); EOSINOPHILS % (AUTO) 0 % (0-10); HEMATOCRIT 30 % (35-52); HEMOGLOBIN 10.1 G/DL (11.5-16.0); LYMPHOCYTES # (AUTO) 0.5 X 10^3 (1.0-4.0); LYMPHOCYTES % (AUTO) 4 % (12-44); MEAN CORPUSCULAR HEMOGLOBIN 31 PG (25-34); MEAN CORPUSCULAR HGB CONC 34 G/DL (32-36); MEAN CORPUSCULAR VOLUME 91 FL (80-99); MEAN PLATELET VOLUME 10.2 FL (7.4-10.4); MONOCYTES # (AUTO) 0.2 X 10^3 (0.0-1.0); MONOCYTES % (AUTO) 2 % (0-12); NEUTROPHILS # (AUTO) 11.1 X 10^3 (1.8-7.8); NEUTROPHILS % (AUTO) 94 % (42-75); PLATELET COUNT 163 10^3/uL (130-400); RED BLOOD COUNT 3.28 10^6/uL (4.35-5.85); RED CELL DISTRIBUTION WIDTH 13.3 % (10.0-14.5); WHITE BLOOD COUNT 11.8 10^3/uL (4.3-11.0)
[2018-10-03 05:40] LABS: ALANINE AMINOTRANSFERASE 20 U/L (0-55); ALKALINE PHOSPHATASE 44 U/L (40-136); BILIRUBIN,TOTAL 0.3 MG/DL (0.1-1.0); BUN/CREATININE RATIO 10; CALCIUM 7.1 MG/DL (8.5-10.1); CARBON DIOXIDE 20 MMOL/L (21-32); CHLORIDE 112 MMOL/L (98-107); CREATININE SERUM 0.62 MG/DL (0.60-1.30); GFR ESTIMATED > 60; GLUCOSE 130 MG/DL (70-105); POTASSIUM 3.3 MMOL/L (3.6-5.0); SODIUM 141 MMOL/L (135-145); TOTAL PROTEIN 5.1 GM/DL (6.4-8.2)
[2018-10-03] MEDS: VANCOMYCIN 750 MG/NS 250 ML IVPB IV SCH ×2 (06:37)
[2018-10-03] MEDS: ENOXAPARIN 40 MG/0.4 ML (LOVENOX) SYR SC SCH (06:38)
[2018-10-03] MEDS: LACTOBACILLUS ACIDOPHILUS (PROBIOTIC) CAPSULE PO SCH ×3 (06:38→17:06)
[2018-10-03] MEDS: LEVOTHYROXINE 75 MCG (LEVOTHROID) TABLET PO SCH (06:38)
[2018-10-03] MEDS: HYDROCORTISONE 100 MG/2 ML (Solu-CORTEF) VIAL IV SCH (06:38)
--- NOTE | 2018-10-03 08:00 | NUR ---
DR. SILVA NOTIFIED OF PT. FEELING " PALPITATIONS " DURING THE NIGHT. TELEMETRY ORDERED.
[2018-10-03] MEDS: PANTOPRAZOLE 40 MG (PROTONIX) VIAL IV SCH (08:54)
[2018-10-03] MEDS: PANTOPRAZOLE 40 MG (PROTONIX) TAB PO SCH (08:55)
--- NOTE | 2018-10-03 10:31 | Diagnostic Imaging Report ---
EXAMINATION: Portable erect AP chest at 0914 hours. INDICATION: Respiratory distress. FINDINGS: As noted on the prior exam of 10/02/2018, there is a sizable area of pneumonia/atelectasis involving the left midlung and left lung base. I suspect that there is also fluid in the left lung base. These findings seem similar to the prior study. The alveolar/interstitial densities in the right lower lobe seen previously are also unchanged. The upper lungs remain clear. The heart is stable in size. The mediastinum is not widened. The osseous structures are intact. The central venous catheter on the right is unchanged in position. IMPRESSION: There is persistent involvement of both lungs by pneumonia/atelectasis and fluid, particularly in the left lung base. There has been no significant change when compared to the prior exam. A followup study would be recommended for continued evaluation. Dictated by: Dictated on workstation # [id number]
[2018-10-03] MEDS ORDERED: FUROSEMIDE 40 MG/4 ML INJ (LASIX) IVP NR (11:30)
--- NOTE | 2018-10-03 13:00 | Progress Note-Hospitalist ---
Subjective HPI/CC On Admission Date Seen by Provider: Oct 03, 2018 Time Seen by Provider: 12:57 Pt is a 33yoCF with a PMH of hypothyroidism who presented to the ER due to difficulty breathing and shortness of breath. She states it started yesterday. She was very tried with decreased appetite all day yesterday and had a mild cough without sputum production. This progressed and she started to developed left sided chest pain with inspiration prompting her to seek evaluation in the ER. She was found to have LLL pneumonia with cystic appearances and possible cavitary lesion. Review by Dr Perez, pulm, and not felt to be consistent with TB. Unfortunately she developed profound hypotension in the ER despite fluid resuscitation and was admitted to the ICU for further management of septic shock. Subjective/Events-last exam Pt reports feeling better today. Still pretty short of breath with ambulation. Focused Exam Lactate Level 10/01/18 05:17: Lactic Acid Level 2.07*H 10/01/18 08:55: Lactic Acid Level 1.19 10/02/18 06:20: Lactic Acid Level 1.57 Time of Focused Exam: 04:55 Objective Exam Vital Signs Vital Signs Date Time Temp Pulse Resp B/P (MAP) Pulse Ox O2 Delivery O2 Flow Rate FiO2 10/03/18 14:13 95 Room Air 10/03/18 09:41 97.3 61 20 176/89 (118) 10/02/18 13:00 2.00 10/01/18 12:37 32 Capillary Refill : Less Than 3 Seconds General Appearance: No Apparent Distress, WD/WN Respiratory: Lungs Clear, No Respiratory Distress Cardiovascular: Regular Rate, Rhythm, No Murmur Gastrointestinal: Normal Bowel Sounds, Non Tender, Soft Neurologic/Psychiatric: Alert, Oriented x3, Normal Mood/Affect Results/Procedures Lab Laboratory Tests 10/03/18 04:45 Patient resulted labs reviewed. Imaging: Reviewed Imaging Report Assessment/Plan Assessment and Plan Assess & Plan/Chief Complaint Septic Shock Diagnosis/Problems Diagnosis/Problems (1) Septic shock Status: Resolved Assessment & Plan: Off pressors and solu-cortef Continue Zosyn, Vanc DC-ed and MRSA screen negative Blood cultures with NGTD Resolution Date/Time: 10/03/18 @ 12:59 (2) Left lower lobe pneumonia Status: Acute Assessment & Plan: Continue Zosyn as above Dr Ana consulted given appearance of CT chest may need bronchoscopy- could be done as an outpatient MAT protocol Qualifiers: Pneumonia type: due to unspecified organism Qualified Codes: J18.1 - Lobar pneumonia, unspecified organism (3) Hypothyroidism Status: Chronic Assessment & Plan: Continue home supplement TSH WNL Qualifiers: Hypothyroidism type: postablative Qualified Codes: E89.0 - Postprocedural hypothyroidism (4) Hypokalemia Status: Acute Assessment & Plan: Replaced this AM Clinical Quality Measures DVT/VTE Risk/Contraindication: RFS Level Per Nursing on Admit: 1=Low/No VTE PPX SHILA SILVA MD Oct 03, 2018 13:00
[2018-10-03] MEDS ORDERED: KCL 20 MEQ TAB (K-DUR) PO NR (13:15)
[2018-10-04] MEDS: PIPERACILLIN SODIUM/TAZOBACTAM 4.5 GM in NS (IVPB) 100 ML IV SCH ×3 (00:12→15:56)
[2018-10-04] MEDS: RT-ALBUTEROL/IPRATROPIUM 3 ML (DUONEB) VIAL INH SCH ×4 (02:30→20:54)
[2018-10-04 04:41] VITALS: BP 135/77
[2018-10-04] MEDS: ENOXAPARIN 40 MG/0.4 ML (LOVENOX) SYR SC SCH (05:34)
[2018-10-04] MEDS: LACTOBACILLUS ACIDOPHILUS (PROBIOTIC) CAPSULE PO SCH ×3 (05:34→16:48)
[2018-10-04] MEDS: LEVOTHYROXINE 75 MCG (LEVOTHROID) TABLET PO SCH (05:34)
[2018-10-04 05:44] LABS: BASOPHILS % (AUTO) 0 % (0-10); EOSINOPHILS # (AUTO) 0.1 10^3/uL (0.0-0.3); EOSINOPHILS % (AUTO) 1 % (0-10); HEMATOCRIT 33 % (35-52); HEMOGLOBIN 11.2 G/DL (11.5-16.0); LYMPHOCYTES # (AUTO) 1.8 X 10^3 (1.0-4.0); LYMPHOCYTES % (AUTO) 17 % (12-44); MEAN CORPUSCULAR HEMOGLOBIN 30 PG (25-34); MEAN CORPUSCULAR HGB CONC 34 G/DL (32-36); MEAN CORPUSCULAR VOLUME 89 FL (80-99); MEAN PLATELET VOLUME 9.3 FL (7.4-10.4); MONOCYTES # (AUTO) 0.6 X 10^3 (0.0-1.0); MONOCYTES % (AUTO) 6 % (0-12); NEUTROPHILS # (AUTO) 7.9 X 10^3 (1.8-7.8); NEUTROPHILS % (AUTO) 76 % (42-75); PLATELET COUNT 195 10^3/uL (130-400); RED BLOOD COUNT 3.71 10^6/uL (4.35-5.85); RED CELL DISTRIBUTION WIDTH 12.8 % (10.0-14.5); WHITE BLOOD COUNT 10.4 10^3/uL (4.3-11.0)
[2018-10-04 06:05] LABS: ALANINE AMINOTRANSFERASE 25 U/L (0-55); ALBUMIN 3.1 GM/DL (3.2-4.5); ALKALINE PHOSPHATASE 46 U/L (40-136); BILIRUBIN,TOTAL 0.5 MG/DL (0.1-1.0); BUN/CREATININE RATIO 9; CALCIUM 7.7 MG/DL (8.5-10.1); CARBON DIOXIDE 28 MMOL/L (21-32); CHLORIDE 103 MMOL/L (98-107); CREATININE SERUM 0.69 MG/DL (0.60-1.30); GFR ESTIMATED > 60; GLUCOSE 89 MG/DL (70-105); POTASSIUM 2.6 MMOL/L (3.6-5.0); SODIUM 139 MMOL/L (135-145); TOTAL PROTEIN 5.6 GM/DL (6.4-8.2)
[2018-10-04 08:00] VITALS: BP 126/77
[2018-10-04] MEDS: PANTOPRAZOLE 40 MG (PROTONIX) TAB PO SCH (08:45)
--- NOTE | 2018-10-04 09:10 | Pulmonary Progress Note ---
Subjective Time Seen by a Provider: 09:10 Sepsis Event Evaluation Height, Weight, BMI Height: 5'4.00" Weight: 156lbs. 2.0oz. 70.517015gd; 24.7 BMI Method:Stated Focused Exam Lactate Level 10/02/18 06:20: Lactic Acid Level 1.57 Time of Focused Exam: 04:55 Exam Exam Vital Signs Date Time Temp Pulse Resp B/P (MAP) Pulse Ox O2 Delivery O2 Flow Rate FiO2 10/04/18 07:03 73 10/04/18 04:41 98.9 67 18 135/77 (96) 91 Room Air 10/04/18 02:30 93 Room Air 10/04/18 01:00 68 10/03/18 23:21 98.9 57 18 125/73 (90) 93 Room Air 10/03/18 20:00 98.9 59 18 126/72 (90) 95 Room Air 10/03/18 19:32 96 Room Air 10/03/18 19:28 Nasal Cannula 2.00 10/03/18 19:00 63 10/03/18 16:00 98.8 76 18 136/78 (97) 93 Room Air 10/03/18 14:13 95 Room Air 10/03/18 13:00 65 10/03/18 12:00 97.0 56 20 129/76 (93) 94 Room Air 10/03/18 09:41 97.3 61 20 176/89 (118) 93 Room Air I & O 10/04/18 07:00 Intake Total 3440 ml Output Total 6000 ml Balance -2560 ml Height & Weight Height: 5'4.00" Weight: 156lbs. 2.0oz. 70.293849xx; 24.7 BMI Method:Stated General Appearance: No Apparent Distress, WD/WN HEENT: PERRL/EOMI, Moist Mucous Membranes Neck: Non Tender, Supple Respiratory: Lungs Clear, No Respiratory Distress Cardiovascular: Regular Rate, Rhythm, No Murmur Capillary Refill: Less Than 3 Seconds Extremity: No Calf Tenderness, No Pedal Edema Neurologic/Psychiatric: Alert, Oriented x3, Normal Mood/Affect Skin: Normal Color, Warm/Dry Results Lab Laboratory Tests 10/03/18 04:45 10/04/18 05:35 Assessment/Plan Assessment/Plan LLL PNA with severe septic shock -Continue Zosyn -may need bronchoscopy -Urine strep and legionella ag are negative cystic lung disease -PT will need full pulmonary out patient workup -Bronchoscopy inpatient vs out patient Hypothyroid -Synthroid SAPNA LATHAM DO Oct 04, 2018 09:10
[2018-10-04] MEDS ORDERED: NS IV 500 ML 500 ML ONE (09:40)
[2018-10-04] MEDS ORDERED: NS IV 500 ML 500 ML IV NR (09:45)
[2018-10-04] MEDS: POTASSIUM CL 10MEQ/50ML IVPB 50 ML IV SCH ×4 (09:48→12:57)
--- NOTE | 2018-10-04 10:18 | Progress Note-Hospitalist ---
Subjective HPI/CC On Admission Date Seen by Provider: Oct 04, 2018 Time Seen by Provider: 10:15 Pt is a 33yoCF with a PMH of hypothyroidism who presented to the ER due to difficulty breathing and shortness of breath. She states it started yesterday. She was very tried with decreased appetite all day yesterday and had a mild cough without sputum production. This progressed and she started to developed left sided chest pain with inspiration prompting her to seek evaluation in the ER. She was found to have LLL pneumonia with cystic appearances and possible cavitary lesion. Review by Dr Perez, pulm, and not felt to be consistent with TB. Unfortunately she developed profound hypotension in the ER despite fluid resuscitation and was admitted to the ICU for further management of septic shock. Focused Exam Lactate Level 10/02/18 06:20: Lactic Acid Level 1.57 Time of Focused Exam: 04:55 Objective Exam Vital Signs Vital Signs Date Time Temp Pulse Resp B/P (MAP) Pulse Ox O2 Delivery O2 Flow Rate FiO2 10/04/18 08:00 98.8 70 20 126/77 (93) 91 Nasal Cannula 1.00 10/01/18 12:37 32 Capillary Refill : Less Than 3 Seconds General Appearance: No Apparent Distress, WD/WN Respiratory: Lungs Clear, No Respiratory Distress Cardiovascular: Regular Rate, Rhythm, No Murmur Gastrointestinal: Normal Bowel Sounds, Non Tender, Soft Neurologic/Psychiatric: Alert, Oriented x3 Results/Procedures Lab Laboratory Tests 10/04/18 05:35 Patient resulted labs reviewed. Imaging: Reviewed Imaging Report Assessment/Plan Assessment and Plan Assess & Plan/Chief Complaint Septic Shock Diagnosis/Problems Diagnosis/Problems (1) Left lower lobe pneumonia Status: Acute Assessment & Plan: Continue Zosyn as above Dr Perez consulted given appearance of CT chest may need bronchoscopy- could be done as an outpatient Will need to follow up with Dr Perez as an outpatient for repeat imaging and bronch MAT protocol Home oxygen qualification Qualifiers: Pneumonia type: due to unspecified organism Qualified Codes: J18.1 - Lobar pneumonia, unspecified organism (2) Septic shock Status: Resolved Assessment & Plan: Off pressors and solu-cortef Continue Zosyn Blood cultures with NGTD Resolution Date/Time: 10/03/18 @ 12:59 (3) Hypokalemia Status: Acute Assessment & Plan: Replace again this AM (4) Hypothyroidism Status: Chronic Assessment & Plan: Continue home supplement TSH WNL Qualifiers: Hypothyroidism type: postablative Qualified Codes: E89.0 - Postprocedural hypothyroidism Clinical Quality Measures DVT/VTE Risk/Contraindication: RFS Level Per Nursing on Admit: 1=Low/No VTE PPX SHILA SILVA MD Oct 04, 2018 10:18
[2018-10-04 11:08] VITALS: BP 126/77
[2018-10-04] MEDS: ONDANSETRON 4 MG/2 ML (SDV) Z0FRAN IV PRN (11:58)
[2018-10-04 12:00] VITALS: BP 124/80
[2018-10-04 16:04] VITALS: BP 119/77
[2018-10-04 19:53] VITALS: BP 108/65
[2018-10-04] MEDS: IBUPROFEN 600 MG (MOTRIN) TAB PO PRN (19:59)
[2018-10-05 00:10] VITALS: BP 123/82
[2018-10-05] MEDS: PIPERACILLIN SODIUM/TAZOBACTAM 4.5 GM in NS (IVPB) 100 ML IV SCH ×2 (00:30→08:43)
[2018-10-05] MEDS: RT-ALBUTEROL/IPRATROPIUM 3 ML (DUONEB) VIAL INH SCH ×2 (03:06→07:28)
[2018-10-05 04:06] VITALS: BP 118/74
[2018-10-05] MEDS: LACTOBACILLUS ACIDOPHILUS (PROBIOTIC) CAPSULE PO SCH (06:25)
[2018-10-05] MEDS: LEVOTHYROXINE 75 MCG (LEVOTHROID) TABLET PO SCH (06:26)
[2018-10-05] MEDS: ENOXAPARIN 40 MG/0.4 ML (LOVENOX) SYR SC SCH (06:30)
--- NOTE | 2018-10-05 06:30 | NUR ---
PATIENT HAS BLOODY URINE CONTACTED PEGGY HAY TO HOLD LOVENOX. AFTER CALL PATIENT CONFIRMED SHE HAS STARTED HER PERIOD.
[2018-10-05 06:42] LABS: BASOPHILS % (AUTO) 1 % (0-10); EOSINOPHILS # (AUTO) 0.1 10^3/uL (0.0-0.3); EOSINOPHILS % (AUTO) 2 % (0-10); HEMATOCRIT 37 % (35-52); HEMOGLOBIN 13.1 G/DL (11.5-16.0); LYMPHOCYTES # (AUTO) 1.5 X 10^3 (1.0-4.0); LYMPHOCYTES % (AUTO) 22 % (12-44); MEAN CORPUSCULAR HEMOGLOBIN 31 PG (25-34); MEAN CORPUSCULAR HGB CONC 35 G/DL (32-36); MEAN CORPUSCULAR VOLUME 88 FL (80-99); MEAN PLATELET VOLUME 9.3 FL (7.4-10.4); MONOCYTES # (AUTO) 0.6 X 10^3 (0.0-1.0); MONOCYTES % (AUTO) 9 % (0-12); NEUTROPHILS # (AUTO) 4.6 X 10^3 (1.8-7.8); NEUTROPHILS % (AUTO) 67 % (42-75); PLATELET COUNT 222 10^3/uL (130-400); RED BLOOD COUNT 4.23 10^6/uL (4.35-5.85); RED CELL DISTRIBUTION WIDTH 12.8 % (10.0-14.5); WHITE BLOOD COUNT 6.9 10^3/uL (4.3-11.0)
[2018-10-05 07:11] LABS: ALANINE AMINOTRANSFERASE 21 U/L (0-55); ALBUMIN 3.2 GM/DL (3.2-4.5); ALKALINE PHOSPHATASE 44 U/L (40-136); BILIRUBIN,TOTAL 0.4 MG/DL (0.1-1.0); BUN/CREATININE RATIO 10; CALCIUM 7.7 MG/DL (8.5-10.1); CARBON DIOXIDE 29 MMOL/L (21-32); CHLORIDE 103 MMOL/L (98-107); CREATININE SERUM 0.78 MG/DL (0.60-1.30); GFR ESTIMATED > 60; GLUCOSE 89 MG/DL (70-105); SODIUM 141 MMOL/L (135-145); TOTAL PROTEIN 5.4 GM/DL (6.4-8.2)
[2018-10-05 08:00] VITALS: BP 126/80
--- NOTE | 2018-10-05 08:11 | NUR ---
HOME OXYGEN STUDY PT DROPPED DOWN TO 86% WHILE WALKING ON ROOM AIR, PT AT REST IN ROOM SPO2 RETURNED TO 92%. PT PLACED ON 2 LPM NASAL OXYGEN AND SPO2 REMAINED ABOVE 90% WHILE WALKING, PT WILL REQUIRE 2LPM NASAL CANNULA WHILE EXERTING HER SELF.
[2018-10-05] MEDS: PANTOPRAZOLE 40 MG (PROTONIX) TAB PO SCH (08:43)
[2018-10-05] MEDS ORDERED: AMOX-358 PO (08:53)
[2018-10-05] MEDS ORDERED: LACT1CAP62 PO (08:53)
--- NOTE | 2018-10-05 08:56 | Discharge Inst-Simple/Standard ---
Discharge Inst-Standard Discharge Medications New, Converted or Re-Newed RX: Transmitted to Pharmacy Patient Instructions/Follow Up Plan of Care/Instructions/FU: Please continue to take your medications as written. Please follow up with your PCP and with Dr Perez to follow up this hospital stay. Activity as Tolerated: Yes Discharge Diet: No Restrictions Return to The Hospital For: Shortness of breath, chest pain, fever, confusion, if you feel you are getting worse. SHILA SILVA MD Oct 05, 2018 08:56
[2018-10-05] MEDS ORDERED: KCL 20 MEQ TAB (K-DUR) PO NR (09:00)
--- NOTE | 2018-10-05 09:19 | Discharge Summary-Hospitalist ---
Diagnosis/Chief Complaint Date of Admission Oct 01, 2018 at 05:52 Date of Discharge Discharge Date: Oct 05, 2018 Admission Diagnosis Septic Shock Discharge Diagnosis (1) Left lower lobe pneumonia Status: Acute Assessment & Plan: Treated with Zosyn while inpatient Dr Perez consulted given appearance of CT chest may need bronchoscopy- could be done as an outpatient Will need to follow up with Dr Perez as an outpatient for repeat imaging and bronch MAT protocol Home oxygen qualification reveals 2lpm need on exertion (2) Septic shock Status: Resolved Assessment & Plan: Off pressors and solu-cortef Zosyn while inpatient Blood cultures with NGTD Urine strep pneumo and legionella negative (3) Hypokalemia Status: Acute Assessment & Plan: Replace again this AM (4) Hypothyroidism Status: Chronic Assessment & Plan: Continue home supplement TSH WNL Discharge Summary Procedures/Consulations Dr Perez- Pulm Discharge Physical Exam Allergies: Uncoded Allergies: NEOSPORIN (Adverse Reaction, Unknown, 04/23/18) Vitals & I&Os Vital Signs Date Time Temp Pulse Resp B/P (MAP) Pulse Ox O2 Delivery O2 Flow Rate FiO2 10/05/18 07:00 83 10/05/18 04:06 98.1 16 118/74 (89) 93 Room Air 10/04/18 20:00 1.00 10/04/18 11:08 24 General Appearance: No Apparent Distress, WD/WN Respiratory: Lungs Clear, No Respiratory Distress Cardiovascular: Regular Rate, Rhythm, No Murmur Gastrointestinal: Normal Bowel Sounds, Soft Neurologic/Psychiatric: Alert, Oriented x3 Hospital Course Pt presented to the ER for evaluation of chest pain and was found to have a LLL pneumonia and subsequently developed septic shock. She was admitted to the ICU and supported with vasopressors, antibiotics, and high volume fluid resuscitation. She responded well and was titrate off vasopressors and transitioned to med/surg floor. Her CT chest revealed cystic appearing lungs and Dr Perez was consulted to assist with pulmonary management. She is to follow up with him for outpatient bronchoscopy and repeat imaging. On day of discharge she was requesting DC home. She underwent oxygen testing which revealed a 2lpm exertional needed. This was ordered. She was discharged home in stable condition to follow up with her PCP and Dr Perez. Labs (last 24 hrs) Laboratory Tests 10/05/18 06:29: White Blood Count 6.9, Red Blood Count 4.23L, Hemoglobin 13.1, Hematocrit 37, Mean Corpuscular Volume 88, Mean Corpuscular Hemoglobin 31, Mean Corpuscular Hemoglobin Concent 35, Red Cell Distribution Width 12.8, Platelet Count 222, Mean Platelet Volume 9.3, Neutrophils (%) (Auto) 67, Lymphocytes (%) (Auto) 22, Monocytes (%) (Auto) 9, Eosinophils (%) (Auto) 2, Basophils (%) (Auto) 1, Neutrophils # (Auto) 4.6, Lymphocytes # (Auto) 1.5, Monocytes # (Auto) 0.6, Eosinophils # (Auto) 0.1, Basophils # (Auto) 0.0, Sodium Level 141, Potassium Level 3.0L, Chloride Level 103, Carbon Dioxide Level 29, Anion Gap 9, Blood Urea Nitrogen 8, Creatinine 0.78, Estimat Glomerular Filtration Rate > 60, BUN/ Creatinine Ratio 10, Glucose Level 89, Calcium Level 7.7L, Corrected Calcium 8.3L, Total Bilirubin 0.4, Aspartate Amino Transf (AST/SGOT) 15, Alanine Aminotransferase (ALT/SGPT) 21, Alkaline Phosphatase 44, Total Protein 5.4L, Albumin 3.2 Microbiology 10/01/18 Blood Culture - Preliminary, Resulted No growth 10/01/18 MRSA Screen - Final, Complete MRSA not isolated 10/01/18 Urine Culture - Final, Complete NO GROWTH Patient resulted labs reviewed. Pending Labs Laboratory Tests 10/05/18 06:29: White Blood Count 6.9, Red Blood Count 4.23, Hemoglobin 13.1, Hematocrit 37, Mean Corpuscular Volume 88, Mean Corpuscular Hemoglobin 31, Mean Corpuscular Hemoglobin Concent 35, Red Cell Distribution Width 12.8, Platelet Count 222, Mean Platelet Volume 9.3, Neutrophils (%) (Auto) 67, Lymphocytes (%) (Auto) 22, Monocytes (%) (Auto) 9, Eosinophils (%) (Auto) 2, Basophils (%) (Auto) 1, Neutrophils # (Auto) 4.6, Lymphocytes # (Auto) 1.5, Monocytes # (Auto) 0.6, Eosinophils # (Auto) 0.1, Basophils # (Auto) 0.0, Sodium Level 141, Potassium Level 3.0, Chloride Level 103, Carbon Dioxide Level 29, Anion Gap 9, Blood Urea Nitrogen 8, Creatinine 0.78, Estimat Glomerular Filtration Rate > 60, BUN/ Creatinine Ratio 10, Glucose Level 89, Calcium Level 7.7, Corrected Calcium 8.3 , Total Bilirubin 0.4, Aspartate Amino Transf (AST/SGOT) 15, Alanine Aminotransferase (ALT/SGPT) 21, Alkaline Phosphatase 44, Total Protein 5.4, Albumin 3.2 Imaging: Reviewed Imaging Report Discussion & Recommendations Discharge Planning: >30 minutes discharge planning Discharge Home Medications: Active Scripts Active Probiotic (Lactobacillus Acidophilus) 1 Each Capsule 1 Each PO AC Augmentin 875-125 Tablet (Amoxicillin/Potassium Clav) 1 Each Tablet 1 Each PO BID Reported Levothyroxine Sodium 75 Mcg Tablet 75 Mcg PO DAILY Instructions to patient/family Please see electronic discharge instructions given to patient. Clinical Quality Measures DVT/VTE Risk/Contraindication: RFS Level Per Nursing on Admit: 1=Low/No VTE PPX Copy Copies To 1: SAPNA PEREZ DO; SABA BANKS MD Problem Qualifiers (1) Left lower lobe pneumonia: Pneumonia type: due to unspecified organism Qualified Codes: J18.1 - Lobar pneumonia, unspecified organism (2) Hypothyroidism: Hypothyroidism type: postablative Qualified Codes: E89.0 - Postprocedural hypothyroidism SHILA SILVA MD Oct 05, 2018 09:19
[2018-10-05 12:27] VITALS: BP 126/80
== END 2018-10-05 11:55 | disposition home or self-care (01) | DRG 871 ==
LOC: EDUNIT# 01:09 → ER 01:14 → ICU 05:52 → 4TH 10-02 13:55
PROVIDERS: ADMIT Family Medicine; ATTEND Family Medicine
PROC: 02HV33Z Insertion of Infusion Device into Superior Vena Cava, Percutaneous Approach (ICD-10-PCS; principal; 2018-10-01)
DX: A41.9 Sepsis, unspecified organism (principal); R65.21 Severe sepsis with septic shock; J18.1 Lobar pneumonia, unspecified organism; E87.2 Acidosis; E89.0 Postprocedural hypothyroidism; J45.909 Unspecified asthma, uncomplicated; J98.4 Other disorders of lung; E87.6 Hypokalemia
CPT/HCPCS: 36415; 71045; 71046; 71260; 80053; 80202; 81000; 83605; 83735; 84100; 84439; 84443; 84703; 85007; 85025; 85027; 85610; 85730; 87040; 87081; 87088; 87449; 87899; 93041; 94640; 94760; 94761

== ENCOUNTER → 2018-10-29 | Outpatient (CLI) | payer BC ==
[~2018-10-29] MED LIST changes: +AMOX-358 PO; +LACT1CAP62 PO; +RT-ALBUTEROL SULF 2.5 MG/3 ML PRE-MIX VIAL INH ONE; +RT-ALBUTEROL SULF 2.5 MG/3 ML PRE-MIX VIAL ONE
== END ==
LOC: RT 13:37
PROVIDERS: ATTEND Nurse Practitioner Family
DX: J45.909 Unspecified asthma, uncomplicated (principal); J18.9 Pneumonia, unspecified organism; Z86.19 Personal history of other infectious and parasitic diseases
CPT/HCPCS: 94060; 94726; 94729

== ENCOUNTER → 2018-11-13 | Outpatient (CLI) | payer BC ==
[~2018-11-13] MED LIST changes: -RT-ALBUTEROL SULF 2.5 MG/3 ML PRE-MIX VIAL INH ONE; -RT-ALBUTEROL SULF 2.5 MG/3 ML PRE-MIX VIAL ONE
--- NOTE | 2018-11-13 16:43 | Diagnostic Imaging Report ---
EXAMINATION: PA and lateral chest at 10:56 a.m. INDICATION: Pneumonia. FINDINGS: The appearance of the chest has improved since the prior exam of 10/03/2018. The previous study did show bibasilar pneumonia/atelectasis and fluid particularly involving the left lung base. On this study, both lungs are much better aerated. There still appears to be a small amount of residual atelectasis/infiltrate in each lower lobe, however. A follow-up exam will be recommended for continued evaluation. The lung apices remain clear. The heart size is stable. The mediastinum is not widened. The osseous structures are intact. The central venous catheter on the right seen previously has been removed. IMPRESSION: The appearance of the chest has improved considerably since the prior exam as both lung bases are much better aerated. There is only a small amount of residual pneumonia/atelectasis still present. Clinical follow-up is recommended. Dictated by: Dictated on workstation # [id number]
== END ==
LOC: RAD 10:32
PROVIDERS: ATTEND Nurse Practitioner Family
DX: J45.909 Unspecified asthma, uncomplicated (principal); J18.9 Pneumonia, unspecified organism; Z86.19 Personal history of other infectious and parasitic diseases
CPT/HCPCS: 71046

== ENCOUNTER → 2018-11-18 | Outpatient (CLI) | payer BC ==
[~2018-11-18] MED LIST changes: +IOHEXOL 350 MG/ML 150 ML (OMNIPAQUE 350) VIAL IV ONE; +NS 100 ML (IVPB) BAG IV ONE; +RECEIVED CONTRAST 20 ML VIAL IV SCH
--- NOTE | 2018-11-18 16:50 | Diagnostic Imaging Report ---
PROCEDURE: CT chest with contrast only. TECHNIQUE: Multiple contiguous axial images were obtained through the chest after administration of intravenous contrast. INDICATION: Pneumonia six weeks ago. Study is performed for followup. Correlation is made with prior CT from 10/01/2018. No axillary lymphadenopathy is identified. No definite mediastinal or hilar lymphadenopathy is detected. No pericardial or pleural fluid is identified. Previously noted fibrotic changes in both lungs is again seen. There has been significant improvement in the airspace consolidation involving the left upper lobe and left lower lobe noted on prior exam consistent with resolving pneumonia. No residual infiltrate is seen. There is some scarring in the left lower lobe. There is a tiny left apical spiculated density measuring 6 mm which appears stable when compared with CT dating back to 04/23/2018. Upper abdomen is unremarkable. IMPRESSION: Near complete resolution of left upper and left lower lobe consolidated pneumonia when compared with CT chest from 10/01/2018. Dictated by: Dictated on workstation # [id number]
== END ==
LOC: RAD 12:18
PROVIDERS: ATTEND Nurse Practitioner Family
DX: J18.1 Lobar pneumonia, unspecified organism (principal); J44.9 Chronic obstructive pulmonary disease, unspecified
CPT/HCPCS: 71260

== ENCOUNTER → 2018-11-19 | Outpatient (CLI) | payer BC ==
[~2018-11-19] MED LIST changes: +FLUT1BLS IH; -IOHEXOL 350 MG/ML 150 ML (OMNIPAQUE 350) VIAL IV ONE; -NS 100 ML (IVPB) BAG IV ONE; -RECEIVED CONTRAST 20 ML VIAL IV SCH; +pro-air
== END | disposition home or self-care (01) ==
LOC: PREOP 05:55
PROVIDERS: ATTEND Internal Medicine Critical Care Medicine
DX: Z01.818 Encounter for other preprocedural examination (principal)

== ENCOUNTER → 2018-11-20 | Day surgery (SDC) | payer BC ==
[~2018-11-20] VITALS: Ht 162.6 cm; Wt 70.8 kg
[~2018-11-20] MED LIST changes: +LIDOCAINE PF 1% 2 ML VIAL (OR ONLY) IJ ONE; +LIDOCAINE PF 2% 5 ML (XYLOCAINE) VIAL INJ ONE; +LIDOCAINE UROJET 2% GEL 10 ML PKG TOP ONE; +MIDAZOLAM 2 MG/2 ML (VERSED) VIAL IVP ONE; +NS IV 500 ML 500 ML IV PRN; +NS IV 500 ML 500 ML ONE; +fentaNYL INJECTION 100 MCG/2 ML AMP IVP ONE
--- NOTE | 2018-11-20 08:20 | Pulmonary Procedures ---
Pulmonary Procedures Date of Procedure Date of Service: Nov 20, 2018 Bronch Bronchoscopy with RML bronchoalveolar lavage (BAL), transbronchial washes and, brushes. Preop DX cystic lung disease Postop DX: same. No endobronchial mass Complications: none After informed consent obtained and formal time out pt was sedated using Fentanyl and Versed. Bronchoscope was advanced through the nare and vocal cords. 1% lidocaine was used to anesthetize vocal cords, epiglottis, nicole, and left/right main stem bronchus. An anatomical tour was undertaken down to the segmental bronchi bilaterally. No endobronchial lesions noted. From the RML a bronchoalveolar lavage (BAL), transbronchial washes and, brushes were obtained. Pt tolerated procedure well. No complications noted. Stat CXR is pending. SAPNA LATHAM DO Nov 20, 2018 08:20
[2018-11-20 08:35] VITALS: BP 127/67
[2018-11-20 09:05] VITALS: BP 117/77
[2018-11-20 09:16] VITALS: BP 117/77
[2018-11-20 09:23] VITALS: BP 117/77
--- NOTE | 2018-11-20 09:34 | Diagnostic Imaging Report ---
INDICATION: Post bronchoscopy. TECHNIQUE: Single view chest 8:29 AM. CORRELATION STUDY: 11/13/2018 FINDINGS: Heart size and mediastinum are stable. Scattered somewhat linear parenchymal density about the right lung base lesser degree the left lung base are present. Findings relatively stable. No new areas of consolidation or infiltrate. No pneumothorax or significant effusion. IMPRESSION: 1. Generally stable chest post bronchoscopy. Dictated by: Dictated on workstation # [id number]
--- NOTE | 2018-11-20 13:07 | Diagnostic Imaging Report ---
INDICATION: Pneumonia.. TECHNIQUE: Single intraprocedural images right chest CORRELATION STUDY: None FINDINGS: Intraprocedure fluoroscopy utilized by Dr. Perez. No radiologist present. Single image over the right lower chest demonstrates bronchoscope to be present over the right mid to lower chest. Fluoroscopy Time: 15 seconds IMPRESSION: 1. Fluoroscopy utilized for assistance during bronchoscopy. Dictated by: Dictated on workstation # [id number]
[2018-11-20 15:00] LABS: BODY FLUID APPEARENCE SLT CLDY; BODY FLUID COLOR COLORLESS; BODY FLUID SOURCE OTHER; LYMPHOCYTES,BODY FLUID 10 %
[2018-11-20 15:01] LABS: BF OTHER CELLS 90 %
== END | disposition home or self-care (01) ==
LOC: ENDO 07:07
PROVIDERS: ATTEND Internal Medicine Critical Care Medicine
DX: J98.4 Other disorders of lung (principal); J45.909 Unspecified asthma, uncomplicated; R09.02 Hypoxemia; R94.2 Abnormal results of pulmonary function studies; Z87.01 Personal history of pneumonia (recurrent); Z79.899 Other long term (current) drug therapy
CPT/HCPCS: 71045; 84703; 87015; 87070; 87101; 87116; 87205; 87206; 89051; 94640

== ENCOUNTER → 2018-12-03 | Outpatient (CLI) | payer BC ==
[~2018-12-03] MED LIST changes: -LIDOCAINE PF 1% 2 ML VIAL (OR ONLY) IJ ONE; -LIDOCAINE PF 2% 5 ML (XYLOCAINE) VIAL INJ ONE; -LIDOCAINE UROJET 2% GEL 10 ML PKG TOP ONE; -MIDAZOLAM 2 MG/2 ML (VERSED) VIAL IVP ONE; -NS IV 500 ML 500 ML IV PRN; -NS IV 500 ML 500 ML ONE; -fentaNYL INJECTION 100 MCG/2 ML AMP IVP ONE
--- NOTE | 2018-12-03 09:53 | Diagnostic Imaging Report ---
PROCEDURE: CT chest without contrast. TECHNIQUE: Multiple contiguous axial images were obtained through the chest without the use of intravenous contrast. Supine and prone imaging was performed. High-resolution protocol was utilized. Auto Exposure Controls were utilized during the CT exam to meet ALARA standards for radiation dose reduction. INDICATION: Abnormal pulmonary function tests. Correlation made with CT chest from 11/18/2018. FINDINGS: There are linear parenchymal densities throughout both lungs as suggestive of fibrotic scarring. This is similar to CT of 2 weeks earlier. There appears to be some mild bronchiectatic changes in the upper and lower lobes bilaterally. No air cyst formation is identified. No groundglass opacities are seen. Slightly irregular densities in the apices are noted bilaterally which may represent some scarring. Peribronchial interstitium is unremarkable. IMPRESSION: Fibrotic changes bilaterally as well as some mild bronchiectatic changes. No significant infiltrates or groundglass opacities are seen. No air cyst formation is identified. Dictated by: Dictated on workstation # [id number]
== END ==
LOC: RAD 08:33
PROVIDERS: ATTEND Nurse Practitioner Family
DX: J44.9 Chronic obstructive pulmonary disease, unspecified (principal); J84.10 Pulmonary fibrosis, unspecified
CPT/HCPCS: 36415; 71250; 82784; 86038

== ENCOUNTER → 2018-12-11 | Outpatient (CLI) | payer BC | LOC: LAB 12:24 | PROVIDERS: ATTEND Internal Medicine Critical Care Medicine | DX: R91.8 Other nonspecific abnormal finding of lung field (principal); J44.9 Chronic obstructive pulmonary disease, unspecified; R06.00 Dyspnea, unspecified; J84.9 Interstitial pulmonary disease, unspecified; R94.2 Abnormal results of pulmonary function studies | CPT/HCPCS: 36415; 82164; 85652; 86141; 86430 ==

== ENCOUNTER → 2019-05-28 | Outpatient (CLI) | payer BC ==
[~2019-05-28] MED LIST changes: +RT-ALBUTEROL SULF 2.5 MG/3 ML PRE-MIX VIAL INH ONE; +RT-ALBUTEROL SULF 2.5 MG/3 ML PRE-MIX VIAL ONE
== END ==
LOC: RT 12:48
PROVIDERS: ATTEND Internal Medicine Pulmonary Disease
DX: J84.9 Interstitial pulmonary disease, unspecified (principal)
CPT/HCPCS: 94640

== ENCOUNTER 2019-06-04 01:22 | Emergency (ER) | payer BC ==
[~2019-06-04] VITALS: Ht 160 cm; Wt 68.8 kg
[~2019-06-04 01:22] MED LIST changes: -RT-ALBUTEROL SULF 2.5 MG/3 ML PRE-MIX VIAL INH ONE; -RT-ALBUTEROL SULF 2.5 MG/3 ML PRE-MIX VIAL ONE
[2019-06-04] MEDS ORDERED: AZITHROMYCIN 250 MG TAB (ZITHROMAX) PO ONE (02:30)
[2019-06-04] MEDS ORDERED: LIDOCAINE 1% INJ 20 ML 20 ML VIAL INJ ONE (02:45)
[2019-06-04] MEDS ORDERED: cefTRIAXone 1,000 MG/2.86 ml vial (IM ONLY) IM ONE (02:45)
[2019-06-04] MEDS ORDERED: AZIT250T12 PO (02:52)
--- NOTE | 2019-06-04 02:52 | ED General ---
General Chief Complaint: Cough/Cold/Flu Symptoms Stated Complaint: POSS PNEUMONIA,LEFT CHEST PAIN,SOB Nursing Triage Note: PT AMBULATES TO ROOM SEVEN, C/O EXERTIONAL SOB FOR THE LAST TWO WEEKS THAT WORSENED TONIGHT. PT VERBALIZES AN EXTENSIVE HX OF ASTHMA AND RESPIRATORY ISSUES. Nursing Sepsis Screen: Possible Severe Sepsis Risk Source of Information: Patient Exam Limitations: No Limitations History of Present Illness Date Seen by Provider: Jun 04, 2019 Time Seen by Provider: 01:32 Initial Comments This 34-year-old woman presents to the emergency room with shortness of breath, fever, and pain in the left chest with inspiration. It feels similar to prior episodes of pneumonia. She has a history of interstitial lung disease and sees Dr. Perez. She is also presently approximately [address] MIGUEL for her . Temperature is 101.2 on assessment. She denies any lower extremity symptoms. Symptoms just started within the last 24 hours. Allergies and Home Medications Allergies Uncoded Allergies: NEOSPORIN (Adverse Reaction, Unknown, 04/23/18) Home Medications Azithromycin 250 Mg Tablet, 250 MG PO DAILY Prescribed by: SP MCRAE on 06/04/19 0252 Levothyroxine Sodium 75 Mcg Tablet, 75 MCG PO DAILY, (Reported) Patient Home Medication List Home Medication List Reviewed: Yes Review of Systems Review of Systems Constitutional: no symptoms reported EENTM: no symptoms reported Respiratory: see HPI Cardiovascular: no symptoms reported Gastrointestinal: no symptoms reported Genitourinary: no symptoms reported : Yes Musculoskeletal: no symptoms reported Skin: no symptoms reported Psychiatric/Neurological: No Symptoms Reported Hematologic/Lymphatic: No Symptoms Reported Immunological/Allergic: no symptoms reported Past Pnosdra-Evonus-Gesaqh Hx Past Med/Social Hx: Reviewed Nursing Past Med/Soc Hx Patient Social History Alcohol Use: Denies Use Recreational Drug Use: No Smoking Status: Never a Smoker 2nd Hand Smoke Exposure: No Recent Foreign Travel: No Contact w/Someone Who Travel: No Recent Infectious Disease Expo: No Recent Hopitalizations: No Physical Abuse: No Sexual Abuse: No Mistreated: No Fear: No Immunizations Up To Date Tetanus Booster (TDap): Unknown PED Vaccines UTD: No Date of Influenza Vaccine: Jul 01, 2018 Seasonal Allergies Seasonal Allergies: No Past Medical History Surgeries: Yes (D&C, X 4) Section, Gallbladder, Thyroidectomy Respiratory: Yes (HX CHILDHOOD ASTHMA. BROCHIAL DYSPLASIA or interstitial lung disease) Asthma Currently Using CPAP: No Currently Using BIPAP: No Cardiac: No Neurological: No : Yes Last Menstrual Period: Feb 14, 2019 Reproductive Disorders: No Female Reproductive Disorders: Denies Genitourinary: No Gastrointestinal: Yes Gall Bladder Disease Musculoskeletal: No Endocrine: Yes Hypothyroidsim HEENT: No Loss of Vision: Denies Hearing Impairment: Denies Cancer: No Psychosocial: No Integumentary: No Blood Disorders: No Family Medical History Cardiovascular disease 19 MOTHER, Onset:50 - Diabetes mellitus 19 FATHER, Onset:25 - FH: prostate cancer 19 FATHER, Onset: Myocardial infarction 19 MOTHER, Onset: Heart Disease, Diabetes Physical Exam Vital Signs Vital Signs - First Documented 06/04/19 01:31 Temp 38.4 Pulse 116 Resp 22 B/P (MAP) 135/92 (106) Pulse Ox 96 O2 Delivery Room Air Capillary Refill : Less Than 3 Seconds Height, Weight, BMI Height: 5'4.00" Weight: 156lbs. 2.0oz. 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 Skin: Normal Color, Warm/Dry Progress/Results/Core Measures Suspected Sepsis Recent Fever Within 48 Hours: Yes Infection Criteria Present: Suspected New Infection New/Unexplained Altered Menta: No Sepsis Screen: Possible Severe Sepsis Risk SIRS Temperature: Pulse: 116 Respiratory Rate: 22 Blood Pressure 135 /92 Mean: 106 Results/Orders Micro Results Microbiology 06/04/19 Influenza Types A,B Antigen (NURY) - Final, Complete My Orders Orders - SP DIXON MD Influenza A And B Antigens (06/04/19 01:42) Azithromycin Tablet (Zithromax Tablet) (06/04/19 02:30) Ceftriaxone For Im Use (Rocephin For Im (06/04/19 02:45) Lidocaine 1% Inj 20 Ml (Xylocaine 1% Inj (06/04/19 02:45) Medications Given in ED Current Medications Medications Dose Ordered Sig/Suzanna Route Start Time Stop Time Status Last Admin Dose Admin Azithromycin 500 mg ONCE ONCE PO 06/04/19 02:30 06/04/19 02:31 DC 06/04/19 02:50 500 MG Ceftriaxone Sodium 1,000 mg ONCE ONCE IM 06/04/19 02:45 06/04/19 02:46 DC 06/04/19 02:51 1,000 MG Lidocaine HCl 2.1 ml ONCE ONCE INJ 06/04/19 02:45 06/04/19 02:46 DC 06/04/19 02:51 2.1 ML Vital Signs/I&O 06/04/19 06/04/19 01:31 01:31 Temp 38.4 Pulse 116 Resp 22 B/P (MAP) 135/92 (106) Pulse Ox 96 O2 Delivery Room Air Room Air Capillary Refill : Less Than 3 Seconds Blood Pressure Mean: 106 Progress Note : Progress Note We discussed workup including chest x-ray. Patient declines chest x-ray given the . She would like empiric treatment for pneumonia since this feels very similar to her prior pneumonia episode. She was empirically treated with Rocephin IM of and oral azithromycin. Departure Impression Primary Impression: Pleuritic chest pain Additional Impression: Fever Qualified Codes: R50.9 - Fever, unspecified Disposition: 01 HOME, SELF-CARE Condition: Improved Departure-Patient Inst. Decision time for Depature: 02:50 Referrals: JM MCINTYRE MD (PCP) Primary Care Physician JEFF JOYA (Family) Primary Care Physician Patient Instructions: Pneumonia, Adult (DC) Add. Discharge Instructions: Complete your antibiotic as prescribed. Take your next dose either late tonight or early tomorrow morning. You may take Tylenol (acetaminophen) up to 1000 mg every 6 hours as needed for pain or fever. Drink lots of clear liquids. Use your inhaler as previously prescribed. Return to the emergency room if you have worsening symptoms. If not improving as expected, please contact your primary care provider. All discharge instructions reviewed with patient and/or family. Voiced understanding. Scripts Azithromycin (Azithromycin) 250 Mg Tablet 250 MG PO DAILY, #4 TAB Prov: SP DIXON MD 06/04/19 Copy Copies To 1: GEORGI MIGUEL DO Copies To 2: SAPNA PEREZ JOSHUA T MD Jun 04, 2019 02:52
[2019-06-04 02:57] VITALS: BP 112/77
== END 2019-06-04 02:58 | disposition home or self-care (01) ==
LOC: EDUNIT# 01:22 → ER 01:26
DX: O99.89 Other specified diseases and conditions complicating pregnancy, childbirth and the puerperium (principal); R09.1 Pleurisy; O26.891 Other specified pregnancy related conditions, first trimester; R50.9 Fever, unspecified; O99.511 Diseases of the respiratory system complicating pregnancy, first trimester; J45.909 Unspecified asthma, uncomplicated; O99.281 Endocrine, nutritional and metabolic diseases complicating pregnancy, first trimester; E03.9 Hypothyroidism, unspecified; Z3A.13 13 weeks gestation of pregnancy; Z88.1 Allergy status to other antibiotic agents; Z82.49 Family history of ischemic heart disease and other diseases of the circulatory system
CPT/HCPCS: 87804

== ENCOUNTER → 2019-07-15 | Outpatient (CLI) | payer BC ==
[~2019-07-15] MED LIST changes: +AZIT250T12 PO
--- NOTE | 2019-07-15 16:42 | Diagnostic Imaging Report ---
INDICATION: , anatomic survey. TECHNIQUE: Multiple real-time grayscale images were obtained over the gravid uterus. COMPARISON: None during this / FINDINGS: A single live intrauterine fetus is seen measuring 20 weeks 1 day in size by composite measurements. The fetus is in cephalic presentation. Placenta is anterior with no evidence of previa. Amniotic fluid is qualitatively normal. heart beat is 130 BPM. Cervical length is 3.8 cm. survey showed normal-appearing kidneys and bladder. Normal-appearing stomach. No intracranial structures are noted. Four-chamber heart view and three-vessel cord and cord insertion were normal. spine appeared unremarkable. Maternal adnexa could not be visualized. Biometrical measurements are as follows: Biparietal 4.6 cm, age 20 weeks 0 days. Head circumference 17.58 cm, age 20 weeks 1 days. Abdominal circumference 14.79 cm, age 20 weeks 1 days. Femur length 3.20 cm, age 20 weeks 0 days. Sonographic estimate age: 20 weeks 1 days. Sonographic estimated date of delivery: 12/01/2019. Estimated Weight: 327 gm (+/- 48 gm). LMP percentile: 72%. heart rate: 130 beats per minute. number: 1 of 1. IMPRESSION: Single live intrauterine fetus measuring 20 weeks 1 day in size. There were no detectable abnormalities. Dictated by: Dictated on workstation # [id number]
== END ==
LOC: RAD 15:38
PROVIDERS: ATTEND Nurse Practitioner Women's Health
DX: Z36.89 Encounter for other specified antenatal screening (principal); Z3A.20 20 weeks gestation of pregnancy
CPT/HCPCS: 76805

== ENCOUNTER → 2019-10-29 | Outpatient (CLI) | payer BC, MEDICAID | LOC: CARD 14:18 | PROVIDERS: ATTEND Internal Medicine Pulmonary Disease | DX: J44.9 Chronic obstructive pulmonary disease, unspecified (principal) | CPT/HCPCS: 93306 ==

== ENCOUNTER 2019-11-23 09:35 | Outpatient (CLI) | payer MEDICAID ==
[~2019-11-23] VITALS: Ht 161 cm; Wt 71.7 kg
[2019-11-23] MEDS ORDERED: FLUT200B IH (10:04)
[2019-11-23] MEDS ORDERED: TIOT18CA2 IH (10:04)
[2019-11-23] MEDS ORDERED: PREN-8 PO (10:04)
[2019-11-23] MEDS ORDERED: CETI10TA21 PO (10:04)
[2019-11-23 10:07] VITALS: BP 115/70
== END 2019-11-23 10:18 | disposition home or self-care (01) ==
LOC: PREOP 09:35
PROVIDERS: ATTEND Obstetrics & Gynecology
DX: Z01.818 Encounter for other preprocedural examination (principal)
CPT/HCPCS: 87081

== ENCOUNTER 2019-11-30 06:03 | Inpatient (IN) | payer MEDICAID ==
[2019-11-30] VITALS (11 sets, daily range): BP systolic 115–135; BP diastolic 59–111
[~2019-11-30] VITALS: Ht 160 cm; Wt 72.3 kg
[~2019-11-30 06:03] MED LIST changes: +CETI10TA21 PO; +CITRIC ACID/SOB CIT (BICITRA) 30 ML UDC ONE; +FAMOTIDINE 20MG/2ML IV (PEPCID) ONE; +FLUT200B IH; +LACTATED RINGERS 1,000 ML IV ONE; +METOCLOPRAMIDE INJ 10 MG/2 ML (REGLAN) ONE; +PREN-8 PO; +TIOT18CA2 IH
[2019-11-30] MEDS ORDERED: LACTATED RINGERS 1,000 ML IV SCH (06:05)
--- NOTE | 2019-11-30 06:09 | NUR ---
ALBERT GARCES presented to unit via ambulation from home, accompanied by , for PREVIOUS SECTION. ALBERT GARCES weighed, gowned, voided, and to bed. EFHM and TOCO applied, VS taken. ALBERT GARCES oriented to bed controls, call light, TV, heat, and A/C controls.
[2019-11-30] MEDS ORDERED: FAMOTIDINE 20MG/2ML IV (PEPCID) IV ONE (06:15)
[2019-11-30] MEDS ORDERED: ceFAZolin 2 GM IV Premixed 50 ML IV ONE (06:15)
[2019-11-30] MEDS ORDERED: METOCLOPRAMIDE INJ 10 MG/2 ML (REGLAN) IV ONE (06:15)
[2019-11-30] MEDS ORDERED: CITRIC ACID/SOB CIT (BICITRA) 30 ML UDC PO ONE (06:15)
--- OUTSIDE RECORDS SUMMARY | 2019-11-30 06:28 | XMS REPORT | Continuity of Care Document ---
Author Organization Unknown Address Unknown Phone Unavailable Allergies Active Description Code Type Severity Reaction Onset Reported/Identified Relationship to Patient Clinical Status Yes NEOSPORIN NEOSPORIN Unknown N/A 04/23/2018 Yes bacitracin [id number] Drug Allerg y Unknown Rash 11/23/2019 Yes neomycin [id number] Drug Allergy Unknown Rash 11/23/2019 Yes polymyxin B [id number] Drug Aller gy Unknown Rash 11/23/2019 Medications There is no data. Problems Date Dx Coded Attending Type Code Diagnosis Diagnosed By 04/23/2018 Ot J45.909 UN SPECIFIED ASTHMA, UNCOMPLICATED 04/23/2018 Ot K80.50 LAINA CULUS OF BILE DUCT W/O CHOLANGITIS OR 04/23/2018 Ot R07.2 PREC ORDIAL PAIN 04/23/2018 Ot Z88.1 ENRIQUETA RGY STATUS TO OTHER ANTIBIOTIC AGENT 06/20/2018 HUGO RHOAEDS, RYLIE B Ot Z01.8 18 ENCOUNTER FOR OTHER PREPROCEDURAL EXAMIN 06/23/2018 HUGO RHOADES RYLIE B Ot K81.1 CHRONIC CHOLECYSTITIS 06/23/2018 HUGO RHOADES RYLIE B Ot Z11.2 ENCOUNTER FOR SCREENING FOR OTHER BACTER 06/25/2018 HUGO RHOADES RYLIE B Ot K81.1 CHRONIC CHOLECYSTITIS 06/25/2018 RAMIRO ARIAS DOIC B Ot Z11.2 ENCOUNTER FOR SCREENING FOR OTHER BACTER 06/26/2018 HUGO RHOADES, RYLIE B Ot Z01.8 18 ENCOUNTER FOR OTHER PREPROCEDURAL EXAMIN 06/26/2018 HUGO RHOADES RYLIE B Ot K81.1 CHRONIC CHOLECYSTITIS 06/26/2018 RAMIRO ARIAS DOIC B Ot Z11.2 ENCOUNTER FOR SCREENING FOR OTHER BACTER 10/05/2018 SHIRA UREÑA, SHILA Luna Ot A41. 9 SEPSIS, UNSPECIFIED ORGANISM 10/05/2018 SHIRA UREÑA, SHILA Luna Ot E87. 2 ACIDOSIS 10/05/2018 SHILA SILVA MD Ot E87. 6 HYPOKALEMIA 10/05/2018 SHIRA UREÑA, SHILA Luna Ot E89. 0 POSTPROCEDURAL HYPOTHYROIDISM 10/05/2018 SHIRA UREÑA, SHILA Luna Ot J18. 1 LOBAR PNEUMONIA, UNSPECIFIED ORGANISM 10/05/2018 SHIRA UREÑA, SHILA Luna Ot J45.909 UNSPECIFIED ASTHMA, UNCOMPLICATED 10/05/2018 SHIRA UREÑA, SHILA Luna Ot J98. 4 OTHER DISORDERS OF LUNG 10/05/2018 SHIRA UREÑA, SHILA Luna Ot R65. 21 SEVERE SEPSIS WITH SEPTIC SHOCK 10/30/2018 ROSHAN TRONCOSOINE Herbert INSOLE TAPER Ot J18.9 PNEUMONIA, UNSPECIFIED ORGANISM 10/30/2018 ROSHAN TRONCOSOINE Herbert INSOLE TAPER Ot J45.909 UNSPECIFIED ASTHMA, UNCOMPLICATED 10/30/2018 ROSHAN TRONCOSOINE Herbert INSOLE TAPER Ot Z86.19 PERSONAL HISTORY OF OTHER INFECTIOUS AND 11/14/2018 BETTY TRONCOSO INSOLE TAPER Ot J18.9 PNEUMONIA, UNSPECIFIED ORGANISM 11/14/2018 BETTY TRONCOSO APRN Ot J45.909 UNSPECIFIED ASTHMA, UNCOMPLICATED 11/14/2018 BETTY TRONCOSO INSOLE TAPER Ot Z86.19 PERSONAL HISTORY OF OTHER INFECTIOUS AND 11/18/2018 BETTY TRONCOSO INSOLE TAPER Ot J18.1 LOBAR PNEUMONIA, UNSPECIFIED ORGANISM 11/18/2018 BETTY TRONCOSO APRN Ot J44.9 CHRONIC OBSTRUCTIVE PULMONARY DISEASE, U 11/24/2018 SAPNA LATHAM DO Ot J45.909 UNSPECIFIED ASTHMA, UNCOMPLICATED 11/24/2018 SAPNA LATHAM DO Ot J98. 4 OTHER DISORDERS OF LUNG 11/24/2018 SAPNA LATHAM DO Ot R09. 02 HYPOXEMIA 11/24/2018 SAPNA LATHAM DO Ot R94. 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 01 PERSONAL HISTORY OF PNEUMONIA (RECURRENT 11/25/2018 BETTY TRONCOSO APRN Ot J18.1 LOBAR PNEUMONIA, UNSPECIFIED ORGANISM 11/25/2018 BETTY TRONCOSO APRN Ot J44.9 CHRONIC OBSTRUCTIVE PULMONARY DISEASE, U 12/01/2018 BETTY TRONCOSO APRN Ot J18.9 PNEUMONIA, UNSPECIFIED ORGANISM 12/01/2018 BETTY TRONCOSO APRN Ot J45.909 UNSPECIFIED ASTHMA, UNCOMPLICATED 12/01/2018 BETTY TRONCOSO APRN Ot Z86.19 PERSONAL HISTORY OF OTHER INFECTIOUS AND 12/03/2018 BETTY TRONCOSO APRN Ot J18.1 LOBAR PNEUMONIA, UNSPECIFIED ORGANISM 12/03/2018 BETTY TRONCOSO APRN Ot J44.9 CHRONIC OBSTRUCTIVE PULMONARY DISEASE, U 12/03/2018 SAPNA LATHAM DO Ot J45.909 UNSPECIFIED ASTHMA, UNCOMPLICATED 12/03/2018 SAPNA LATHAM DO Ot J98. 4 OTHER DISORDERS OF LUNG 12/03/2018 SAPNA LATHAM DO Ot R09. 02 HYPOXEMIA 12/03/2018 SAPNA LATHAM DO Ot R94. 2 ABNORMAL RESULTS OF PULMONARY FUNCTION S 12/03/2018 SAPNA LATHAM DO Ot Z79.899 OTHER LONGTERM (CURRENT) DRUG THERAPY 12/03/2018 SAPNA LATHAM DO Ot Z87. 01 PERSONAL HISTORY OF PNEUMONIA (RECURRENT 12/05/2018 BETTY TRONCOSO APRN Ot J44.9 CHRONIC OBSTRUCTIVE PULMONARY DISEASE, U 12/05/2018 BETTY RTONCOSO APRN Ot J84.10 PULMONARY FIBROSIS, UNSPECIFIED 12/11/2018 SAPNA LATHAM DO Ot J45.909 UNSPECIFIED ASTHMA, UNCOMPLICATED 12/11/2018 SAPNA LATHAM DO Ot J98. 4 OTHER DISORDERS OF LUNG 12/11/2018 SAPNA LATHAM DO Ot R09. 02 HYPOXEMIA 12/11/2018 SAPNA LATHAM DO Ot R94. 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 01 PERSONAL HISTORY OF PNEUMONIA (RECURRENT 12/11/2018 BETTY TRONCOSO APRN Ot J44.9 CHRONIC OBSTRUCTIVE PULMONARY DISEASE, U 12/11/2018 BETTY TRONCOSO APRN Ot J84.10 PULMONARY FIBROSIS, UNSPECIFIED 12/15/2018 SAPNA LATHAM DO Ot J44. 9 CHRONIC OBSTRUCTIVE PULMONARY DISEASE, U 12/15/2018 SAPNA LATHAM DO Ot J84. 9 INTERSTITIAL PULMONARY DISEASE, UNSPECIF 12/15/2018 YEISON DOSAPNA M Ot R06. 00 DYSPNEA, UNSPECIFIED 12/15/2018 SAPNA LATHAM DO M Ot R91. 8 OTHER NONSPECIFIC ABNORMAL FINDING OF MEKHI 12/15/2018 SAPNA LATHAM DO M Ot R94. 2 ABNORMAL RESULTS OF PULMONARY FUNCTION S 12/17/2018 SAPNA LATHAM DO M Ot J44. 9 CHRONIC OBSTRUCTIVE PULMONARY DISEASE, U 12/17/2018 SAPNA LATHAM DO M Ot J84. 9 INTERSTITIAL PULMONARY DISEASE, UNSPECIF 12/17/2018 SAPNA LATHAM DO M Ot R06. 00 DYSPNEA, UNSPECIFIED 12/17/2018 YEISON DOSAPNA M Ot R91. 8 OTHER NONSPECIFIC ABNORMAL FINDING OF MEKHI 12/17/2018 SAPNA LATHAM DO M Ot R94. 2 ABNORMAL RESULTS OF PULMONARY FUNCTION S 12/26/2018 SAPNA LATHAM DO M Ot J44. 9 CHRONIC OBSTRUCTIVE PULMONARY DISEASE, U 12/26/2018 SAPNA LATHAM DO Ot J84. 9 INTERSTITIAL PULMONARY DISEASE, UNSPECIF 12/26/2018 SAPNA LATHAM DO M Ot R06. 00 DYSPNEA, UNSPECIFIED 12/26/2018 SAPNA LATHAM DO M Ot R91. 8 OTHER NONSPECIFIC ABNORMAL FINDING OF MEKHI 12/26/2018 SAPNA LATHAM DO M Ot R94. 2 ABNORMAL RESULTS OF PULMONARY FUNCTION S 06/04/2019 ZACK UREÑA, SP Lockhart Ot E03.9 HYPOTHYROIDISM, UNSPECIFIED 06/04/2019 ZACK UREÑA, SP Lockhart Ot J45.909 UNSPECIFIED ASTHMA, UNCOMPLICATED 06/04/2019 ZACK UREÑA, SP Lockhart Ot O26.891 OTH RELATED CONDITIONS, FIRST 06/04/2019 SP DIXON MD Ot O99.281 ENDO, NUTRITIONAL AND METAB DISEASES COM 06/04/2019 SP DIXON MD Ot O99.511 DISEASES OF THE RESP SYS COMP , 06/04/2019 SP DIXON MD Ot O99.89 OTH DISEASES AND CONDITIONS COMPL PREG/C 06/04/2019 SP DIXON MD Ot R09.1 PLEURISY 06/04/2019 SP DIXON MD Ot R50.9 FEVER, UNSPECIFIED 06/04/2019 SP DIXON MD Ot Z3A.13 13 WEEKS GESTATION OF 06/04/2019 SP DIXON MD Ot Z82.49 FAMILY HX OF ISCHEM HEART DIS AND OTH DI 06/04/2019 SP DIXON MD Ot Z88.1 ALLERGY STATUS TO OTHER ANTIBIOTIC AGENT 06/08/2019 SP DIXON MD Ot E03.9 HYPOTHYROIDISM, UNSPECIFIED 06/08/2019 SP DIXON MD Ot J45.909 UNSPECIFIED ASTHMA, UNCOMPLICATED 06/08/2019 SP DIXON MD Ot O26.891 OTH RELATED CONDITIONS, FIRST 06/08/2019 SP DIXON MD Ot O99.281 ENDO, NUTRITIONAL AND METAB DISEASES COM 06/08/2019 SP DIXON MD Ot O99.511 DISEASES OF THE RESP SYS COMP , 06/08/2019 SP DIXON MD Ot O99.89 OTH DISEASES AND CONDITIONS COMPL PREG/C 06/08/2019 SP DIXON MD Ot R09.1 PLEURISY 06/08/2019 SP DIXON MD Ot R50.9 FEVER, UNSPECIFIED 06/08/2019 SP DIXON MD Ot Z3A.13 13 WEEKS GESTATION OF 06/08/2019 SP DIXON MD Ot Z82.49 FAMILY HX OF ISCHEM HEART DIS AND OTH DI 06/08/2019 SP DIXON MD Ot Z88.1 ALLERGY STATUS TO OTHER ANTIBIOTIC AGENT 06/11/2019 BUBBA UREÑA, KIRSTIE Dailey Ot J84.9 INTERSTITIAL PULMONARY DISEASE, UNSPECIF 07/20/2019 DARWIN MORENO INSOLE TAPER Ot Z36.89 ENCOUNTER FOR OTHER SPECIFIED 07/20/2019 DARWIN MORENO INSOLE TAPER Ot Z3A.20 20 WEEKS GESTATION OF 07/31/2019 DARWIN MORENO INSOLE TAPER Ot Z36.89 ENCOUNTER FOR OTHER SPECIFIED 07/31/2019 DARWIN MORENO INSOLE TAPER Ot Z3A.20 20 WEEKS GESTATION OF 10/30/2019 KIRSTIE MAC MD S Ot J44.9 CHRONIC OBSTRUCTIVE PULMONARY DISEASE, U 11/23/2019 GEORGI MIGUEL DO S Ot Z01.818 ENCOUNTER FOR OTHER PREPROCEDURAL EXAMIN Procedures Code Description Performed By Per mine On IN SERTION OF INFUSION DEV INTO SUP VENA 10/01/2018 Results Test Result Range Complete blood count (CBC) with automate d white blood cell (WBC) differential - 04/23/18 00:35 Blood leukocytes automated count (number/volume) 4.2 10*3/uL 4.3-11.0 Blood erythrocytes automated count (number/volume) 4.53 10*6/uL 4.35-5.85 Venous blood hemoglobin measurement (mass/volume) 12.7 g/dL 11.5-16.0 Blood hematocrit (volume fraction) 38 % 35-52 Automated erythrocyte mean corpuscular volume 84 [ foz_us] 80-99 Automated erythrocyte mean corpuscular h emoglobin (mass per erythrocyte) 28 pg 25-34 Automated erythrocyte mean corpuscular h emoglobin concentration measurement (mass/volume) 33 g/dL 32-36 Automated erythrocyte distribution width ratio 18. 8 % 10.0- 14.5 Automated blood platelet count (count/volume) 212 10*3/uL 130-400 Automated blood platelet mean volume measurement 9.2 [foz_us] 7.4-10.4 Automated blood neutrophils/100 leukocytes 35 % 42-75 Automated blood lymphocytes/100 leukocytes 54 % 12-44 Blood monocytes/100 leukocytes 10 % 0-12 Automated blood eosinophils/100 leukocytes 1 % 0-10 Automated blood basophils/100 leukocytes 1 % 0-10 Blood neutrophils automated count (number/volume) 1.5 10*3 1.8-7.8 Blood lymphocytes automated count (number/volume) 2.3 10*3 1.0-4.0 Blood monocytes automated count (number/volume) 0. 4 10*3 0.0-1.0 Automated eosinophil count 0.1 10*3/uL 0 .0-0.3 Automated blood basophil count (count/volume) 0.0 10*3/uL 0.0-0.1 Serum or plasma choriogonadotropin (preg ofelia test) detection - 04/23/18 00:35 Serum or plasma choriogonadotropin ( test) de tection NEGATIVE NEGATIVE PT panel in platelet poor plasma by coag ulation assay - 04/23/18 00:35 Prothrombin time (PT) in platelet poor plasma by coagu lation assay 12.8 s 12.2-14.7 INR in platelet poor plasma or blood by coagulation as say 1.0 0.8-1.4 Activated partial thromboplastin time (a PTT) in platelet poor plasma bycoagulation assay - 04/23/18 00:35 Activated partial thromboplastin time (a PTT) in platelet poor plasma bycoagulation assay 28 s 24-35 Comprehensive metabolic panel - 04/23/18 00:35 Serum or plasma sodium measurement (moles/volume) 141 mmol/L 135-145 Serum or plasma potassium measurement (moles/volume) 3.5 mmol/L 3.6-5.0 Serum or plasma chloride measurement (moles/volume) 101 mmol/L 98-107 Carbon dioxide 27 mmol/L 21-32 Serum or plasma anion gap determination (moles/volume) 13 mmol/L 5-14 Serum or plasma urea nitrogen measurement (mass/volume ) 12 mg/dL 7-18 Serum or plasma creatinine measurement (mass/volume) 1.10 mg/dL 0.60-1.30 Serum or plasma urea nitrogen/creatinine mass ratio 11 NRG Serum or plasma creatinine measurement w ith calculation of estimated glomerular filtration rate 57 NRG Serum or plasma glucose measurement (mass/volume) 97 mg/dL 70-105 Serum or plasma calcium measurement (mass/volume) 9.6 mg/dL 8.5-10.1 Serum or plasma total bilirubin measurement (mass/volu me) 0.4 mg/dL 0.1-1.0 Serum or plasma alkaline phosphatase salvador surement (enzymatic activity/volume) 62 U/L 40-136 Serum or plasma aspartate aminotransfera se measurement (enzymatic activity/volume) 54 U/L 5-34 Serum or plasma alanine aminotransferase measurement (enzymatic activity/volume) 53 U/L 0-55 Serum or plasma protein measurement (mass/volume) 7.2 g/dL 6.4-8.2 Serum or plasma albumin measurement (mass/volume) 4.6 g/dL 3.2-4.5 Magnesium - 04/23/18 00:35 Magnesium 1.9 mg/dL 1.8-2.4 Serum or plasma creatine kinase measurem ent (enzymatic activity/volume) - 04/23/18 00:35 Serum or plasma creatine kinase measurem ent (enzymatic activity/volume) 45 U/L 29-168 Serum or plasma creatine kinase MB measu rement (enzymatic activity/volume) - 04/23/18 00:35 Serum or plasma creatine kinase MB measu rement (enzymatic activity/volume) 0.7 ng/mL <6.6 Serum or plasma troponin i.cardiac measu rement (mass/volume) - 04/23/18 00:35 Serum or plasma troponin i.cardiac measurement (mass/v olume) < ng/mL <0.30 Myoglobin, serum - 04/23/18 00:35 Myoglobin, serum 19.6 ng/mL 10.0-92.0 Serum or plasma amylase measurement (enz ymatic activity/volume) - 04/23/18 00:35 Serum or plasma amylase measurement (enzymatic activit y/volume) 61 U/L 25-125 Serum or plasma lithium measurement (mol es/volume) - 04/23/18 00:35 BNP level 13.6 pg/mL <100.0 Lipase - 04/23/18 00:35 Lipase 40 U/L 8-78 Urine beta human chorionic gonadotropin (hCG) measurement - 06/23/18 07:25 Urine beta human chorionic gonadotropin (hCG) measurem ent NEGATIVE NEGATIVE Methicillin resistant Staphylococcus aur eus (MRSA) screening culture - 06/23/18 07:25 Methicillin resistant Staphylococcus aureus (MRSA) scr eening culture NEG NRG Complete blood count (CBC) with automate d white blood cell (WBC) differential - 06/23/18 07:40 Blood leukocytes automated count (number/volume) 4.4 10*3/uL 4.3-11.0 Blood erythrocytes automated count (number/volume) 4.17 10*6/uL 4.35-5.85 Venous blood hemoglobin measurement (mass/volume) 13.1 g/dL 11.5-16.0 Blood hematocrit (volume fraction) 37 % 35-52 Automated erythrocyte mean corpuscular volume 89 [ foz_us] 80-99 Automated erythrocyte mean corpuscular h emoglobin (mass per erythrocyte) 31 pg 25-34 Automated erythrocyte mean corpuscular h emoglobin concentration measurement (mass/volume) 35 g/dL 32-36 Automated erythrocyte distribution width ratio 12. 5 % 10.0- 14.5 Automated blood platelet count (count/volume) 185 10*3/uL 130-400 Automated blood platelet mean volume measurement 9.6 [foz_us] 7.4-10.4 Automated blood neutrophils/100 leukocytes 48 % 42-75 Automated blood lymphocytes/100 leukocytes 41 % 12-44 Blood monocytes/100 leukocytes 9 % 0-12 Automated blood eosinophils/100 leukocytes 1 % 0-10 Automated blood basophils/100 leukocytes 1 % 0-10 Blood neutrophils automated count (number/volume) 2.1 10*3 1.8-7.8 Blood lymphocytes automated count (number/volume) 1.8 10*3 1.0-4.0 Blood monocytes automated count (number/volume) 0. 4 10*3 0.0-1.0 Automated eosinophil count 0.1 10*3/uL 0 .0-0.3 Automated blood basophil count (count/volume) 0.0 10*3/uL 0.0-0.1 CULTURE, URINE - 08/30/18 16:16 CULTURE, URINE, ROUTINE SEE NOTE NRG Complete blood count (CBC) with automate d white blood cell (WBC) differential - 10/01/18 02:40 Blood leukocytes automated count (number/volume) 20.1 10*3/uL 4.3-11.0 Blood erythrocytes automated count (number/volume) 4.42 10*6/uL 4.35-5.85 Venous blood hemoglobin measurement (mass/volume) 13.7 g/dL 11.5-16.0 Blood hematocrit (volume fraction) 39 % 35-52 Automated erythrocyte mean corpuscular volume 89 [ foz_us] 80-99 Automated erythrocyte mean corpuscular h emoglobin (mass per erythrocyte) 31 pg 25-34 Automated erythrocyte mean corpuscular h emoglobin concentration measurement (mass/volume) 35 g/dL 32-36 Automated erythrocyte distribution width ratio 12. 9 % 10.0- 14.5 Automated blood platelet count (count/volume) 163 10*3/uL 130-400 Automated blood platelet mean volume measurement 9.8 [foz_us] 7.4-10.4 Automated blood neutrophils/100 leukocytes 94 % 42-75 Automated blood lymphocytes/100 leukocytes 2 % 12-44 Blood monocytes/100 leukocytes 4 % 0-12 Automated blood eosinophils/100 leukocytes 0 % 0-10 Automated blood basophils/100 leukocytes 0 % 0-10 Blood neutrophils automated count (number/volume) 18.9 10*3 1.8-7.8 Blood lymphocytes automated count (number/volume) 0.3 10*3 1.0-4.0 Blood monocytes automated count (number/volume) 0. 8 10*3 0.0-1.0 Automated eosinophil count 0.0 10*3/uL 0 .0-0.3 Automated blood basophil count (count/volume) 0.0 10*3/uL 0.0-0.1 Comprehensive metabolic panel - 10/01/18 02:40 Serum or plasma sodium measurement (moles/volume) 135 mmol/L 135-145 Serum or plasma potassium measurement (moles/volume) 3.8 mmol/L 3.6-5.0 Serum or plasma chloride measurement (moles/volume) 100 mmol/L 98-107 Carbon dioxide 21 mmol/L 21-32 Serum or plasma anion gap determination (moles/volume) 14 mmol/L 5-14 Serum or plasma urea nitrogen measurement (mass/volume ) 16 mg/dL 7-18 Serum or plasma creatinine measurement (mass/volume) 1.07 mg/dL 0.60-1.30 Serum or plasma urea nitrogen/creatinine mass ratio 15 NRG Serum or plasma creatinine measurement w ith calculation of estimated glomerular filtration rate 59 NRG Serum or plasma glucose measurement (mass/volume) 147 mg/dL 70-105 Serum or plasma calcium measurement (mass/volume) 8.5 mg/dL 8.5-10.1 Serum or plasma total bilirubin measurement (mass/volu me) 1.5 mg/dL 0.1-1.0 Serum or plasma alkaline phosphatase salvador surement (enzymatic activity/volume) 60 U/L 40-136 Serum or plasma aspartate aminotransfera se measurement (enzymatic activity/volume) 16 U/L 5-34 Serum or plasma alanine aminotransferase measurement (enzymatic activity/volume) 20 U/L 0-55 Serum or plasma protein measurement (mass/volume) 6.9 g/dL 6.4-8.2 Serum or plasma albumin measurement (mass/volume) 4.2 g/dL 3.2-4.5 CALCIUM CORRECTED 8.3 mg/dL 8.5-10.1 PT panel in platelet poor plasma by coag ulation assay - 10/01/18 02:40 Prothrombin time (PT) in platelet poor plasma by coagu lation assay 16.6 s 12.2-14.7 INR in platelet poor plasma or blood by coagulation as say 1.3 0.8-1.4 Activated partial thromboplastin time (a PTT) in platelet poor plasma bycoagulation assay - 10/01/18 02:40 Activated partial thromboplastin time (a PTT) in platelet poor plasma bycoagulation assay 35 s 24-35 Serum or plasma choriogonadotropin (preg ofelia test) detection - 10/01/18 02:40 Serum or plasma choriogonadotropin ( test) de tection NEGATIVE NEGATIVE Blood lactic acid measurement (moles/vol ume) - 10/01/18 02:40 Blood lactic acid measurement (moles/volume) 3.51 mmol/L 0.50-2.00 Blood manual differential performed dete ction - 10/01/18 02:40 Blood monocytes/100 leukocytes 1 % NRG Manual blood segmented neutrophils/100 leukocytes 67 % NRG Blood band neutrophils/100 leukocytes 30 % NRG Manual blood lymphocytes/100 leukocytes 2 % NRG Blood erythrocyte morphology finding identification NORMAL NRG THYROID STIMULATING HORMONE - 10/01/18 0 2:40 THYROID STIMULATING HORMONE 2.71 u[iU]/mL 0.35-4.94 Serum or plasma thyroxine (T4) free keysha urement (mass/volume) - 10/01/18 02:40 Serum or plasma thyroxine (T4) free measurement (mass/ volume) 0.79 ng/dL 0.70-1.48 Bacterial blood culture - 10/01/18 02:40 Bacterial blood culture NG NRG Bacterial blood culture - 10/01/18 03:01 Bacterial blood culture NG NRG Complete urinalysis with reflex to cultu re - 10/01/18 04:25 Urine color determination YELLOW NRG Urine clarity determination CLEAR NR G Urine pH measurement by test strip 5 5-9 Specific gravity of urine by test strip 1.015 1.016-1.022 Urine protein assay by test strip, semi-quantitative 2+ NEGATIVE Urine glucose detection by automated test strip NE GATIVE NEGATIVE Erythrocytes detection in urine sediment by light micr oscopy 1+ NEGATIVE Urine ketones detection by automated test strip NE GATIVE NEGATIVE Urine nitrite detection by test strip NEGATIVE NEGATIVE Urine total bilirubin detection by test strip NEGA TIVE NEGATIVE Urine urobilinogen measurement by automated test strip (mass/volume) NORMAL NORMAL Urine leukocyte esterase detection by dipstick NEG ATIVE NEGATIVE Automated urine sediment erythrocyte cou nt by microscopy (number/high power field) [HPF] NRG Automated urine sediment leukocyte count by microscopy (number/high power field) NONE NRG Bacteria detection in urine sediment by light microsco py TRACE NRG Squamous epithelial cells detection in u rine sediment by light microscopy 10-25 NRG Crystals detection in urine sediment by light microsco py NONE NRG Casts detection in urine sediment by light microscopy PRESENT NRG Mucus detection in urine sediment by light microscopy NEGATIVE NRG Complete urinalysis with reflex to culture CULTURE PENDING NRG Hyaline casts detection in urine sediment by light ian roscopy 10-25 NRG Urine Legionella pneumophila antigen ass ay - 10/01/18 04:25 Urine Legionella pneumophila antigen assay Negativ e NRG Streptococcus pneumoniae antigen detecti on - 10/01/18 04:25 Streptococcus pneumoniae antigen detection Negativ e NRG Bacterial urine culture - 10/01/18 04:25 Bacterial urine culture NG NRG Serum or plasma lactate measurement (mol es/volume) - 10/01/18 05:17 Serum or plasma lactate measurement (moles/volume) 2.07 mmol/L 0.50-2.00 Methicillin resistant Staphylococcus aur eus (MRSA) screening culture - 10/01/18 06:15 Methicillin resistant Staphylococcus aureus (MRSA) scr eening culture NEG NRG Blood lactic acid measurement (moles/vol ume) - 10/01/18 08:55 Blood lactic acid measurement (moles/volume) 1.19 mmol/L 0.50-2.00 Complete blood count (CBC) with automate d white blood cell (WBC) differential - 10/02/18 03:20 Blood leukocytes automated count (number/volume) 17.9 10*3/uL 4.3-11.0 Blood erythrocytes automated count (number/volume) 3.53 10*6/uL 4.35-5.85 Venous blood hemoglobin measurement (mass/volume) 10.8 g/dL 11.5-16.0 Blood hematocrit (volume fraction) 32 % 35-52 Automated erythrocyte mean corpuscular volume 91 [ foz_us] 80-99 Automated erythrocyte mean corpuscular h emoglobin (mass per erythrocyte) 31 pg 25-34 Automated erythrocyte mean corpuscular h emoglobin concentration measurement (mass/volume) 34 g/dL 32-36 Automated erythrocyte distribution width ratio 13. 1 % 10.0- 14.5 Automated blood platelet count (count/volume) 139 10*3/uL 130-400 Automated blood platelet mean volume measurement 9.9 [foz_us] 7.4-10.4 Automated blood neutrophils/100 leukocytes 95 % 42-75 Automated blood lymphocytes/100 leukocytes 3 % 12-44 Blood monocytes/100 leukocytes 2 % 0-12 Automated blood eosinophils/100 leukocytes 0 % 0-10 Automated blood basophils/100 leukocytes 0 % 0-10 Blood neutrophils automated count (number/volume) 17.1 10*3 1.8-7.8 Blood lymphocytes automated count (number/volume) 0.4 10*3 1.0-4.0 Blood monocytes automated count (number/volume) 0. 4 10*3 0.0-1.0 Automated eosinophil count 0.0 10*3/uL 0 .0-0.3 Automated blood basophil count (count/volume) 0.0 10*3/uL 0.0-0.1 Comprehensive metabolic panel - 10/02/18 03:20 Serum or plasma sodium measurement (moles/volume) 139 mmol/L 135-145 Serum or plasma potassium measurement (moles/volume) 3.4 mmol/L 3.6-5.0 Serum or plasma chloride measurement (moles/volume) 111 mmol/L 98-107 Carbon dioxide 19 mmol/L 21-32 Serum or plasma anion gap determination (moles/volume) 9 mmol/L 5-14 Serum or plasma urea nitrogen measurement (mass/volume ) 7 mg/dL 7-18 Serum or plasma creatinine measurement (mass/volume) 0.64 mg/dL 0.60-1.30 Serum or plasma urea nitrogen/creatinine mass ratio 11 NRG Serum or plasma creatinine measurement w ith calculation of estimated glomerular filtration rate > NRG Serum or plasma glucose measurement (mass/volume) 121 mg/dL 70-105 Serum or plasma calcium measurement (mass/volume) 7.1 mg/dL 8.5-10.1 Serum or plasma total bilirubin measurement (mass/volu me) 0.9 mg/dL 0.1-1.0 Serum or plasma alkaline phosphatase salvador surement (enzymatic activity/volume) 47 U/L 40-136 Serum or plasma aspartate aminotransfera se measurement (enzymatic activity/volume) 18 U/L 5-34 Serum or plasma alanine aminotransferase measurement (enzymatic activity/volume) 15 U/L 0-55 Serum or plasma protein measurement (mass/volume) 5.0 g/dL 6.4-8.2 Serum or plasma albumin measurement (mass/volume) 3.0 g/dL 3.2-4.5 CALCIUM CORRECTED 7.9 mg/dL 8.5-10.1 Serum or plasma phosphate measurement (m ass/volume) - 10/02/18 03:20 Serum or plasma phosphate measurement (mass/volume) 1.5 mg/dL 2.3-4.7 Magnesium - 10/02/18 03:20 Magnesium 1.5 mg/dL 1.8-2.4 Blood lactic acid measurement (moles/vol ume) - 10/02/18 06:20 Blood lactic acid measurement (moles/volume) 1.57 mmol/L 0.50-2.00 Complete blood count (CBC) with automate d white blood cell (WBC) differential - 10/03/18 04:45 Blood leukocytes automated count (number/volume) 11.8 10*3/uL 4.3-11.0 Blood erythrocytes automated count (number/volume) 3.28 10*6/uL 4.35-5.85 Venous blood hemoglobin measurement (mass/volume) 10.1 g/dL 11.5-16.0 Blood hematocrit (volume fraction) 30 % 35-52 Automated erythrocyte mean corpuscular volume 91 [ foz_us] 80-99 Automated erythrocyte mean corpuscular h emoglobin (mass per erythrocyte) 31 pg 25-34 Automated erythrocyte mean corpuscular h emoglobin concentration measurement (mass/volume) 34 g/dL 32-36 Automated erythrocyte distribution width ratio 13. 3 % 10.0- 14.5 Automated blood platelet count (count/volume) 163 10*3/uL 130-400 Automated blood platelet mean volume measurement 10.2 [foz_us] 7.4-10.4 Automated blood neutrophils/100 leukocytes 94 % 42-75 Automated blood lymphocytes/100 leukocytes 4 % 12-44 Blood monocytes/100 leukocytes 2 % 0-12 Automated blood eosinophils/100 leukocytes 0 % 0-10 Automated blood basophils/100 leukocytes 0 % 0-10 Blood neutrophils automated count (number/volume) 11.1 10*3 1.8-7.8 Blood lymphocytes automated count (number/volume) 0.5 10*3 1.0-4.0 Blood monocytes automated count (number/volume) 0. 2 10*3 0.0-1.0 Automated eosinophil count 0.0 10*3/uL 0 .0-0.3 Automated blood basophil count (count/volume) 0.0 10*3/uL 0.0-0.1 Vancomycin trough - 10/03/18 04:45 Vancomycin trough 9.4 ug/mL 10.0-20.0 Comprehensive metabolic panel - 10/03/18 04:45 Serum or plasma sodium measurement (moles/volume) 141 mmol/L 135-145 Serum or plasma potassium measurement (moles/volume) 3.3 mmol/L 3.6-5.0 Serum or plasma chloride measurement (moles/volume) 112 mmol/L 98-107 Carbon dioxide 20 mmol/L 21-32 Serum or plasma anion gap determination (moles/volume) 9 mmol/L 5-14 Serum or plasma urea nitrogen measurement (mass/volume ) 6 mg/dL 7-18 Serum or plasma creatinine measurement (mass/volume) 0.62 mg/dL 0.60-1.30 Serum or plasma urea nitrogen/creatinine mass ratio 10 NRG Serum or plasma creatinine measurement w ith calculation of estimated glomerular filtration rate > NRG Serum or plasma glucose measurement (mass/volume) 130 mg/dL 70-105 Serum or plasma calcium measurement (mass/volume) 7.1 mg/dL 8.5-10.1 Serum or plasma total bilirubin measurement (mass/volu me) 0.3 mg/dL 0.1-1.0 Serum or plasma alkaline phosphatase salvador surement (enzymatic activity/volume) 44 U/L 40-136 Serum or plasma aspartate aminotransfera se measurement (enzymatic activity/volume) 17 U/L 5-34 Serum or plasma alanine aminotransferase measurement (enzymatic activity/volume) 20 U/L 0-55 Serum or plasma protein measurement (mass/volume) 5.1 g/dL 6.4-8.2 Serum or plasma albumin measurement (mass/volume) 3.0 g/dL 3.2-4.5 CALCIUM CORRECTED 7.9 mg/dL 8.5-10.1 Complete blood count (CBC) with automate d white blood cell (WBC) differential - 10/04/18 05:35 Blood leukocytes automated count (number/volume) 10.4 10*3/uL 4.3-11.0 Blood erythrocytes automated count (number/volume) 3.71 10*6/uL 4.35-5.85 Venous blood hemoglobin measurement (mass/volume) 11.2 g/dL 11.5-16.0 Blood hematocrit (volume fraction) 33 % 35-52 Automated erythrocyte mean corpuscular volume 89 [ foz_us] 80-99 Automated erythrocyte mean corpuscular h emoglobin (mass per erythrocyte) 30 pg 25-34 Automated erythrocyte mean corpuscular h emoglobin concentration measurement (mass/volume) 34 g/dL 32-36 Automated erythrocyte distribution width ratio 12. 8 % 10.0- 14.5 Automated blood platelet count (count/volume) 195 10*3/uL 130-400 Automated blood platelet mean volume measurement 9.3 [foz_us] 7.4-10.4 Automated blood neutrophils/100 leukocytes 76 % 42-75 Automated blood lymphocytes/100 leukocytes 17 % 12-44 Blood monocytes/100 leukocytes 6 % 0-12 Automated blood eosinophils/100 leukocytes 1 % 0-10 Automated blood basophils/100 leukocytes 0 % 0-10 Blood neutrophils automated count (number/volume) 7.9 10*3 1.8-7.8 Blood lymphocytes automated count (number/volume) 1.8 10*3 1.0-4.0 Blood monocytes automated count (number/volume) 0. 6 10*3 0.0-1.0 Automated eosinophil count 0.1 10*3/uL 0 .0-0.3 Automated blood basophil count (count/volume) 0.0 10*3/uL 0.0-0.1 Comprehensive metabolic panel - 10/04/18 05:35 Serum or plasma sodium measurement (moles/volume) 139 mmol/L 135-145 Serum or plasma potassium measurement (moles/volume) 2.6 mmol/L 3.6-5.0 Serum or plasma chloride measurement (moles/volume) 103 mmol/L 98-107 Carbon dioxide 28 mmol/L 21-32 Serum or plasma anion gap determination (moles/volume) 8 mmol/L 5-14 Serum or plasma urea nitrogen measurement (mass/volume ) 6 mg/dL 7-18 Serum or plasma creatinine measurement (mass/volume) 0.69 mg/dL 0.60-1.30 Serum or plasma urea nitrogen/creatinine mass ratio 9 NRG Serum or plasma creatinine measurement w ith calculation of estimated glomerular filtration rate > NRG Serum or plasma glucose measurement (mass/volume) 89 mg/dL 70-105 Serum or plasma calcium measurement (mass/volume) 7.7 mg/dL 8.5-10.1 Serum or plasma total bilirubin measurement (mass/volu me) 0.5 mg/dL 0.1-1.0 Serum or plasma alkaline phosphatase salvador surement (enzymatic activity/volume) 46 U/L 40-136 Serum or plasma aspartate aminotransfera se measurement (enzymatic activity/volume) 22 U/L 5-34 Serum or plasma alanine aminotransferase measurement (enzymatic activity/volume) 25 U/L 0-55 Serum or plasma protein measurement (mass/volume) 5.6 g/dL 6.4-8.2 Serum or plasma albumin measurement (mass/volume) 3.1 g/dL 3.2-4.5 CALCIUM CORRECTED 8.4 mg/dL 8.5-10.1 Complete blood count (CBC) with automate d white blood cell (WBC) differential - 10/05/18 06:29 Blood leukocytes automated count (number/volume) 6.9 10*3/uL 4.3-11.0 Blood erythrocytes automated count (number/volume) 4.23 10*6/uL 4.35-5.85 Venous blood hemoglobin measurement (mass/volume) 13.1 g/dL 11.5-16.0 Blood hematocrit (volume fraction) 37 % 35-52 Automated erythrocyte mean corpuscular volume 88 [ foz_us] 80-99 Automated erythrocyte mean corpuscular h emoglobin (mass per erythrocyte) 31 pg 25-34 Automated erythrocyte mean corpuscular h emoglobin concentration measurement (mass/volume) 35 g/dL 32-36 Automated erythrocyte distribution width ratio 12. 8 % 10.0- 14.5 Automated blood platelet count (count/volume) 222 10*3/uL 130-400 Automated blood platelet mean volume measurement 9.3 [foz_us] 7.4-10.4 Automated blood neutrophils/100 leukocytes 67 % 42-75 Automated blood lymphocytes/100 leukocytes 22 % 12-44 Blood monocytes/100 leukocytes 9 % 0-12 Automated blood eosinophils/100 leukocytes 2 % 0-10 Automated blood basophils/100 leukocytes 1 % 0-10 Blood neutrophils automated count (number/volume) 4.6 10*3 1.8-7.8 Blood lymphocytes automated count (number/volume) 1.5 10*3 1.0-4.0 Blood monocytes automated count (number/volume) 0. 6 10*3 0.0-1.0 Automated eosinophil count 0.1 10*3/uL 0 .0-0.3 Automated blood basophil count (count/volume) 0.0 10*3/uL 0.0-0.1 Comprehensive metabolic panel - 10/05/18 06:29 Serum or plasma sodium measurement (moles/volume) 141 mmol/L 135-145 Serum or plasma potassium measurement (moles/volume) 3.0 mmol/L 3.6-5.0 Serum or plasma chloride measurement (moles/volume) 103 mmol/L 98-107 Carbon dioxide 29 mmol/L 21-32 Serum or plasma anion gap determination (moles/volume) 9 mmol/L 5-14 Serum or plasma urea nitrogen measurement (mass/volume ) 8 mg/dL 7-18 Serum or plasma creatinine measurement (mass/volume) 0.78 mg/dL 0.60-1.30 Serum or plasma urea nitrogen/creatinine mass ratio 10 NRG Serum or plasma creatinine measurement w ith calculation of estimated glomerular filtration rate > NRG Serum or plasma glucose measurement (mass/volume) 89 mg/dL 70-105 Serum or plasma calcium measurement (mass/volume) 7.7 mg/dL 8.5-10.1 Serum or plasma total bilirubin measurement (mass/volu me) 0.4 mg/dL 0.1-1.0 Serum or plasma alkaline phosphatase salvador surement (enzymatic activity/volume) 44 U/L 40-136 Serum or plasma aspartate aminotransfera se measurement (enzymatic activity/volume) 15 U/L 5-34 Serum or plasma alanine aminotransferase measurement (enzymatic activity/volume) 21 U/L 0-55 Serum or plasma protein measurement (mass/volume) 5.4 g/dL 6.4-8.2 Serum or plasma albumin measurement (mass/volume) 3.2 g/dL 3.2-4.5 CALCIUM CORRECTED 8.3 mg/dL 8.5-10.1 Urine beta human chorionic gonadotropin (hCG) measurement - 11/20/18 07:10 Urine beta human chorionic gonadotropin (hCG) measurem ent NEGATIVE NEGATIVE BODY FLUID DIFFERENTIAL - 11/20/18 08:02 Specimen source identification of body fluid OTHER NRG Evaluation of color of body fluid COLORLESS NRG Determination of appearance of body fluid SLT CLDY NRG Manual body fluid lymphocytes/100 leukocytes 10 % NRG Other cells/100 leukocytes in body fluid by manual cou nt 90 % NRG Sputum Gram stain - 11/20/18 08:02 Sputum Gram stain [id number]. NRG Bacteria identification in bronchial spe cimen by aerobe culture - 11/20/18 08:02 QUANTITY OF GROWTH . NRG Bacteria identification in bronchial specimen by aerob e culture USUAL RESP NRG FTX;REPORTABLE 1,000 CFU/ML NRG Mycobacterium species detection by organ ism specific culture - 11/20/18 08:02 QUANTITY OF GROWTH . NRG Mycobacterium species detection by organism specific c ulture SEE COMMEN NRG C FUNGUS SPUTUM FLUID TISSUE - 11/20/18 08:02 Sputum Gram stain - 11/20/18 08:03 Sputum Gram stain TNP NRG Bacteria identification in bronchial spe cimen by aerobe culture - 11/20/18 08:03 Bacteria identification in bronchial specimen by aerob e culture NG NRG C FUNGUS SPUTUM FLUID TISSUE - 11/20/18 08:03 Influenza virus A and B antigen detectio n - 06/04/19 01:40 FLU RESULT NEGATIVE FOR INFLUENZA A AND B ANTIGENS BY IA NRG Methicillin resistant Staphylococcus aur eus (MRSA) screening culture - 11/23/19 09:56 Methicillin resistant Staphylococcus aureus (MRSA) scr eening culture NEG NRG Encounters ACCT No. Visit Date/Time Discharge Status Pt. Type Provider Facility Loc./Unit Complaint [id number] 03/08/2019 12:00:00 03/08/2019 23:59:5 9 CLS Outpatient JEFF JOYA Bernadette [facility] [id number] 08/30/2018 15:40:00 Document Registration [id number] 07/29/2019 15:48:00 07/29/2019 23:59: 00 DIS Outpatient Jeff Joya [id number] 11/23/2019 09:35:00 020 10:18:00 DIS Outpatient GEORGI MIGUEL DO Via [facility] PREOP PREVIOUS SECT ION [id number] 10/29/2019 14:18:00 23:59:59 CLS Outpatient KIRSTIE MAC MD [facility] CARD UNSPECIFIED COPD [id number] 07/15/2019 15:38:00 23:59:59 CLS Outpatient DARWIN MORENO APRN [facility] RAD [id number] 07/06/2019 12:02:00 23:59:59 CLS Preadmit KIRSTIE MAC MD a [facility] RT INTERSTITIAL LUNG DISEA SE [id number] 07/06/2019 12:00:00 23:59:59 CLS Preadmit KIRSTIE MAC MD a [facility] CARD COPD [id number] 06/04/2019 01:26:00 02:58:00 DIS Emergency ZACK UREÑA, SP Lockhart [facility] ER POSS PNEUMONIA, LEFT CHEST PAIN,SOB [id number] 05/28/2019 12:48:00 23:59:59 CLS Outpatient KIRSTIE MAC MD [facility] RT INTERSTITIAL LUNG DISEA SE [id number] 02/24/2019 13:38:00 23:59:59 CLS Preadmit KIRSTIE MAC MD a [facility] RT ILD [id number] 02/13/2019 08:39:00 23:59:59 CLS Preadmit BETTY TRONCOSO APRN [facility] RT ASTHMA [id number] 12/11/2018 12:24:00 23:59:59 CLS Outpatient SAPNA LATHAM DO [facility] LAB ASTHMA [id number] 12/03/2018 08:33:00 23:59:59 CLS Outpatient BETTY TRONCOSO APRN [facility] RAD ABNORMAL RESULT S OF PULMONARY FUNCTION STUDIES [id number] 11/20/2018 07:07:00 23:59:59 CLS Outpatient SAPNA LATHAM DO [facility] ENDO PNEUMONIA/ASTHMA/DYSPNE A [id number] 11/19/2018 05:55:00 23:59:59 CLS Outpatient YEISON SAPNA RHOADES [facility] PREOP BRONCHOSCOPY [id number] 11/18/2018 12:18:00 23:59:59 CLS Outpatient BETTY TRONCOSO INSOLE TAPER Via [facility] RAD PNEUMONIA [id number] 11/13/2018 10:32:00 23:59:59 CLS Outpatient BETTY TRONCOSO INSOLE TAPER Via [facility] RAD ASTHMA,PNEUMONI A,HX OF SEPSIS [id number] 10/29/2018 13:37:00 23:59:59 CLS Outpatient BETTY TRONCOSO INSOLE TAPER [facility] RT ASTHMA,PNEUMONI A,HX OF SEPSIS [id number] 10/01/2018 05:52:00 11:55:00 DIS Inpatient SHIRA UREÑA, SHILA Luna [facility] 4TH SEPTIC SHOCK,LLL PNEUMO LUDY [id number] 06/23/2018 07:20:00 13:14:00 DIS Outpatient RYLIE ARIAS DO [facility] CHOLELITHIASIS [id number] 06/20/2018 06:41:00 12:43:00 DIS Outpatient RYLIE ARIAS DO [facility] PREOP CHOLELITHIASIS [id number] 12/16/2019 12:30:00 P EN Preadmit KIRSTIE MAC MD [facility] [place] RT ILD [id number] 11/30/2019 07:30:00 P EN Preadmit GEORGI MIGUEL DO PREVIOUS SECTION [id number] 04/23/2018 00:43:00 Document Registration
[2019-11-30 06:36] LABS: BASOPHILS % (AUTO) 0 % (0-10); EOSINOPHILS # (AUTO) 0.1 10^3/uL (0.0-0.3); EOSINOPHILS % (AUTO) 1 % (0-10); HEMATOCRIT 37 % (35-52); HEMOGLOBIN 12.2 G/DL (11.5-16.0); LYMPHOCYTES # (AUTO) 1.7 X 10^3 (1.0-4.0); LYMPHOCYTES % (AUTO) 23 % (12-44); MEAN CORPUSCULAR HEMOGLOBIN 30 PG (25-34); MEAN CORPUSCULAR HGB CONC 33 G/DL (32-36); MEAN CORPUSCULAR VOLUME 90 FL (80-99); MEAN PLATELET VOLUME 9.8 FL (7.4-10.4); MONOCYTES # (AUTO) 0.6 X 10^3 (0.0-1.0); MONOCYTES % (AUTO) 8 % (0-12); NEUTROPHILS # (AUTO) 5.1 X 10^3 (1.8-7.8); NEUTROPHILS % (AUTO) 69 % (42-75); PLATELET COUNT 162 10^3/uL (130-400); WHITE BLOOD COUNT 7.4 10^3/uL (4.3-11.0)
[2019-11-30] MEDS ORDERED: PHENYLEPHRINE 100 MCG/ML 10 ML (ANESTHESIA) SYR ONE (07:00)
[2019-11-30] MEDS ORDERED: fentaNYL INJECTION 100 MCG/2 ML AMP ONE (07:00)
[2019-11-30] MEDS: LACTATED RINGERS 1,000 ML IV SCH ×4 (07:05→23:05)
--- NOTE | 2019-11-30 07:14 | History & Physical-OB ---
OB - Chief Complaint & HPI Date/Time Date of Admission: Date of Admission: Nov 30, 2019 at 06:03 Date seen by a Provider: Nov 30, 2019 Time Seen by a Provider: 06:55 Chief Complaint/History OB-Reason for Admission/Chief: Section Hx : 9 Hx Para: 4 Expected Date of Delivery: Dec 05, 2019 Gestational Age in Weeks: 39 Gestational Age in Days: 2 Indication for : desires repeat Admission Nurse Assessment Rev: Yes History of Labs A pos Antibody neg RI RPR NR HBsAg NR HIV NR GC neg GBS neg Allergies and Home Medications Allergies Coded Allergies: bacitracin (Verified Allergy, Unknown, Rash, 11/30/19) neomycin (Verified Allergy, Unknown, Rash, 11/30/19) polymyxin B (Verified Allergy, Unknown, Rash, 11/30/19) Home Medications Cetirizine HCl 10 Mg Tablet, 10 MG PO DAILY PRN for allergies, (Reported) Fluticasone Furoate 200 Mcg Blst.w.dev, 200 MCG IH DAILY, (Reported) Levothyroxine Sodium 75 Mcg Tablet, 75 MCG PO DAILY, (Reported) Vit W-Ca,Fe,FA(<1 mg) 1 Each Tablet, 1 EACH PO DAILY, (Reported) Tiotropium [place] 1 Inh Aerp, 2 INH IH DAILY, (Reported) Patient Home Medication List Home Medication List Reviewed: Yes OB - History Hx of Present Care: Yes Ultrasounds: Normal mid trimester US Obstetrical Complications: Gestational Diabetes Medical Complications: None Delivery History Hx Blood Disorders: No Patient Past Medical History n/a Social History/Family History Recent Infectious Disease Expo: No Alcohol Use: Denies Use Recreational Drug Use: No 2nd Hand Smoke Exposure: No Immunizations Hepatitis A: No Hepatitis B: No Tetanus Booster (TDap): Unknown Date of Influenza Vaccine: Aug 01, 2019 OB - Admission Exam Physical Exam Vitals: Vital Signs 11/30/19 06:36 Temp 36.6 Pulse 79 Resp 18 Pulse Ox 97 O2 Delivery Room Air HEENT: NCAT Heart: Rhythm Normal Lungs: Clear Abdomen: Gravid Extremities: Normal Reflexes: Normal Heart Rate: 130's Accelerations: Accelerations Present Decelerations: No Decelerations Short Term Variability: Present Molding Engineer Variability: Average (6-25) Contractions on Admission: >10 Minutes Apart Labs Laboratory Tests Test 11/30/19 06:25 Range/Units White Blood Count 7.4 4.3-11.0 10^3/uL Red Blood Count 4.10 L 4.35-5.85 10^6/uL Hemoglobin 12.2 11.5-16.0 G/DL Hematocrit 37 35-52 % Mean Corpuscular Volume 90 80-99 FL Mean Corpuscular Hemoglobin 30 25-34 PG Mean Corpuscular Hemoglobin Concent 33 32-36 G/DL Red Cell Distribution Width 14.0 10.0-14.5 % Platelet Count 162 130-400 10^3/uL Mean Platelet Volume 9.8 7.4-10.4 FL Neutrophils (%) (Auto) 69 42-75 % Lymphocytes (%) (Auto) 23 12-44 % Monocytes (%) (Auto) 8 0-12 % Eosinophils (%) (Auto) 1 0-10 % Basophils (%) (Auto) 0 0-10 % Neutrophils # (Auto) 5.1 1.8-7.8 X 10^3 Lymphocytes # (Auto) 1.7 1.0-4.0 X 10^3 Monocytes # (Auto) 0.6 0.0-1.0 X 10^3 Eosinophils # (Auto) 0.1 0.0-0.3 10^3/uL Basophils # (Auto) 0.0 0.0-0.1 10^3/uL OB - Assessment/Plan/Diagnosis Assessment Assessment: section Admission Dx 34 yo @ 39 weeks GDMA1 AMA Previous Admission Status: Inpatient Order (span 2 midnights) Reason for Inpatient Admission: Repeat Plan Plan: Section GEORGI MIGUEL DO Nov 30, 2019 07:14
[2019-11-30] MEDS ORDERED: MEASLES,MUMPS,RUBELLA 1 EA INJ SC SCH (07:15)
[2019-11-30] MEDS ORDERED: TETANUS,DIPTH,PERTUSS P/F (BOOSTRIX) 0.5 ML VIAL IM SCH (07:15)
[2019-11-30] MEDS ORDERED: ONDANSETRON 4 MG/2 ML (SDV) Z0FRAN IVP PRN (07:15)
--- NOTE | 2019-11-30 07:22 | Discharge Inst-Women's Service ---
Discharge Inst-Women's Serv Depart Medication/Instructions New, Converted or Re-Newed RX: RX on Chart Final Diagnosis POD 2 RLTCS Problems Reviewed?: Yes Consults/Follow Up Additional Follow Up: Yes Orders/Referrals Dr. Diaz in 7-10 days and in 6 weeks Activity Activity: Activity as Tolerated Driving Instructions: No Driving for 1 Week NO SMOKING: NO SMOKING Nothing Inside Vagina: No Douching, No Vaiva Vo, No Tampons Diet Discharge Diet: No Restrictions Symptoms to Report to : Bleeding Excessive, Pain Increased, Fever Over 101 Degrees F, Vaginal Bleeding Increase, Questions/Concerns For Any Problems or Questions: Contact Your Physician Skin/Wound Care Infection Signs and Symptoms: Increased Redness, Foul Odor of Wound, Increased Drainage, Skin Itchy or Has a Rash, Increased Swelling, Temperature Above 101 F Operative Area Clean and Dry: Keep Incision Clean/Dry Stitches/Juanita/Dermabond: Dermabond, Care of Stitches Bathing Instructions: GEORGI Johnson DO Nov 30, 2019 07:22
[2019-11-30] MEDS ORDERED: IBUP-844 PO (07:23)
[2019-11-30] MEDS ORDERED: Hydrocodone Bit/Acetaminophen PO (07:23)
[2019-11-30] MEDS ORDERED: DCS100C PO (07:23)
[2019-11-30] MEDS ORDERED: OXYTOCIN PRE-MIX DRIP 1,000 ML IV ONE (07:26)
[2019-11-30] MEDS ORDERED: BUPIVACAINE 0.5% 30 ML (SENSORCAINE) VIAL ONE (08:04)
[2019-11-30] MEDS: OXYTOCIN PRE-MIX DRIP 500 ML IV SCH ×2 (09:15→22:56)
--- NOTE | 2019-11-30 09:45 | NUR ---
Transferred to 307. FF @U/2. This nurse to continue with this pt's care.
[2019-11-30] MEDS: HYDROcodone/APAP 5 MG/325 MG (LORTAB) TAB PO PRN ×2 (11:41→18:43)
--- NOTE | 2019-11-30 12:40 | NUR ---
Large amount of rubra on pad/chux with few small clots. FF @ u/2. Will continue to observe.
--- NOTE | 2019-11-30 14:04 | OPERATIVE REPORT ---
DATE OF SERVICE: PREOPERATIVE DIAGNOSES: 1. A 34-year-old G9, P4 at 39 weeks gestation. 2. Gestational diabetes mellitus A1. 3. AMA. 4. Previous section. POSTOPERATIVE DIAGNOSES: 1. A 34-year-old G9, P4 at 39 weeks gestation. 2. Gestational diabetes mellitus A1. 3. AMA. 4. Previous section. 5. Meconium stained fluid. PROCEDURE PERFORMED: Repeat low transverse section. SURGEON: Kvng Miguel DO. FUEL CELL ENGINEER: Luly Su DNP, who was necessary for retraction and manipulation throughout the procedure. ANESTHESIA: Spinal. ESTIMATED BLOOD LOSS: 600 mL. URINE OUTPUT: 150 mL clear at the end of the procedure. FLUIDS: 1200 mL lactated Ringer's solution. FINDINGS: A live female infant weighing 7 pounds 8 ounces, Apgars of 8 and 9. Grossly normal appearing uterus, bilateral fallopian tubes and ovaries. Dense scarring and obliteration of the rectus abdominis muscles to the peritoneum and the underlying rectus fascia. SPECIMEN SENT: Placenta. INDICATIONS FOR PROCEDURE: This 34-year-old female is a patient, who had sought care in my office. Her was complicated by advanced maternal age and gestational diabetes; however, was diet controlled. The patient was counseled about 39-week delivery. Risks of the procedure were discussed with the patient and her care was reviewed in the preoperative area. After all her questions were answered, consent was obtained and the patient was taken to the operating room. OPERATIVE REPORT IN DETAIL: Once in the operating room, spinal anesthesia was found to be adequate. She was placed in the supine position with a leftward tilt, prepped and draped in a normal sterile fashion. A timeout was performed and anesthesia was tested. At that point, a Pfannenstiel skin incision made through a previously existing scar using knife and carried down to the underlying fascia using Bovie cautery. Fascial incision was extended laterally using Bovie cautery. This process makes it difficult due to dense scar tissue to identify the underlying rectus muscles. They are deviated laterally and the peritoneum was encountered immediately on the deep side of the fascia. The peritoneum was entered bluntly and extended using blunt traction. I then elevated the rectus fascia and attempted to dissect away the peritoneum and the residual rectus muscles off the underlying fascia superiorly and inferiorly. This was not possible as the bladder was sitting just inferior or caudad to that incision; however, I do have adequate peritoneal access at this point. I therefore placed an Mohan ring retractor in the peritoneal incision, which offers excellent lateral sidewall retraction. I made a low transverse incision to the vesicouterine peritoneum and bluntly dissected this off the lower uterine segment, which allows me to create a bladder flap. I then proceeded with my myotomy until membranes were visualized, at which point I extended the uterine incision laterally and superiorly using bandage scissors. Amniotomy was performed and meconium stained fluid was noted at the time of amniotomy. was found in the vertex presentation. With gentle fundal pressure, the 's head was elevated up the incision, where it was delivered through the incision. The nares and oropharynx were bulb suctioned. Anterior and posterior shoulders were delivered and the infant was then brought to the operative field where the cord was doubly clamped and cut and was handed off to waiting nurses in attendance. Cord blood was collected. Three-vessel cord with intact placenta was delivered spontaneously thereafter. IV Pitocin was initiated to facilitate uterine contraction. Uterine fundus became firmer by manual massage. Uterus was then exteriorized and cleared of all endometrial clots and debris. I then proceeded to close the uterine incision using 0 Vicryl suture in a running locked fashion. Second layer of imbricating 0 Monocryl was placed. Excellent hemostasis was noted after doing this. I then placed the uterus back in the pelvis and copiously irrigated the pelvis using normal saline. There was no active bleeding noted from any of my dissection planes. I placed Interceed antiadhesive over my low transverse incision and proceeded with closing the peritoneum using 3-0 Vicryl suture in a running fashion. The rectus muscles were reapproximated using 3-0 Vicryl suture in an interrupted fashion. The fascia was reapproximated using 0 Vicryl suture in a running fashion. The skin was then reapproximated using 4-0 Monocryl suture in a running subcuticular. Dermabond was applied to incision and sterile dressing with adhesive white tape. The patient tolerated the procedure well and was taken to the recovery area in stable condition. Lap and sponge counts were the procedure. Instrument counts correct as well. Two grams of Ancef given preoperatively for infection prophylaxis. Job ID: [id number] DocumentID: [id number] Dictated Date: 11/30/2019 08:45:53 Asphalt Blender Date: 11/30/2019 14:04:06 Dictated By: KVNG MIGUEL DO
--- NOTE | 2019-11-30 14:30 | NUR ---
Up to BR with light rubra flow. Voided 200ml. Tolerated activity with minimal dizziness.
[2019-11-30] MEDS: KETOROLAC 30 MG/ML VIAL IV SCH ×3 (15:38→22:47)
--- NOTE | 2019-11-30 19:00 | NUR ---
Drinking well. Intake 500ml, output 650ml per 2 voids.
[2019-11-30] MEDS: DOCUSATE SODIUM 100 MG (COLACE) CAP PO SCH ×2 (21:00→22:47)
[2019-11-30] MEDS: CATHETER FLUSH 10 ML SYR IV SCH ×2 (22:47→22:59)
[2019-12-01 00:40] VITALS: BP 108/69
[2019-12-01] MEDS: HYDROcodone/APAP 5 MG/325 MG (LORTAB) TAB PO PRN (00:44)
[2019-12-01] MEDS: KETOROLAC 30 MG/ML VIAL IV SCH (04:52)
[2019-12-01 04:54] VITALS: BP 112/70
--- NOTE | 2019-12-01 06:41 | Anesthesia-Regional Post-Op ---
Regional Patient Condition Mental Status: Alert, Oriented x3 Circulation: Same as Pre-Op Headache: Absent Sensation: Full Recovery Motor Block: Absent Post Op Complications Complications None Follow Up Care/Instructions Patient Instructions None needed. Anesthesia/Patient Condition Patient is doing well, no complaints, stable vital signs, no apparent adverse anesthesia problems. No complications reported per nursing. ANALISA CALL CRNA Dec 01, 2019 06:41
[2019-12-01 06:43] LABS: BASOPHILS % (AUTO) 0 % (0-10); EOSINOPHILS % (AUTO) 1 % (0-10); HEMATOCRIT 29 % (35-52); HEMOGLOBIN 9.3 G/DL (11.5-16.0); LYMPHOCYTES # (AUTO) 1.5 X 10^3 (1.0-4.0); LYMPHOCYTES % (AUTO) 18 % (12-44); MEAN CORPUSCULAR HEMOGLOBIN 30 PG (25-34); MEAN CORPUSCULAR HGB CONC 33 G/DL (32-36); MEAN CORPUSCULAR VOLUME 91 FL (80-99); MEAN PLATELET VOLUME 9.8 FL (7.4-10.4); MONOCYTES # (AUTO) 0.6 X 10^3 (0.0-1.0); MONOCYTES % (AUTO) 7 % (0-12); NEUTROPHILS # (AUTO) 6.3 X 10^3 (1.8-7.8); NEUTROPHILS % (AUTO) 74 % (42-75); PLATELET COUNT 151 10^3/uL (130-400); RED CELL DISTRIBUTION WIDTH 13.9 % (10.0-14.5); WHITE BLOOD COUNT 8.5 10^3/uL (4.3-11.0)
[2019-12-01] MEDS: DOCUSATE SODIUM 100 MG (COLACE) CAP PO SCH ×2 (08:58→23:40)
[2019-12-01 09:00] VITALS: BP 112/73
[2019-12-01] MEDS: IBUPROFEN 600 MG (MOTRIN) TAB PO SCH ×4 (11:57→23:40)
[2019-12-01 12:30] VITALS: BP 101/67
[2019-12-01] MEDS: CATHETER FLUSH 10 ML SYR IV SCH (14:00)
[2019-12-01 16:40] VITALS: BP 103/63
[2019-12-01 23:39] VITALS: BP 118/74
[2019-12-02 05:01] VITALS: BP 104/66
[2019-12-02] MEDS: IBUPROFEN 600 MG (MOTRIN) TAB PO SCH (05:01)
--- NOTE | 2019-12-02 05:07 | NUR ---
Rn to room for vs and medical equipment sales, in bed with pt, education if pt intends to sleep, protocol is for to be in crib. Pt voices understanding, turns face away and closes her eyes. RN asks if she wants rn to put in crib for her now, pt states "If you want." Infant now on back in crib per rn. No ss distress noted in , color pink, resp even unlabored, quiet asleep. Pt denies needs, will cont to monitor.
[2019-12-02 08:52] VITALS: BP 126/73
[2019-12-02] MEDS: DOCUSATE SODIUM 100 MG (COLACE) CAP PO SCH (08:53)
--- NOTE | 2019-12-02 08:55 | NUR ---
PT UP IN ROOM. VS OBTAINED. COLACE GIVEN PO; SEE EMAR FOR FURTHER. INITIAL SHIFT ASSESSMENT COMPLETED; SEE INTERVENTION FOR FURTHER. PT READY TO LEAVE, WAITING ON DR TO MAKE ROUNDS. NO NEEDS VOICED. CALL LIGHT WITHIN REACH.
--- NOTE | 2019-12-02 09:26 | Postpartum Progress Note ---
Note Note Day # 2 Subjective: Patient is without complaints. Ambulating, voiding. Tolerating a regular diet without nausea or vomiting. Normal lochia. Pain is well controlled with oral pain medications. Objective: Physical Exam: General - Alert and oriented, no apparent distress Abdomen - Soft, appropriately tender to palpation, non-distended, fundus firm at umbilicus Extremities - no edema, negative Ja's bilaterally Incision- c/d/i Assessment: POD 2 RLTCS Acute blood loss anemia Plan: Routine care. Encourage breast feeding. Encourage ambulation. Ferrous sulfate supplementation. Plan for discharge today Vitals - Labs Vital Signs - I&O Vital Signs Date Time Temp Pulse Resp B/P (MAP) Pulse Ox O2 Delivery O2 Flow Rate FiO2 12/02/19 08:52 36.6 90 18 126/73 (90) 98 Room Air 12/02/19 05:01 36.8 65 16 104/66 (79) 97 Room Air 12/01/19 23:39 37.0 64 16 118/74 (89) 97 Room Air 12/01/19 16:40 36.9 70 16 103/63 (76) 96 Room Air 12/01/19 12:30 36.8 76 16 101/67 (78) 96 Room Air GEORGI MIGUEL DO Dec 02, 2019 09:26
--- NOTE | 2019-12-02 09:30 | NUR ---
DR. MIGUEL HAS BEEN HERE TO SEE PT.
--- NOTE | 2019-12-02 09:46 | NUR ---
PT SITTING UP ON THE COUCH, HOLDING INFANT. DISCHARGE PAPERS PROVIDED AND REVIEWED WITH PT, PT VERBALIZES UNDERSTANDING AND DENIES ANY QUESTIONS OR NEEDS AT THIS TIME. PAPER SIGNED.
--- NOTE | 2019-12-02 10:20 | NUR ---
PT DISCHARGED FROM -[facility] TO PERSONAL AUTO VIA AMBULATORY IN STABLE CONDITION ACC BY NNAMDI, S/O AND Sabina KATZ RN.
== END 2019-12-02 10:20 | disposition home or self-care (01) | DRG 787 ==
LOC: LDRP 06:03
PROVIDERS: ADMIT Obstetrics & Gynecology; ATTEND Obstetrics & Gynecology
PROC: 10D00Z1 Extraction of Products of Conception, Low, Open Approach (ICD-10-PCS; principal; 2019-11-30 07:14)
DX: O34.211 Maternal care for low transverse scar from previous cesarean delivery (principal); O24.420 Gestational diabetes mellitus in childbirth, diet controlled; O77.0 Labor and delivery complicated by meconium in amniotic fluid; O90.81 Anemia of the puerperium; D62 Acute posthemorrhagic anemia; Z37.0 Single live birth; Z3A.39 39 weeks gestation of pregnancy; Z23 Encounter for immunization
CPT/HCPCS: 36415; 85025; 86850; 86900; 86901; 90715

== ENCOUNTER → 2020-05-04 | Outpatient (CLI) | payer BC, MEDICAID ==
[~2020-05-04] MED LIST changes: -CITRIC ACID/SOB CIT (BICITRA) 30 ML UDC ONE; +DCS100C PO; -FAMOTIDINE 20MG/2ML IV (PEPCID) ONE; +Hydrocodone Bit/Acetaminophen PO; +IBUP-844 PO; -LACTATED RINGERS 1,000 ML IV ONE; -METOCLOPRAMIDE INJ 10 MG/2 ML (REGLAN) ONE
== END ==
LOC: RT 13:11
PROVIDERS: ATTEND Internal Medicine Pulmonary Disease
DX: J84.9 Interstitial pulmonary disease, unspecified (principal); Z53.8 Procedure and treatment not carried out for other reasons

== ENCOUNTER → 2020-10-13 | Outpatient (CLI) | payer MEDICAID ==
[~2020-10-13] MED LIST changes: -CETI10TA21 PO; +CETI10TA49 PO
--- NOTE | 2020-10-13 09:53 | Diagnostic Imaging Report ---
PROCEDURE: US Thyroid. TECHNIQUE: Multiple real-time grayscale images were obtained of the thyroid in various projections. INDICATION: Hypothyroidism. Right lobe thyroid measures 4.8 x 0.8 x 1.1 cm. Left lobe measures 3.9 x 0.8 x 0.9 cm. Isthmus is 2 mm in thickness. Both lobes show homogeneous echotexture. No discrete mass is detected. IMPRESSION: Unremarkable thyroid ultrasound. Dictated by: Dictated on workstation # [id number]
== END ==
LOC: RAD 08:55
PROVIDERS: ATTEND Nurse Practitioner
DX: E03.9 Hypothyroidism, unspecified (principal); M79.89 Other specified soft tissue disorders
CPT/HCPCS: 76536

== ENCOUNTER → 2020-11-18 | Outpatient (CLI) | payer MEDICAID ==
[~2020-11-18] MED LIST changes: +RT-ALBUTEROL SULF 2.5 MG/3 ML PRE-MIX VIAL INH ONE
== END ==
LOC: RT 10:28
PROVIDERS: ATTEND Internal Medicine Pulmonary Disease
DX: J44.9 Chronic obstructive pulmonary disease, unspecified (principal); J84.9 Interstitial pulmonary disease, unspecified
CPT/HCPCS: 94060; 94726; 94729

== ENCOUNTER → 2021-06-22 | Outpatient (CLI) | payer MEDICAID ==
[~2021-06-22] MED LIST changes: -DCS100C PO; +DOCU-239 PO; -RT-ALBUTEROL SULF 2.5 MG/3 ML PRE-MIX VIAL INH ONE
--- NOTE | 2021-06-22 15:10 | Diagnostic Imaging Report ---
INDICATION: Acute bronchitis. PA and lateral views of the chest are obtained with comparison made to study of 11/13/2018. FINDINGS: There is bilateral air trapping, similar to previous study. Heart size and pulmonary vascularity are within normal limits. Note is made of pectus excavatum. There is no evidence of consolidation, pneumothorax, or significant pleural fluid. IMPRESSION: Bilateral air trapping is similar to previous study without new abnormality detected. Dictated by: Dictated on workstation # [id number]
== END ==
LOC: RAD 14:30
PROVIDERS: ATTEND Nurse Practitioner Family
DX: J20.9 Acute bronchitis, unspecified (principal)
CPT/HCPCS: 71046

== ENCOUNTER 2021-12-06 18:25 | Emergency (ER) | payer MEDICAID ==
[~2021-12-06] VITALS: Ht 162 cm; Wt 72.3 kg
[2021-12-06 18:30] VITALS: BP 128/92
[2021-12-06] MEDS ORDERED: LACTATED RINGERS 1,000 ML IV ONE (19:00)
--- NOTE | 2021-12-06 19:09 | ED Cough/URI ---
General Chief Complaint: Cough/Cold/Flu Symptoms Stated Complaint: BACK PAIN, COUGH Nursing Triage Note: PT AMB TO ED, PT CO OF COLD AND COUGH SX, WAS TESTED FOR COVID AND FLU AND WAS NEGATIVE, PT WAS SEEN ON AND PRESCIBED DOXY. PT ALSO TAKING ALBUTEROL TX. PT CO L MID TO LOW BACK PAIN RATES 6/10 INTERMITTENTLY, COUGHING MAKES WORSE. STABBING TYPE PAIN Source: patient History of Present Illness Date Seen by Provider: Dec 06, 2021 Time Seen by Provider: 18:45 Initial Comments PT ARRIVES VIA POV FROM HOME C/O COUGH AND CONGESTION SINCE Saturday12/02/21 HAS HAD FEVER UP TO 101 AND CHILLS HAS BEEN HAVING SOME BACK PAIN AND SHORTNESS OF BREATH AT NIGHT--MOSTLY WHEN SHE COUGHS PT HAS HAD GREEN SPUTUM WENT TO SEE ANA JOYA AT [facility] IN [place] ON SATURDAY FOR THIS PROBLEM AND WAS PRESCRIBED DOXYCYCLINE PT REPORTS THAT BOTH COVID-19 AND FLU TESTS WERE NEGATIVE AT THAT TIME. STATES SHE THINKS SHE IS GETTING BETTER, BUT CAME HERE TONIGHT BECAUSE SYMPTOMS ARE WORSE WHEN SHE IS TRYING TO SLEEP PT HAS ASTHMA AND USES ALBUTEROL DAILY AND USED IT JUST PRIOR TO ARRIVAL PT ALSO USES SPIRIVA DAILY AND ARNIITY ( FLUTICASONE) INHALERS DAILY PT HAD RSV IN HAS NOT BEEN ON STEROIDS SINCE . HAS NOT TAKEN ANYTHING FOR COUGH OR FEVER. SYMPTOMS NO DIFFERENT THIS EVENING SON TESTED + FOR INFLUENZA ON 11/30/21, OTHER FAMILY MEMBERS HAVE BEEN ILL WITH THE SAME IN THE LAST WEEK. LMP--UNKNOWN--THINKS SHE HAD ONE IN OCTOBER. WITH VASECTOMY. PT IS NOT . YOUNGEST CHILD IS 1 HAS HAD COVID-19 VACCINES X 2, NO BOOSTER. LAST VACCINE WAS A YEAR AGO NO FLU VACCINE. PCP: ANA JOYA AT [facility] IN [place] Allergies and Home Medications Allergies Coded Allergies: bacitracin (Verified Allergy, Unknown, Rash, 11/30/19) neomycin (Verified Allergy, Unknown, Rash, 11/30/19) polymyxin B (Verified Allergy, Unknown, Rash, 11/30/19) Patient Home Medication List Benzonatate (Tessalon Perles) 100 Mg Capsule, 200 MG PO TID Prescribed by: CARLITOS DUNNE on 12/06/212099 Cetirizine HCl (Zyrtec) 10 Mg Tablet, 10 MG PO DAILY PRN for allergies, (Reported) Entered as Reported by: CAYLA ANDERSEN on 11/23/191003 Dexamethasone (Decadron) 6 Mg Tablet, 6 MG PO DAILY Prescribed by: CARLITOS DUNNE on 12/06/212099 Docusate Sodium (Dok) 100 Mg Capsule, 100 MG PO BID PRN for CONSTIPATION-1ST LINE Prescribed by: GEORGI MIGUEL on 11/30/19722 Fluticasone Furoate (Arnuity Ellipta) 200 Mcg Blst.w.dev, 200 MCG IH DAILY, (Reported) Entered as Reported by: CAYLA ANDERSEN on 11/23/191003 Guaifenesin/Dextromethorphan (Mucinex Dm ER 1,200-60 mg Tab) 1 Each Tbmp.12hr, 1 EACH PO BID Prescribed by: CARLITOS DUNNE on 12/06/212099 Ibuprofen (Ibu) 600 Mg Tablet, 600 MG PO Q6HR Prescribed by: GEORGI MIGUEL on 11/30/19722 Levothyroxine Sodium (Levothyroxine Sodium) 75 Mcg Tablet, 75 MCG PO DAILY, (Reported) Entered as Reported by: MORA HERNANDEZ on 04/23/18 0057 Vit W-Ca,Fe,FA(<1 mg) ( Formula) 1 Each Tablet, 1 EACH PO DAILY, (Reported) Entered as Reported by: CAYLA ANDERSEN on 11/23/191003 Tiotropium [place] (Spiriva) 1 Inh Aerp, 2 INH IH DAILY, (Reported) Entered as Reported by: CAYLA ANDERSEN on 11/23/191003 [Hydrocodone Bit/Acetaminophen] 5/,325 TAB, 1-2 TAB PO Q6HR PRN for PAIN- MODERATE (5-7) Prescribed by: GEORGI MIGUEL on 11/30/19722 Review of Systems Review of Systems Constitutional: see HPI, chills, fever EENTM: see HPI, nose congestion Respiratory: see HPI, cough, short of breath Cardiovascular: no symptoms reported Gastrointestinal: no symptoms reported Genitourinary: no symptoms reported : No Musculoskeletal: see HPI, back pain Skin: no symptoms reported Psychiatric/Neurological: No Symptoms Reported Hematologic/Lymphatic: No Symptoms Reported Immunological/Allergic: no symptoms reported Past Dajbfhw-Okeeio-Tasfqc Hx Patient Social History Tobacco Use?: No Substance use?: No Alcohol Use?: No Pt feels they are or have been: No Immunizations Up To Date Tetanus Booster (TDap): Unknown PED Vaccines UTD: No First/Initial COVID19 Vaccinat: 2020 Second COVID19 Vaccination Jace: 2020 COVID19 Vaccine Insulation Technician: PATRICK Seasonal Allergies Seasonal Allergies: No Past Medical History Surgeries: Yes (D&C, X 4) Section, Gallbladder, Thyroidectomy Respiratory: Yes ( BROCHIAL DYSPLASIA or interstitial lung disease, septic pneumonia 2018) Asthma, Pneumonia Currently Using CPAP: No Currently Using BIPAP: No Cardiac: No Neurological: No Hx : 9 Hx Para: 5 Hx Total # of Abortions (Sp): 4 Reproductive Disorders: No Female Reproductive Disorders: Denies Genitourinary: No Gastrointestinal: No Gall Bladder Disease Musculoskeletal: No Endocrine: Yes (hx thyroid radiation) Hypothyroidsim HEENT: No Loss of Vision: Denies Hearing Impairment: Denies Cancer: No Psychosocial: No Integumentary: No Blood Disorders: No Family Medical History Cardiovascular disease 19 MOTHER, Onset:50's - 60 Diabetes mellitus 19 FATHER, Onset:25's - 30 FH: prostate cancer 19 FATHER, Onset:50's - 60 Myocardial infarction 19 MOTHER, Onset:50's - 60 Heart Disease, Diabetes Physical Exam Vital Signs - First Documented 12/06/21 18:30 Temp 37.2 Pulse 111 Resp 24 B/P (MAP) 128/92 (104) Pulse Ox 96 Capillary Refill : Less Than 3 Seconds Height: 5'4.00" Weight: 156lbs. 2.0oz. 70.036911gq; 27.00 BMI Method:Stated General Appearance: WD/WN, no apparent distress, other (TALKS IN FULL SENTENCES AT LENGTH WITHOUT DIFFICULTY. DOES NOT APPEAR ILL OR TO BE IN ANY DISCOMFORT OR DISTRESS) HEENT: PERRL/EOMI, normal ENT inspection Respiratory: normal breath sounds, no respiratory distress, no accessory muscle use Cardiovascular: no edema, no JVD, no murmur, tachycardia (110'S) Gastrointestinal: normal bowel sounds, non tender, soft Extremities: normal inspection, no pedal edema, no calf tenderness, normal capillary refill Neurologic/Psychiatric: pulley maintainer II-XII nml as tested, no motor/sensory deficits, alert, normal mood/affect, oriented x 3 Skin: normal color, warm/dry Focused Exam Sepsis Stage: Ruled Out Reason for ruling out sepsis: DOES NOT MEET CRITERIA Possible Source: Pulmonary Lactate Level 12/06/21 19:15: Lactic Acid Level 0.72 Time of Focused Exam: 20:30 Respiratory: Normal Breath Sounds, No Accessory Muscle Use, No Respiratory Distress Cardiovascular: Regular Rate, Rhythm, No Edema, No Murmur Capillary Refill: Less Than 3 Seconds Skin: normal color, warm/dry Lactic Acid Level Laboratory Tests Test 12/06/21 19:15 Lactic Acid Level 0.72 MMOL/L (0.50-2.00) Within 3hrs of presentation: Admin fluids, Admin ABX, Blood cultures prior to ABX's, Focus exam, Lactate level Progress/Results/Core Measures Suspected Sepsis SIRS Temperature: Pulse: 111 Respiratory Rate: 24 Laboratory Tests 12/06/21 19:05: White Blood Count 9.9 Blood Pressure 128 /92 Mean: 104 12/06/21 19:15: Lactic Acid Level 0.72 Laboratory Tests 12/06/21 19:05: Platelet Count 187 12/06/21 19:15: Creatinine 0.78, Total Bilirubin 0.6 Results/Orders Lab Results Laboratory Tests Test 12/06/21 19:05 12/06/21 19:15 12/06/21 19:20 Range/Units White Blood Count 9.9 4.3-11.0 10^3/uL Red Blood Count 4.33 3.80-5.11 10^6/uL Hemoglobin 13.6 11.5-16.0 g/dL Hematocrit 40 35-52 % Mean Corpuscular Volume 92 80-99 fL Mean Corpuscular Hemoglobin 31 25-34 pg Mean Corpuscular Hemoglobin Concent 34 32-36 g/dL Red Cell Distribution Width 11.9 10.0-14.5 % Platelet Count 187 130-400 10^3/uL Mean Platelet Volume 10.5 9.0-12.2 fL Immature Granulocyte % (Auto) 0 % Neutrophils (%) (Auto) 82 H 42-75 % Lymphocytes (%) (Auto) 12 12-44 % Monocytes (%) (Auto) 5 0-12 % Eosinophils (%) (Auto) 0 0-10 % Basophils (%) (Auto) 0 0-10 % Neutrophils # (Auto) 8.1 H 1.8-7.8 10^3/uL Lymphocytes # (Auto) 1.2 1.0-4.0 10^3/uL Monocytes # (Auto) 0.5 0.0-1.0 10^3/uL Eosinophils # (Auto) 0.0 0.0-0.3 10^3/uL Basophils # (Auto) 0.0 0.0-0.1 10^3/uL Immature Granulocyte # (Auto) 0.0 0.0-0.1 10^3/uL Erythrocyte Sedimentation Rate 16 0-20 MM/HR Sodium Level 137 135-145 MMOL/L Potassium Level 3.7 3.6-5.0 MMOL/L Chloride Level 102 98-107 MMOL/L Carbon Dioxide Level 24 21-32 MMOL/L Anion Gap 11 5-14 MMOL/L Blood Urea Nitrogen 7 7-18 MG/DL Creatinine 0.78 0.60-1.30 MG/DL Estimat Glomerular Filtration Rate 100 BUN/Creatinine Ratio 9 Glucose Level 105 70-105 MG/DL Lactic Acid Level 0.72 0.50-2.00 MMOL/L Calcium Level 9.0 8.5-10.1 MG/DL Corrected Calcium 8.7 8.5-10.1 MG/DL Magnesium Level 1.9 1.6-2.4 MG/DL Total Bilirubin 0.6 0.1-1.0 MG/DL Aspartate Amino Transf (AST/SGOT) 21 5-34 U/L Alanine Aminotransferase (ALT/SGPT) 22 0-55 U/L Alkaline Phosphatase 64 40-136 U/L C-Reactive Protein High Sensitivity 12.99 H 0.00-0.50 MG/DL B-Type Natriuretic Peptide < 10.0 <100.0 PG/ML Total Protein 7.6 6.4-8.2 GM/DL Albumin 4.4 3.2-4.5 GM/DL Serum Test, Qualitative NEGATIVE NEGATIVE Influenza Type A (RT-PCR) Not Detected Not Detecte Influenza Type B (RT-PCR) Not Detected Not Detecte SARS-CoV-2 RNA (RT-PCR) Detected H Not Detecte My Orders Orders - CARLITOS DUNNE DO Ed Iv/Invasive Line Start (12/06/21 18:47) Monitor-Rhythm Ecg Trace Only (12/06/21 18:47) Bnp [place] (12/06/21 18:47) Cbc With Automated Diff (12/06/21 18:47) Comprehensive Metabolic Panel (12/06/21 18:47) Hs C Reactive Protein (12/06/21 18:47) Hcg,Qualitative Serum (12/06/21 18:47) Lactic Acid Analyzer (12/06/21 18:47) Magnesium (12/06/21 18:47) Blood Culture (12/06/21 18:47) Influenza A And B By Pcr (12/06/21 18:47) Erythrocyte Sedimentation Rate (12/06/21 18:47) Sputum Culture (12/06/21 18:47) Ed Iv/Invasive Line Start (12/06/21 18:47) Vital Signs Adult Sepsis Patie Q15M (12/06/21 18:47) Remove Rings In Anticipation O (12/06/21 18:47) Covid 19 Inhouse Test (12/06/21 18:47) Ed Iv/Invasive Line Start (12/06/21 18:47) Lactated Ringers (Lr 1000 Ml Iv Solution (12/06/21 19:00) Methylprednisolone Sod Succ (Solu-Medrol (12/06/21 20:00) Chest 1 View, Ap/Pa Only (12/06/21 18:47) Ct Angio Chest W (12/06/21 20:21) Iohexol Injection (Omnipaque 350 Mg/Ml 1 (12/06/21 20:30) Ns (Ivpb) (Sodium Chloride 0.9% Ivpb Bag (12/06/21 20:30) Ceftriaxone 1 Gm Pre-Mix (Rocephin 1 Gm (12/06/21 21:00) Azithromycin Injection (Zithromax Inject (12/06/21 21:00) Ondansetron Injection (Zofran Injectio (12/06/21 21:45) Medications Given in ED Current Medications Medications Dose Ordered Sig/Suzanna Route Start Time Stop Time Status Last Admin Dose Admin Azithromycin 500 mg/Sodium Chloride 255 ml @ 250 mls/hr ONCE ONCE IV 12/06/21 21:00 12/06/21 22:01 12/06/21 21:30 250 MLS/HR Ceftriaxone Sodium/Dextrose 50 ml @ 100 mls/hr ONCE ONCE IV 12/06/21 21:00 12/06/21 21:29 DC 12/06/21 21:00 100 MLS/HR Iohexol 100 ml ONCE ONCE IV 12/06/21 20:30 12/06/21 20:31 DC 12/06/21 20:42 66 ML Lactated Ringer's 1,000 ml @ 0 mls/hr Q0M ONCE IV 12/06/21 19:00 12/06/21 19:01 DC 12/06/21 19:20 1,000 MLS/HR Methylprednisolone Sodium Succinate 125 mg ONCE ONCE IVP 12/06/21 20:00 12/06/21 20:01 DC 12/06/21 20:01 125 MG Ondansetron HCl 4 mg ONCE ONCE IVP 12/06/21 21:45 12/06/21 21:46 12/06/21 21:38 4 MG Sodium Chloride 100 ml ONCE ONCE IV 12/06/21 20:30 12/06/21 20:31 DC 12/06/21 20:42 80 ML Vital Signs/I&O 12/06/21 18:30 Temp 37.2 Pulse 111 Resp 24 B/P (MAP) 128/92 (104) Pulse Ox 96 Capillary Refill : Less Than 3 Seconds Blood Pressure Mean: 104 Progress Note : Progress Note NO COUGH NO DYSPNEA NO HYPOXIA NO FEVER DURING ER STAY GIVEN IV SOLU-MEDROL, ROCEPHIN AND ZITHROMAX PT DID HAVE A LITTLE BIT OF NAUSEA, RESOLVED WITH ZOFRAN Diagnostic Imaging Comments CXR--PER RADIOLOGIST REPORT AT 2023 FINDINGS: There is mild right base atelectasis. No pleural effusion or pneumothorax. Heart size is normal. IMPRESSION: Mild right base airspace opacities suggestive of pneumonia. CT CHEST ANGIOGRAM--PER RADIOLOGIST REPORT AT 2054 FINDINGS: There is no pulmonary embolism. There are multifocal areas of groundglass and consolidation consistent with pneumonia. There are peripheral linear opacities consistent with scarring similar to prior exam. No pleural effusion. No pneumothorax. No suspicious nodules. There is no axillary or supraclavicular lymphadenopathy. There is no mediastinal lymphadenopathy. Heart size is normal. There are no coronary artery calcifications. No pericardial effusion. Aorta is normal in caliber. Limited views of the upper abdomen are unremarkable. There are no suspicious osseus lesions. IMPRESSION: 1. No pulmonary embolism. 2. Multifocal areas of groundglass and consolidation consistent with pneumonia. Reviewed: Reviewed by Me Departure Impression Primary Impression: Pneumonia due to COVID-19 virus Additional Impressions: COVID-19 virus infection History of asthma Disposition: 01 HOME, SELF-CARE Condition: Stable Departure-Patient Inst. Decision time for Depature: 20:56 Referrals: [facility] (PCP) Primary Care Physician JEFF JOYA (Family) Primary Care Physician Patient Instructions: COVID-19 ED, Preventing the Spread of an Infectious Disease, Asthma in Adults, Pneumonia, Adult ED Add. Discharge Instructions: CONTINUE DOXYCYCLINE PRESCRIBED USE YOUR INHALERS PRESCRIBED TYLENOL 1 GRAM/ MOTRIN 800 MG 4 TIMES A DAY FOR PAIN OR FEVER LOTS OF CLEAR LIQUIDS QUARANTINE FOR AT LEAST 10 DAYS. FOLLOW UP WITH YOUR DR IN 4-5 DAYS IF NO BETTER, RETURN TO ER IF WORSE. All discharge instructions reviewed with patient and/or family. Voiced understanding. Scripts Guaifenesin/Dextromethorphan (Mucinex Dm ER 1,200-60 mg Tab) 1 Each Tbmp.12hr 1 EACH PO BID, #20 EA Prov: CARLITOS DUNNE DO 12/06/21 Benzonatate (TESSALON PERLES) 100 Mg Capsule 200 MG PO TID, #50 CAP Prov: CARLITOS DUNNE DO 12/06/21 Dexamethasone (Decadron) 6 Mg Tablet 6 MG PO DAILY, #10 TAB Prov: CARLITOS DUNNE DO 12/06/21 Work/School Note: Work Release Form Date Seen in the Emergency Department: Dec 06, 2021 Return to Work: Dec 18, 2021 CARLITOS DUNNE DO Dec 06, 2021 19:08
[2021-12-06 19:19] LABS: MONOCYTES # (AUTO) 0.5 10^3/uL (0.0-1.0)
[2021-12-06 19:58] LABS: ALBUMIN 4.4 GM/DL (3.2-4.5); BILIRUBIN,TOTAL 0.6 MG/DL (0.1-1.0); CREATININE SERUM 0.78 MG/DL (0.60-1.30); MAGNESIUM 1.9 MG/DL (1.6-2.4); POTASSIUM 3.7 MMOL/L (3.6-5.0); TOTAL PROTEIN 7.6 GM/DL (6.4-8.2)
[2021-12-06] MEDS ORDERED: methylPREDNISolone 125 MG (Solu-MEDROL) VIAL IVP ONE (20:00)
[2021-12-06 20:03] LABS: HEMATOCRIT 40 % (35-52); HEMOGLOBIN 13.6 g/dL (11.5-16.0); MEAN CORPUSCULAR HEMOGLOBIN 31 pg (25-34); MEAN CORPUSCULAR HGB CONC 34 g/dL (32-36); MEAN CORPUSCULAR VOLUME 92 fL (80-99); WHITE BLOOD COUNT 9.9 10^3/uL (4.3-11.0)
[2021-12-06 20:04] LABS: BASOPHILS % (AUTO) 0 % (0-10); EOSINOPHILS % (AUTO) 0 % (0-10); LYMPHOCYTES % (AUTO) 12 % (12-44); MEAN PLATELET VOLUME 10.5 fL (9.0-12.2); MONOCYTES % (AUTO) 5 % (0-12); NEUTROPHILS % (AUTO) 82 % (42-75); PLATELET COUNT 187 10^3/uL (130-400)
[2021-12-06 20:05] LABS: LYMPHOCYTES # (AUTO) 1.2 10^3/uL (1.0-4.0); NEUTROPHILS # (AUTO) 8.1 10^3/uL (1.8-7.8)
--- NOTE | 2021-12-06 20:22 | Diagnostic Imaging Report ---
EXAMINATION: Chest 1 view. HISTORY: Cough and fever. COMPARISON: 11/20/2018. FINDINGS: There is mild right base atelectasis. No pleural effusion or pneumothorax. Heart size is normal. IMPRESSION: Mild right base airspace opacities suggestive of pneumonia. Dictated by: Dictated on workstation # [id number]
[2021-12-06] MEDS ORDERED: NS 100 ML (IVPB) BAG IV ONE (20:30)
[2021-12-06] MEDS ORDERED: IOHEXOL 350 MG/ML 100 ML (OMNIPAQUE 350) VIAL IV ONE (20:30)
[2021-12-06 20:33] LABS: ERYTHROCYTE SEDIMENTATION RATE 16 MM/HR (0-20)
--- NOTE | 2021-12-06 20:51 | Diagnostic Imaging Report ---
EXAMINATION: CT angiography of the chest. TECHNIQUE: Contrast enhanced thin section helical images were obtained through the chest with intravenous contrast timed for the optimal opacification of the arterial structures per CTA protocol. Post-processing, reconstructions and interpretation of angiographic images of the vessels was performed. 3D MIP reconstructions were performed and reviewed. All CT scans use one or more of the following dose optimizing techniques: automated exposure control, MA and/or KvP adjustment based on patient size and exam type or iterative reconstruction. HISTORY: Shortness of breath. COMPARISON: 12/03/2018. FINDINGS: There is no pulmonary embolism. There are multifocal areas of groundglass and consolidation consistent with pneumonia. There are peripheral linear opacities consistent with scarring similar to prior exam. No pleural effusion. No pneumothorax. No suspicious nodules. There is no axillary or supraclavicular lymphadenopathy. There is no mediastinal lymphadenopathy. Heart size is normal. There are no coronary artery calcifications. No pericardial effusion. Aorta is normal in caliber. Limited views of the upper abdomen are unremarkable. There are no suspicious osseus lesions. IMPRESSION: 1. No pulmonary embolism. 2. Multifocal areas of groundglass and consolidation consistent with pneumonia. Dictated by: Dictated on workstation # [id number]
[2021-12-06] MEDS ORDERED: cefTRIAXone 1 GM PRE-MIX 50 ML IV ONE (21:00)
[2021-12-06] MEDS ORDERED: DEXA6TAB6 PO (21:00)
[2021-12-06] MEDS ORDERED: BENZ100C18 PO (21:00)
[2021-12-06] MEDS ORDERED: GUAI1TBM19 PO (21:00)
[2021-12-06] MEDS ORDERED: AZITHROMYCIN INJECTION 500 MG in NS (IVPB) 250 ML IV ONE (21:00)
[2021-12-06] MEDS ORDERED: ONDANSETRON 4 MG/2 ML (SDV) Z0FRAN IVP ONE (21:45)
== END 2021-12-06 22:39 | disposition home or self-care (01) ==
LOC: EDUNIT# 18:25 → ER 18:27
DX: U07.1 COVID-19 (principal); J12.82 Pneumonia due to coronavirus disease 2019
CPT/HCPCS: 36415; 71045; 71275; 80053; 83605; 83735; 83880; 84703; 85025; 85652; 86141; 87040; 87636; 93041; 96374; 96375

== ENCOUNTER → 2022-01-10 | Outpatient (CLI) | payer MEDICAID ==
[~2022-01-10] MED LIST changes: +BENZ100C18 PO; +DEXA6TAB6 PO; +GUAI1TBM19 PO; +RT-ALBUTEROL SULF 2.5 MG/3 ML PRE-MIX VIAL INH ONE
== END ==
LOC: RT 13:00
PROVIDERS: ATTEND Internal Medicine Pulmonary Disease
DX: J84.9 Interstitial pulmonary disease, unspecified (principal)
CPT/HCPCS: 94060; 94726; 94729

== ENCOUNTER 2022-11-13 13:54 | Emergency (ER) | payer MEDICAID ==
[~2022-11-13] VITALS: Ht 160 cm; Wt 66.0 kg
[~2022-11-13 13:54] MED LIST changes: -RT-ALBUTEROL SULF 2.5 MG/3 ML PRE-MIX VIAL INH ONE
--- NOTE | 2022-11-13 14:16 | ED Lower Extremity ---
General Chief Complaint: Lower Extremity Stated Complaint: RT FOOT INJ Source: patient Exam Limitations: no limitations History of Present Illness Date Seen by Provider: Nov 13, 2022 Time Seen by Provider: 14:11 Initial Comments Patient is a 37-year-old female who presents ED with right foot pain. She states 1245 she rolled her foot over a toy on the ground at home. She heard a pop on the right lateral foot. Noted some swelling and bruising. She has not been able to walk. She used crutches from at home. She took ibuprofen immediately after the injury. No history of previous injury. Denies any ankle pain, fever, chills, chest pain, cough, shortness of breath. Allergies and Home Medications Allergies Coded Allergies: bacitracin (Verified Allergy, Unknown, Rash, 11/30/19) neomycin (Verified Allergy, Unknown, Rash, 11/30/19) polymyxin B (Verified Allergy, Unknown, Rash, 11/30/19) Patient Home Medication List Home Medication List Reviewed: Yes Benzonatate (Tessalon Perles) 100 Mg Capsule, 200 MG PO TID Prescribed by: CARLITOS DUNNE on 12/06/212099 Cetirizine HCl (Zyrtec) 10 Mg Tablet, 10 MG PO DAILY PRN for allergies, (Reported) Entered as Reported by: CAYLA ANDERSEN on 11/23/19 100 Dexamethasone (Decadron) 6 Mg Tablet, 6 MG PO DAILY Prescribed by: CARLITOS DUNNE on 12/06/212099 Docusate Sodium (Dok) 100 Mg Capsule, 100 MG PO BID PRN for CONSTIPATION-1ST LINE Prescribed by: GEORGI MIGUEL on 11/30/19722 Fluticasone Furoate (Arnuity Ellipta) 200 Mcg Blst.w.dev, 200 MCG IH DAILY, (Reported) Entered as Reported by: CAYLA ANDERSEN on 11/23/19 100 Guaifenesin/Dextromethorphan (Mucinex Dm ER 1,200-60 mg Tab) 1 Each Tbmp.12hr, 1 EACH PO BID Prescribed by: CARLITOS DUNNE on 12/06/212099 Ibuprofen (Ibu) 600 Mg Tablet, 600 MG PO Q6HR Prescribed by: GEORGI MIGUEL on 11/30/19722 Levothyroxine Sodium (Levothyroxine Sodium) 75 Mcg Tablet, 75 MCG PO DAILY, (Reported) Entered as Reported by: MORA HERNANDEZ on 04/23/18 0057 Vit W-Ca,Fe,FA(<1 mg) ( Formula) 1 Each Tablet, 1 EACH PO DAILY, (Reported) Entered as Reported by: CAYLA ANDERSEN on 11/23/19 1004 Tiotropium [place] (Spiriva) 1 Inh Aerp, 2 INH IH DAILY, (Reported) Entered as Reported by: CAYLA ANDERSEN on 11/23/19 1004 [Hydrocodone Bit/Acetaminophen] 5/,325 TAB, 1-2 TAB PO Q6HR PRN for PAIN-M ODERATE (5-7) Prescribed by: GEORGI MIGUEL on 11/30/19 0723 Review of Systems Constitutional: No chills, No diaphoresis, No malaise, No weakness EENTM: No hearing loss, No blurred vision, No double vision Respiratory: No cough, No dyspnea on exertion Cardiovascular: No chest pain Gastrointestinal: No abdominal pain, No diarrhea, No nausea, No vomiting Genitourinary: No decreased output, No discharge Musculoskeletal: joint pain, joint swelling Skin: change in color All Other Systems Reviewed Negative Unless Noted: Yes Past Crvgtqk-Mwftcq-Lvdyxi Hx Patient Social History Tobacco Use?: No Substance use?: No Alcohol Use?: No Pt feels they are or have been: No Immunizations Up To Date Tetanus Booster (TDap): Unknown PED Vaccines UTD: No Influenza Vaccine Up-to-Date: No; Not Current First/Initial COVID19 Vaccinat: 2020 Second COVID19 Vaccination Jace: 2020 Third COVID19 Vaccination Date: 2020 Seasonal Allergies Seasonal Allergies: No Past Medical History Surgeries: Yes (D&C, X 4) Section, Gallbladder, Thyroidectomy Respiratory: Yes ( BROCHIAL DYSPLASIA or interstitial lung disease, septic pneumonia 2018) Asthma, Pneumonia Currently Using CPAP: No Currently Using BIPAP: No Cardiac: No Neurological: No Reproductive Disorders: No Female Reproductive Disorders: Denies Genitourinary: No Gastrointestinal: No Gall Bladder Disease Musculoskeletal: No Endocrine: Yes (hx thyroid radiation) Hypothyroidsim HEENT: No Loss of Vision: Denies Hearing Impairment: Denies Cancer: No Psychosocial: No Integumentary: No Blood Disorders: No Family Medical History Cardiovascular disease 19 MOTHER, Onset:50's - 60 Diabetes mellitus 19 FATHER, Onset:25's - 30 FH: prostate cancer 19 FATHER, Onset:50's - 60 Myocardial infarction 19 MOTHER, Onset:50's - 60 Heart Disease, Diabetes Physical Exam Vital Signs Vital Signs - First Documented 11/13/22 14:03 Temp 36.2 Pulse 105 Resp 16 B/P (MAP) 126/87 (100) Pulse Ox 95 Capillary Refill : Height, Weight, BMI Height: 5'4.00" Weight: 156lbs. 2.0oz. 70.023873oh; 27.00 BMI Method:Stated General Appearance: WD/WN, no apparent distress HEENT: PERRL/EOMI, normal ENT inspection, TMs normal, pharynx normal Neck: non-tender, full range of motion, supple Cardiovascular: regular rate, rhythm, no edema, no gallop, no JVD Respiratory: chest non-tender, lungs clear, normal breath sounds, no respiratory distress, no accessory muscle use Gastrointestinal: normal bowel sounds, non tender, soft, no organomegaly Back: normal inspection, no CVA tenderness Feet: right foot pain (Tenderness to palpate right fourth and fifth metatarsal), right foot soft tissue tenderness (Right lateral foot tenderness), right foot swelling Neurologic/Psychiatric: 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 Neurovascularly pre and post splint. Pre-Procedure NV Exam: Yes Tru wrap: Yes Hand-Made Type: orthoglass Splint Application: Short Leg Progress/Results/Core Measures Results/Orders My Orders Orders - HÉCTOR ELIZALDE Foot, Right, 3 View (11/13/22 14:11) Vital Signs/I&O 11/13/22 14:03 Temp 36.2 Pulse 105 Resp 16 B/P (MAP) 126/87 (100) Pulse Ox 95 Departure Communication (PCP) X-ray was reviewed by myself shows a acute comminuted fracture of the base of the fifth metacarpal. Neurovascularly intact. Patient refused anything for pain. She took ibuprofen right before arrival. She was brought to ED by POV and was on crutches. Patient was placed in a short leg posterior Ortho-Glass splint. We will provide stronger pain medication [place] to take as needed. Ibuprofen to help with pain and swelling. If any worsening symptoms return back to ED for further evaluation. Provided orthopedic follow-up Dr. Webster in 7 to 10 days Impression Primary Impression: Fracture of foot Disposition: 01 HOME, SELF-CARE Condition: Stable Departure-Patient Inst. Decision time for Depature: 14:58 Referrals: [facility] [place] Primary Care Physician JEFF JOYA (Family) Primary Care Physician GEORGI WEBSTER MD Patient Instructions: Foot Fracture ED Add. Discharge Instructions: Nonweightbearing. Recommend using crutches. Splint is not to get wet. Recommend ibuprofen to help with pain and swelling. We will provide stronger pain medication as needed. Follow-up with orthopedic in 1 week. Recommend calling the office today or tomorrow to set up appointment All discharge instructions reviewed with patient and/or family. Voiced understanding. HÉCTOR ELIZALDE Nov 13, 2022 14:16
--- NOTE | 2022-11-13 14:37 | Diagnostic Imaging Report ---
Indication: Right foot pain AP, oblique, and lateral views of the right foot are obtained. There is acute comminuted fracture at the base of the 5th metatarsal. There is no dislocation. Remaining structures are intact. Impression: Acute comminuted fracture of the base of 5th metatarsal. Dictated by: Dictated on workstation # [id number]
[2022-11-13 15:43] VITALS: BP 122/60
== END 2022-11-13 15:43 | disposition home or self-care (01) ==
LOC: EDUNIT# 13:54 → ER 13:56
DX: S92.351A Displaced fracture of fifth metatarsal bone, right foot, initial encounter for closed fracture (principal); X50.1XXA Overexertion from prolonged static or awkward postures, initial encounter
CPT/HCPCS: 29515; 73630